=== PATIENT | female | born 1940 | race Caucasian/White ===

== ENCOUNTER 2023-06-10 10:30 | Inpatient (IN) ==
[2023-06-10] MEDS ORDERED: SODIUM CHLORIDE 0.9% 1,000 ML IV ONE ×2 (10:46→14:18)
--- NOTE | 2023-06-10 10:48 | Emergency Department Note ---
Impression & Plan Urinary tract infection, Acute hypotension, Kidney stone on left side, Compression fx, lumbar spine ED Provider Note NAME: MAX BEASLEY AGE: 82 SEX: F : 1940 ARRIVES VIA: Ambulance INFORMANT: Patient, EMS ED PROVIDER(S): Gui Medrano DO CHIEF COMPLAINT: Fever HPI: The patient is an 82-year-old female who presented to the emergency department by ambulance. She does not offer much history. Much of the history was obtained from the prehospital personnel. Patient reportedly is being treated for a urinary tract infection. The patient has been on multiple antibiotics and recently was started on Bactrim. The patient was previously on Macrobid. There was a reported fever as well as lower abdominal pain bilaterally. There is been no reported vomiting. There is been no reported syncope. The patient was sent by the custodial staff. She was treated with Tylenol prior to arrival. ROS: See above HPI for pertinent positives & negatives. A total of 10 systems reviewed and were otherwise negative. PAST MEDICAL HISTORY: See Below PAST SURGICAL HISTORY: See Below FAMILY HISTORY: See Below SOCIAL HISTORY: See Below HOME MEDICATIONS: See Below ALLERGIES: See Below VITALS: See Below PHYSICAL EXAMINATION: GENERAL: Patient is awake alert in no acute distress patient is resting comfortably and showing no signs of anxiety EYES: The conjunctivae are clear. The pupils are round and reactive. EARS, NOSE, MOUTH AND THROAT: The nose is without any evidence of any deformity. NECK: The neck is nontender and supple. RESPIRATORY: Normal respiratory effort is noted there is no evidence of wheezing rhonchi or rales CARDIOVASCULAR: Regular rate and rhythm noted there no murmurs rubs or gallops normal S1 normal S2. GASTROINTESTINAL: The abdomen is soft. Abdomen is nontender. MUSCULOSKELETAL/EXTREMITIES: There is no evidence of gross deformity full range of motion is noted in the hips and shoulders. SKIN: There is no obvious evidence of any rash. There are no petechiae, pallor or cyanosis noted. NEUROLOGIC: Patient is awake alert and oriented to person and place but not time. Strength was symmetric but diminished MEDICAL DECISION MAKING: The patient is an 82-year-old female who presented to the emergency department with multiple complaints. The patient's had recurrent urinary tract infection but also has a history of kidney stone. She had no discomfort but a reported fever was noted prior to sending the patient to the emergency department. She was treated with IV fluids and IV antibiotics. She was reevaluated multiple times. I discussed the patient's laboratory and radiographic studies with her and her family. Given her ongoing hypotension and her findings on workup I did discuss her condition with the on-call [facility] [address] hospitalist. I will also consult the on-call urologist about the patient. He is unclear if she definitely needs a stent at this time although she may have an infected kidney stone. Triage Nursing notes reviewed. Prior medical records reviewed Vital Signs: reviewed and remarkable for hypotension. Differential diagnosis: Viral syndrome, otitis, pharyngitis, pneumonia, influenza, meningitis, urinary tract infection, sepsis, bacteremia, as well as other pathologies. ER treatment provided: See below Diagnostics interpreted by me: ECG: EKG was obtained in the emergency department. My interpretation is normal sinus rhythm at 63 bpm. There is no ectopy. There is no acute ST segment abnormalities. Anterior T wave versions were noted. No previous EKG was available for comparison. Cardiac Monitoring: An order was placed for continuous cardiac monitoring. The monitor shows a rate of 59 bpm with sinus bradycardia Laboratory studies: As stated above and show below. Imaging studies: See below. Radiographic imaging was reviewed by myself Consultation(s): Dr. Philippe was notified about the patient. He will evaluate the patient in the emergency department. I discussed this case with Dr. Herrmann who is on-call for urology. Past Med/Surg History Medical History Dementia Social History Smoking Status: Never smoker Preferred Language: Omani Feels Safe at Home: Yes Allergies Allergies Allergy/AdvReac Type Severity Reaction Status Date / Time No Known Allergies Allergy Unverified 06/10/23 13:37 Home Meds Home Medications Medication Instructions Recorded Confirmed apixaban 5 mg tablet (Eliquis) 5 mg PO BID 04/05/23 06/10/23 cholecalciferol (vitamin D3) 125 125 mcg PO DAILY 04/05/23 06/10/23 mcg (5,000 unit) tablet (Vitamin D3) donepezil 10 mg tablet 10 mg PO HS 04/05/23 06/10/23 escitalopram oxalate 10 mg tablet 10 mg PO DAILY 04/05/23 06/10/23 lisinopril 5 mg tablet 5 mg PO DAILY 04/05/23 06/10/23 melatonin 5 mg tablet 5 mg PO HS 04/05/23 06/10/23 pantoprazole 40 mg tablet,delayed 40 mg PO DAILY 04/05/23 06/10/23 release calcium carbonate 600 mg calcium 600 mg PO DAILY 06/10/23 06/10/23 (1,500 mg) tablet (Calcium) lorazepam 0.5 mg tablet See Rx Instructions .Route .COMPLEX 06/10/23 06/10/23 potassium chloride 20 mEq oral 20 meq PO BID 06/10/23 06/10/23 packet Results & Data (ED) Vital Signs Vital Signs - 24 hr 06/10/23 10:36 06/10/23 10:38 06/10/23 10:40 Temperature Temperature Source Pulse Rate 63 66 65 Pulse Rate from SpO2 Sensor 62 65 Respiratory Rate 24 21 Blood Pressure Blood Pressure Mean Pulse Oximetry 93 93 Oxygen Delivery Method Sepsis Recent Fever Within 48 Hours Sepsis New/Unexplained Change in Mental Status Sepsis Action Taken by Nursing 06/10/23 10:41 06/10/23 10:47 06/10/23 10:50 Temperature 37.2 C Temperature Source Oral Pulse Rate 65 58 L Pulse Rate from SpO2 Sensor 58 L Respiratory Rate 18 21 Blood Pressure 102/51 L Blood Pressure Mean 68 Pulse Oximetry 93 90 93 Oxygen Delivery Method Room Air Room Air Sepsis Recent Fever Within 48 Hours No Sepsis New/Unexplained Change in Mental Status No Sepsis Action Taken by Nursing No Action Required 06/10/23 11:00 06/10/23 11:00 06/10/23 11:10 Temperature Temperature Source Pulse Rate 63 59 L Pulse Rate from SpO2 Sensor 63 60 Respiratory Rate 20 24 Blood Pressure 95/52 L Blood Pressure Mean 62 Pulse Oximetry 92 91 Oxygen Delivery Method Sepsis Recent Fever Within 48 Hours Sepsis New/Unexplained Change in Mental Status Sepsis Action Taken by Nursing 06/10/23 11:30 06/10/23 11:40 06/10/23 11:50 Temperature Temperature Source Pulse Rate 60 57 L 56 L Pulse Rate from SpO2 Sensor Respiratory Rate 13 22 21 Blood Pressure Blood Pressure Mean Pulse Oximetry Oxygen Delivery Method Sepsis Recent Fever Within 48 Hours Sepsis New/Unexplained Change in Mental Status Sepsis Action Taken by Nursing 06/10/23 12:00 06/10/23 12:01 06/10/23 12:02 Temperature Temperature Source Pulse Rate 55 L 60 Pulse Rate from SpO2 Sensor Respiratory Rate 16 17 Blood Pressure 100/48 L Blood Pressure Mean 78 Pulse Oximetry Oxygen Delivery Method Sepsis Recent Fever Within 48 Hours Sepsis New/Unexplained Change in Mental Status Sepsis Action Taken by Nursing 06/10/23 12:02 06/10/23 12:10 06/10/23 12:20 Temperature Temperature Source Pulse Rate 61 62 58 L Pulse Rate from SpO2 Sensor Respiratory Rate 22 23 23 Blood Pressure Blood Pressure Mean Pulse Oximetry Oxygen Delivery Method Sepsis Recent Fever Within 48 Hours Sepsis New/Unexplained Change in Mental Status Sepsis Action Taken by Nursing 06/10/23 12:30 06/10/23 12:30 06/10/23 12:40 Temperature Temperature Source Pulse Rate 61 54 L Pulse Rate from SpO2 Sensor Respiratory Rate 25 H 21 Blood Pressure 98/53 L Blood Pressure Mean 60 Pulse Oximetry Oxygen Delivery Method Sepsis Recent Fever Within 48 Hours Sepsis New/Unexplained Change in Mental Status Sepsis Action Taken by Nursing 06/10/23 12:50 06/10/23 13:00 06/10/23 13:00 Temperature Temperature Source Pulse Rate 55 L 57 L Pulse Rate from SpO2 Sensor Respiratory Rate 20 23 Blood Pressure 96/53 L Blood Pressure Mean 63 Pulse Oximetry Oxygen Delivery Method Sepsis Recent Fever Within 48 Hours Sepsis New/Unexplained Change in Mental Status Sepsis Action Taken by Nursing 06/10/23 13:10 06/10/23 13:20 06/10/23 13:30 Temperature Temperature Source Pulse Rate 52 L 61 Pulse Rate from SpO2 Sensor Respiratory Rate 17 23 Blood Pressure 100/48 L Blood Pressure Mean 63 Pulse Oximetry Oxygen Delivery Method Sepsis Recent Fever Within 48 Hours Sepsis New/Unexplained Change in Mental Status Sepsis Action Taken by Nursing 06/10/23 13:30 06/10/23 13:40 06/10/23 13:50 Temperature Temperature Source Pulse Rate 60 57 L 54 L Pulse Rate from SpO2 Sensor Respiratory Rate 24 22 24 Blood Pressure Blood Pressure Mean Pulse Oximetry Oxygen Delivery Method Sepsis Recent Fever Within 48 Hours Sepsis New/Unexplained Change in Mental Status Sepsis Action Taken by Nursing 06/10/23 13:56 06/10/23 13:56 06/10/23 14:00 Temperature Temperature Source Pulse Rate 52 L Pulse Rate from SpO2 Sensor Respiratory Rate 20 Blood Pressure 105/49 L 96/50 L Blood Pressure Mean 71 60 Pulse Oximetry Oxygen Delivery Method Sepsis Recent Fever Within 48 Hours Sepsis New/Unexplained Change in Mental Status Sepsis Action Taken by Nursing 06/10/23 14:00 06/10/23 14:10 06/10/23 14:20 Temperature Temperature Source Pulse Rate 50 L 55 L 55 L Pulse Rate from SpO2 Sensor Respiratory Rate 18 19 18 Blood Pressure Blood Pressure Mean Pulse Oximetry Oxygen Delivery Method Sepsis Recent Fever Within 48 Hours Sepsis New/Unexplained Change in Mental Status Sepsis Action Taken by Nursing 06/10/23 14:30 06/10/23 14:30 06/10/23 14:39 Temperature Temperature Source Pulse Rate 59 L 55 L Pulse Rate from SpO2 Sensor Respiratory Rate 22 Blood Pressure 87/59 L Blood Pressure Mean 62 Pulse Oximetry Oxygen Delivery Method Sepsis Recent Fever Within 48 Hours Sepsis New/Unexplained Change in Mental Status Sepsis Action Taken by Nursing 06/10/23 14:40 06/10/23 14:50 06/10/23 15:00 Temperature Temperature Source Pulse Rate 55 L 60 65 Pulse Rate from SpO2 Sensor Respiratory Rate 19 21 21 Blood Pressure Blood Pressure Mean Pulse Oximetry Oxygen Delivery Method Sepsis Recent Fever Within 48 Hours Sepsis New/Unexplained Change in Mental Status Sepsis Action Taken by Nursing 06/10/23 15:00 06/10/23 15:10 06/10/23 15:20 Temperature Temperature Source Pulse Rate 58 L 59 L Pulse Rate from SpO2 Sensor Respiratory Rate 15 15 Blood Pressure 102/62 Blood Pressure Mean 73 Pulse Oximetry Oxygen Delivery Method Sepsis Recent Fever Within 48 Hours Sepsis New/Unexplained Change in Mental Status Sepsis Action Taken by Nursing 06/10/23 15:30 06/10/23 15:30 06/10/23 15:40 Temperature Temperature Source Pulse Rate 58 L 59 L Pulse Rate from SpO2 Sensor Respiratory Rate 23 15 Blood Pressure 97/49 L Blood Pressure Mean 54 Pulse Oximetry Oxygen Delivery Method Sepsis Recent Fever Within 48 Hours Sepsis New/Unexplained Change in Mental Status Sepsis Action Taken by Half-Way Medications Current Medication List: was personally reviewed by me Laboratory Data Attestation: I reviewed the patient's lab results. 06/10/23 10:40 06/10/23 10:40 Lab Results 06/10/23 06/10/23 06/10/23 Range/Units 10:40 12:10 15:07 WBC 6.93 (4.8-10.8) K/ul RBC 4.83 (4.20-5.40) M/uL Hgb 14.1 (12.0-16.0) g/dl Hct 43.3 (37.0-47.0) % MCV 89.6 (80.0-100.0) fL MCH 29.2 (25.0-34.0) pg MCHC 32.6 (32.0-36.0) g/dL RDW Std Deviation 44.5 (36.4-46.3) fL RDW Coeff of Estefani 13.5 (11.5-14.5) % Plt Count 133 (130-400) K/uL MPV 10.4 (9.4-12.4) fL Immature Gran % (Auto) 1.2 % Neut % (Auto) 85.4 % Lymph % (Auto) 5.3 % [place] % (Auto) 7.4 % Eos % (Auto) 0.1 % Baso % (Auto) 0.6 % Neut # (Auto) 5.92 (1.40-6.50) K/uL Lymph # (Auto) 0.37 L (1.20-3.40) K/uL [place] # (Auto) 0.51 (0.11-0.59) K/uL Eos # (Auto) 0.01 (0.00-0.50) K/uL Baso # (Auto) 0.04 (0.00-0.20) K/uL Immature Gran # (Auto) 0.08 (0.01-0.20) K/uL PT 12.5 H (9.0-12.0) Seconds INR 1.2 H (0.9-1.1) APTT 35.9 H (21.0-31.0) Seconds PTT Ratio 1.3 Sodium 137 (136-145) mmol/L Potassium 5.0 (3.5-5.1) mmol/L Chloride 105 (98-107) mmol/L Carbon Dioxide 23 (21-32) mmol/L Anion Gap 9 (3-11) BUN 19 (6-23) mg/dl Creatinine 1.67 H (0.6-1.2) mg/dl Est Cr Clr Drug Dosing 23.5 ml/min Est GFR ( Amer) 32.2 ml/min Est GFR (Non-Af Amer) 27.8 ml/min BUN/Creatinine Ratio 11.4 (10-20) Glucose 107 H (70-99(Fasting)) mg/dl Lactate 1.1 (0.4-2.0) mmol/L Calcium 9.0 (8.6-10.3) mg/dl Magnesium 2.0 (1.7-2.4) mg/dl Total Bilirubin 0.7 (0.2-1.0) mg/dl Direct Bilirubin 0.1 (0-0.2) mg/dl AST 18 (13-39) U/L ALT 7 (7-52) U/L Alkaline Phosphatase 46 (34-104) U/L Troponin I High Sens 10.3 (0-14) pg/ml Total Protein 6.7 (6.0-8.3) gm/dl Albumin 3.8 (3.4-5.0) gm/dl Procalcitonin 0.22 (0-0.5) ng/ml Urine Color Dark Yellow Urine Appearance Cloudy A (Clear) Urine pH 5.0 (4.5-7.5) Ur Specific [place] 1.017 (1.000-1.030) Urine Protein 1+ H (Negative) Urine Glucose (UA) Negative (Negative) Urine Ketones 2+ H (Negative) Urine Blood 3+ H (Negative) Urine Nitrite Negative (Negative) Urine Bilirubin Negative (Negative) Urine Urobilinogen Negative (Negative) Ur Leukocyte Esterase 2+ H (Negative) Urine WBC (Auto) 10-30 H (0-5) /hpf Urine RBC (Auto) >30 H (0-4) /hpf U Hyaline Cast (Auto) 1-5 (0-5) /lpf U Epithel Cells (Auto) 0-5 (0-5) /lpf Urine Bacteria (Auto) Negative (Negative) Urine Yeast Not Reportable SARS-CoV-2 (PCR) NEGATIVE (Negative) Influenza Type A (PCR) Negative (Neg) Influenza Type B (PCR) Negative (Neg) RSV (RT-PCR) Negative (Neg) Administered Medications Discontinued Medications Sodium Chloride (Nss) 1,000 mls @ 999 mls/hr IV .Q1H1M ONE Stop: 06/10/23 11:46 Last Infusion: 06/10/23 12:22 Dose: Infused Documented By: Admin: 06/10/23 11:13 Dose: 999 mls/hr Documented By: GIACOMO Sodium Chloride (Nss) 1,000 mls @ 999 mls/hr IV .Q1H1M ONE Stop: 06/10/23 15:18 Last Infusion: 06/10/23 15:35 Dose: Infused Documented By: Admin: 06/10/23 14:28 Dose: 999 mls/hr Documented By: GIACOMO Cefepime HCl (Maxipime) 2,000 mg in 20 mls @ 5 mls/min IV NOW STA; Protocol Stop: 06/10/23 15:40 Last Admin: 06/10/23 16:37 Dose: 5 mls/min Documented By: GIACOMO Imaging Data Attestation: I personally reviewed and interpreted this imaging study as follows: My Impression: 1 view chest x-ray was obtained in the emergency department. My interpretation is no free air or definite infiltrate, final report below. CT of the abdomen and pelvis was obtained in the emergency department. My interpretation is left-sided kidney stone, no free air, final report below. Radiologist's Impression: Abdomen/Pelvis CT 06/10/23 10:[address] WITHOUT CONTRAST CT DOSE: 1003.5 mGy.cm HISTORY: Acute febrile urinary tract infection and left flank pain kidney stone with fever TECHNIQUE: Multiaxial CT images of the abdomen and pelvis were performed without contrast. A dose lowering technique was utilized adhering to the principles of ALARA. COMPARISON STUDY: None. FINDINGS: Calcified hilar lymph nodes, pulmonary, splenic and hepatic granulomata. Coronary artery calcifications. Mild bibasilar bronchial wall thickening. There are a few low suspicion solid pulmonary nodules noted within the lung bases measuring up to 3 mm. No free air. Unremarkable pancreas, adrenal glands and gallbladder. The liver is otherwise unremarkable. Mild nonspecific bilateral perinephric stranding. 3.1 cm cyst of the posterior interpolar left kidney. There is a 1.8 cm calculus within the left renal pelvis. Mild hydronephrosis. No ureteral calculi identified. Fibroid uterus. Unremarkable urinary bladder. Indeterminate likely benign 2.4 cm left adnexal cystic focus. Atherosclerosis of the aorta. No lymphadenopathy. Tiny hiatal hernia. No bowel obstruction. Mild/moderate rectal fecal retention. Colonic diverticulosis. No CT evidence of acute appendicitis. Unremarkable soft tissues. No acute fracture. Degenerative changes of the spine, pelvis and hips. Moderate L1 superior endplate compression deformity without retropulsion. Subacute to chronic nondisplaced fracture at S3-S4 anteriorly. IMPRESSION: 1. 1.8 cm calculus within the left renal pelvis results in mild hydronephrosis. 2. No bowel obstruction or bowel wall thickening. 3. Prior granulomatous disease. 4. Age-indeterminate L1 compression deformity without retropulsion, likely subacute. 5. Additional findings as above. ACT 112: Negative or not required by law. The above report was generated using voice recognition software. It may contain grammatical, syntax or spelling errors. Electronically signed by: Joseph Hernandez M.D. 06/10/2023 12:02 PM Chest X-Ray 06/10/23 10:46 SINGLE VIEW CHEST CLINICAL HISTORY: Sepsis FINDINGS: An AP, portable, upright chest radiograph is compared to study dated 04/05/2023. The examination is mildly degraded by portable technique and patient rotation. The cardiomediastinal silhouette is top normal for projection noting atherosclerotic calcification of the thoracic aorta. Chronic interstitial thickening is similar to previous. There is bibasilar scarring/atelectasis. No airspace consolidation or large pleural effusion is identified. No pneumothorax is seen. The skeletal structures are osteopenic. The bony thorax is grossly intact. Fusion hardware is noted in the lower cervical spine. IMPRESSION: No active disease in the chest. ACT 112: Negative or not required by law. Electronically signed by: Shashi Fernandez M.D. 06/10/2023 11:04 AM Discharge Plan Visit Data Chief Complaint: Abdominal Pain Stated Complaint: AB PAIN ED Provider: Gui Medrano Discharge Problem: Urinary tract infection, Acute hypotension, Kidney stone on left side, Compression fx, lumbar spine Patient Disposition: Being Evaluated by Hospitalist Forms Stand Alone Forms: My [facility] Prescriptions Prescriptions: No Action donepezil 10 mg Tablet 10 mg PO HS pantoprazole 40 mg Tablet,Delayed Release (Dr/Ec) 40 mg PO DAILY lisinopril 5 mg Tablet 5 mg PO DAILY escitalopram oxalate 10 mg Tablet 10 mg PO DAILY melatonin 5 mg Tablet 5 mg PO HS Eliquis 5 mg Tablet 5 mg PO BID cholecalciferol (vitamin D3) [Vitamin D3] 125 mcg (5,000 unit) Tablet 125 mcg PO DAILY calcium carbonate [Calcium 600] 600 mg calcium (1,500 mg) Tablet 600 mg PO DAILY potassium chloride 20 mEq packet 20 meq PO BID lorazepam 0.5 mg tablet See Rx Instructions .ROUTE .COMPLEX Rx Instructions: Take 0.5mg by mouth in the morning and 1mg by mouth at bedtime if needed Referrals Referrals: Chuy Mcdonald [Primary Care Provider] - Discharge Problem: Urinary tract infection Qualifiers: Urinary tract infection type: site unspecified Hematuria presence: with hematuria Qualified Code(s): N39.0 - Urinary tract infection, site not specified Compression fx, lumbar spine Qualifiers: Encounter type: initial encounter Lumbar vertebra fracture level: L1 Qualified Code(s): S32.010A - Wedge compression fracture of first lumbar vertebra, initial encounter for closed fracture
--- NOTE | 2023-06-10 11:06 | XRay Report ---
SINGLE VIEW CHEST CLINICAL HISTORY: Sepsis FINDINGS: An AP, portable, upright chest radiograph is compared to study dated 04/05/2023. The examina tion is mildly degraded by portable technique and patient rotation. The cardiomediastinal silhouette is top normal for projection noting atherosclerotic calcification of the thoracic aorta. Chronic int erstitial thickening is similar to previous. There is bibasilar scarring/atelectasis. No airspace con solidation or large pleural effusion is identified. No pneumothorax is seen. The skeletal structures are osteopenic. The bony thorax is grossly intact. Fusion hardware is noted in the lower cervical spi ne. IMPRESSION: No active disease in the chest. ACT 112: Negative or not required by law. Electronically signed by: Shashi Fernandez M.D. 06/10/2023 11:04 AM
[2023-06-10 11:19] LABS: Basophils # (auto) 0.04 K/uL (0.00-0.20); Basophils % (auto) 0.6 %; Eosinophils # (auto) 0.01 K/uL (0.00-0.50); Eosinophils % (auto) 0.1 %; Hematocrit (blood only) 43.3 % (37.0-47.0); Hemoglobin 14.1 g/dl (12.0-16.0); Immature Granulocytes # (auto) 0.08 K/uL (0.01-0.20); Immature Granulocytes % (auto) 1.2 %; Lymphocytes # (auto) 0.37 K/uL (1.20-3.40); Lymphocytes % (auto) 5.3 %; Mean Corpuscular Hemoglobin 29.2 pg (25.0-34.0); Mean Corpuscular Hgb Conc 32.6 g/dL (32.0-36.0); Mean Corpuscular Volume 89.6 fL (80.0-100.0); Mean Platelet Volume 10.4 fL (9.4-12.4); Monocytes # (auto) 0.51 K/uL (0.11-0.59); Monocytes % (auto) 7.4 %; Neutrophils # (auto) 5.92 K/uL (1.40-6.50); Neutrophils % (auto) 85.4 %; Platelet Count 133 K/uL (130-400); RDW Coefficient of Variation 13.5 % (11.5-14.5); RDW Standard Deviation 44.5 fL (36.4-46.3); Red Blood Count 4.83 M/uL (4.20-5.40); White Blood Count 6.93 K/ul (4.8-10.8)
[2023-06-10 11:36] LABS: INR 1.2 (0.9-1.1); Partial Thromboplastin Ratio 1.3; Partial Thromboplastin Time 35.9 Seconds (21.0-31.0); Prothrombin Time 12.5 Seconds (9.0-12.0)
[2023-06-10 11:40] LABS: Albumin Level 3.8 gm/dl (3.4-5.0); BUN Creatinine Ratio 11.4 (10-20); Bilirubin Direct 0.1 mg/dl (0-0.2); Bilirubin,Total 0.7 mg/dl (0.2-1.0); Creatinine Clr Calc Pharmacy 23.5 ml/min; Est GFR (African American) 32.2 ml/min; Est GFR (Non-African American) 27.8 ml/min; Total Protein 6.7 gm/dl (6.0-8.3); Troponin I High Sensitivity 10.3 pg/ml (0-14)
--- NOTE | 2023-06-10 12:03 | CT Scan Report ---
ABDOMEN AND PELVIS CT WITHOUT CONTRAST CT DOSE: 1003.5 mGy.cm HISTORY: Acute febrile urinary tract infection and left flank pain kidney stone with fever TECHNIQUE: Multiaxial CT images of the abdomen and pelvis were performed without contrast. A dose lo wering technique was utilized adhering to the principles of ALARA. COMPARISON STUDY: None. FINDINGS: Calcified hilar lymph nodes, pulmonary, splenic and hepatic granulomata. Coronary artery ca lcifications. Mild bibasilar bronchial wall thickening. There are a few low suspicion solid pulmonary nodules noted within the lung bases measuring up to 3 mm. No free air. Unremarkable pancreas, adrena l glands and gallbladder. The liver is otherwise unremarkable. Mild nonspecific bilateral perinephric stranding. 3.1 cm cyst of the posterior interpolar left kidney . There is a 1.8 cm calculus within the left renal pelvis. Mild hydronephrosis. No ureteral calculi i dentified. Fibroid uterus. Unremarkable urinary bladder. Indeterminate likely benign 2.4 cm left adne xal cystic focus. Atherosclerosis of the aorta. No lymphadenopathy. Tiny hiatal hernia. No bowel obstruction. Mild/moderate rectal fecal retention. Colonic diverticulosi s. No CT evidence of acute appendicitis. Unremarkable soft tissues. No acute fracture. Degenerative c hanges of the spine, pelvis and hips. Moderate L1 superior endplate compression deformity without ret ropulsion. Subacute to chronic nondisplaced fracture at S3-S4 anteriorly. IMPRESSION: 1. 1.8 cm calculus within the left renal pelvis results in mild hydronephrosis. 2. No bowel obstruction or bowel wall thickening. 3. Prior granulomatous disease. 4. Age-indeterminate L1 compression deformity without retropulsion, likely subacute. 5. Additional findings as above. ACT 112: Negative or not required by law. The above report was generated using voice recognition software. It may contain grammatical, syntax o r spelling errors. Electronically signed by: Joseph Hernandez M.D. 06/10/2023 12:02 PM
[2023-06-10 12:56] LABS: Influenza A virus by PCR Negative (Neg); Influenza B virus by PCR Negative (Neg); RSV by PCR Negative (Neg); SARS CoV2 RNA(COVID-19) Ceph NEGATIVE (Negative)
[2023-06-10] MEDS ORDERED: CEFEPIME 2,000 MG/20 ML VIAL IV STA (15:37)
[2023-06-10 15:51] LABS: Appearance Urine Cloudy (Clear); Bacteria Urine Automated Negative (Negative); Bilirubin Urine Negative (Negative); Blood Urine 3+ (Negative); Color Urine Dark Yellow; Epithelial Cell Urine Auto 0-5 /lpf (0-5); Glucose Urine UA Negative (Negative); Ketones Urine 2+ (Negative); Leukocyte Esterase Urine 2+ (Negative); Nitrite Urine Negative (Negative); Protein Urine 1+ (Negative); Specific Gravity Urine 1.017 (1.000-1.030); Urobilinogen Urine Negative (Negative)
[2023-06-10 16:01] LABS: RBC Urine Automated >30 /hpf (0-4)
--- NOTE | 2023-06-10 17:22 | History & Physical Report ---
Date of Service June 10, 2023 Assessment & Plan (1) Urinary tract infection: Plan: -Admit to med/tele -Currently hemodynamically stable and asymptomatic -Patient has a history of recurrent UTI and kidney stones -Was noted to be lethargic, febrile at 101F, and complaining of abd pain at her assisted living home -Presented with soft BP with UA concerning for UTI -Lactate is WNL, patient appears clinical stable on exam -S/P 2L NSS and a dose of cefepime -Patient has grown e.coli resistant to ampicillin, Augmentin, Levaquin, and Nitrofurantoin previously -Will continue with Ceftriaxone for now -Will give 1L LR overnight as she appears dehydrated on exam -ED spoke with Urology who examined her CT scan and does not believe the patient to have an infected stone at this time and does not need emergent surgical intervention >They will continue to follow while admitted -Will hold her Eliquis for now if case of OR tomorrow, BL JG's for DVT PPX at this time -HH diet until midnight then NPO -AM CBC, CMP, Mag, PT/INR (2) Acute hypotension: Plan: -Likely a combination of dehydration, acute infection, and being given her am dose of lisinopril per the MAR sent with her -Currently stable and clinically well-appearing since receiving 2L NSS and dose of cefepime in the ED -No leukocytosis, lactate WNL, not on chronic steroids -Continue ceftriaxone, hold lisinopril, will give gentle IV fluids overnight (3) Kidney stone on left side: Plan: -1.8 cm calculus within the left renal pelvis results in mild hydronephrosis on CT of the abd/pelvis today -Cr is at 1.67, unsure of baseline -Patient is making urine with stable electrolytes -Continue IV fluids, will also start daily flomax -Urology consulted and will follow -NPO at midnight in case of stent placement tomorrow (4) Dementia: Plan: -Continue Namenda and prn HS ativan -Fall/aspiration precautions Plan The patient was discussed with Dr. 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 In the ED she was noted to have BP's with systolics in the 80-100's but otherwise stable. Labs were significant for a lymphocyte count of 0.37, cr of 1.67 (unsure of previous baseline), Covid 19/influenza/rsv negative, and UA with cloudy urine, 2+ leukocyte esterase, 10- 30 WBC, > 30 RBC's, 0-5 epithelial cells, and negative bacteria. Chest xray was negative for acute findings. CT of the abd/pelvis wo con was read as "1. 1.8 cm calculus within the left renal pelvis results in mild hydronephrosis. 2. No bowel obstruction or bowel wall thickening. 3. Prior granulomatous disease. 4. Age-indeterminate L1 compression deformity without retropulsion, likely subacute. 5. Additional findings as above.". Prior to admission the patient was given 2L NSS and a dose of cefepime. At the time of the exam the patient was sitting in bed in no acute distress with her Step son and his sitting bedside. History was obtained from family due to the patient's baseline mental status. Her step son explains that the patient has a long history of kidney stones and UTI's. She recently completed a course of antibiotics for UTI. Today she was reportedly more lethargic, had a fever, of 101F, and was complaining of abdominal pain. The patient currently denies any pain and appears clinically stable. We discussed code status, family brought the patient's living will. She is a DNR/DNI and her step son makes medical decisions for her. Please refer to Dr. Philippe's attestation for any changes to the treatment plan Allergies Allergy/AdvReac Type Severity Reaction Status Date / Time No Known Allergies Allergy Unverified 06/10/23 13:37 Home Medications Medication Instructions Recorded Confirmed Type apixaban 5 mg tablet (Eliquis) 5 mg PO BID 04/05/23 06/10/23 History cholecalciferol (vitamin D3) 125 125 mcg PO DAILY 04/05/23 06/10/23 History mcg (5,000 unit) tablet (Vitamin D3) donepezil 10 mg tablet 10 mg PO HS 04/05/23 06/10/23 History escitalopram oxalate 10 mg tablet 10 mg PO DAILY 04/05/23 06/10/23 History lisinopril 5 mg tablet 5 mg PO DAILY 04/05/23 06/10/23 History melatonin 5 mg tablet 5 mg PO HS 04/05/23 06/10/23 History pantoprazole 40 mg tablet,delayed 40 mg PO DAILY 04/05/23 06/10/23 History release calcium carbonate 600 mg calcium 600 mg PO DAILY 06/10/23 06/10/23 History (1,500 mg) tablet (Calcium) lorazepam 0.5 mg tablet See Rx Instructions .Route .COMPLEX 06/10/23 06/10/23 History potassium chloride 20 mEq oral 20 meq PO BID 06/10/23 06/10/23 History packet Past Med/Surg History Medical History (Updated 06/10/23 @ 17:59 by Tai Birch PA-C) Dementia Social History Smoking Status: Never smoker Second Hand Exposure: No; Do You Dip or Chew Tobacco: No; Tobacco Cessation Education Requested by Patient: No Hx Alcohol Use: No Hx Substance Use: No Preferred Language: Bulgarian Communication Ability: Effective 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: No Current Living Situation: Care Home Current Living Situation Comment: [facility] Other Information That Helps Us Care for You: No Feels Safe at Home: Yes Safety Concerns: Feels Safe At This Time Physical Exam Physical Exam: Physical Exam: General: In no acute distress, stated age, well-nourished, non-toxic appearing HEENT: Normocephalic, atraumatic, no scleral icterus, pupils around round, symmetrical, and reactive to light, dry mucus membranes, trachea midline, no thyromegaly Chest/Pulm: No respiratory distress, symmetrical chest expansion, clear breath sounds throughout Cardiac: RRR, no murmurs noted Abdomen: Negative for ascites and bruising, normoactive bowel sounds, soft, non-tender to palpation throughout : Negative CVA tenderness BL Musculoskeletal: Symmetrical and without signs of acute trauma, upper and lower extremities with full ROM, no atrophy, spasticity, or flaccidity Extremities: Radial, dorsalis pedis, and posterior tibial pulses are intact and symmetrical, no edema noted in the BL LE's Skin: Patient with thickened and dark patch of skin on the frontal scalp from chronic scratching, no signs of skin breakdown or infection Neuro: Alert and oriented to person, place, month, year, and president, no focal defects, CN II-XII tested and intact, finger to nose test negative, no tremors noted Psych: No acute distress, pleasantly confused, calm and cooperative during the exam Results & Data Results & Data Vital Signs (Past 12 Hours) Vital Signs Temp Pulse Resp BP Pulse Ox O2 Del Method 06/10/23 15:40 59 L 15 06/10/23 15:30 97/49 L 06/10/23 15:30 58 L 23 06/10/23 15:20 59 L 15 06/10/23 15:10 58 L 15 06/10/23 15:00 102/62 06/10/23 15:00 65 21 06/10/23 14:50 60 21 06/10/23 14:40 55 L 19 06/10/23 14:39 55 L 06/10/23 14:30 59 L 22 06/10/23 14:30 87/59 L 06/10/23 14:20 55 L 18 06/10/23 14:10 55 L 19 06/10/23 14:00 50 L 18 06/10/23 14:00 96/50 L 06/10/23 13:56 52 L 20 06/10/23 13:56 105/49 L 06/10/23 13:50 54 L 24 06/10/23 13:40 57 L 22 06/10/23 13:30 60 24 06/10/23 13:30 100/48 L 06/10/23 13:20 61 23 06/10/23 13:10 52 L 17 06/10/23 13:00 57 L 23 06/10/23 13:00 96/53 L 06/10/23 12:50 55 L 20 06/10/23 12:40 54 L 21 06/10/23 12:30 98/53 L 06/10/23 12:30 61 25 H 06/10/23 12:20 58 L 23 06/10/23 12:10 62 23 06/10/23 12:02 61 22 06/10/23 12:02 100/48 L 06/10/23 12:01 60 17 06/10/23 12:00 55 L 16 06/10/23 11:50 56 L 21 06/10/23 11:40 57 L 22 06/10/23 11:30 60 13 06/10/23 11:10 59 L 24 91 06/10/23 11:00 63 20 92 06/10/23 11:00 95/52 L 06/10/23 10:50 58 L 21 93 06/10/23 10:47 90 Room Air 06/10/23 10:41 37.2 C 65 18 102/51 L 93 Room Air 06/10/23 10:40 65 21 93 06/10/23 10:38 66 06/10/23 10:36 63 24 93 Laboratory Results Abnormal lab results 06/10/23 06/10/23 Range/Units 10:40 15:07 Lymph # (Auto) 0.37 L (1.20-3.40) K/uL PT 12.5 H (9.0-12.0) Seconds INR 1.2 H (0.9-1.1) APTT 35.9 H (21.0-31.0) Seconds Creatinine 1.67 H (0.6-1.2) mg/dl Glucose 107 H (70-99(Fasting)) mg/dl Urine Appearance Cloudy A (Clear) Urine Protein 1+ H (Negative) Urine Ketones 2+ H (Negative) Urine Blood 3+ H (Negative) Ur Leukocyte Esterase 2+ H (Negative) Urine WBC (Auto) 10-30 H (0-5) /hpf Urine RBC (Auto) >30 H (0-4) /hpf Diagnostic Findings Abdomen/Pelvis CT 06/10/23 10:[address] WITHOUT CONTRAST CT DOSE: 1003.5 mGy.cm HISTORY: Acute febrile urinary tract infection and left flank pain kidney stone with fever TECHNIQUE: Multiaxial CT images of the abdomen and pelvis were performed without contrast. A dose lowering technique was utilized adhering to the principles of ALARA. COMPARISON STUDY: None. FINDINGS: Calcified hilar lymph nodes, pulmonary, splenic and hepatic granulomata. Coronary artery calcifications. Mild bibasilar bronchial wall thickening. There are a few low suspicion solid pulmonary nodules noted within the lung bases measuring up to 3 mm. No free air. Unremarkable pancreas, adrenal glands and gallbladder. The liver is otherwise unremarkable. Mild nonspecific bilateral perinephric stranding. 3.1 cm cyst of the posterior interpolar left kidney. There is a 1.8 cm calculus within the left renal pelvis. Mild hydronephrosis. No ureteral calculi identified. Fibroid uterus. Unremarkabl e urinary bladder. Indeterminate likely benign 2.4 cm left adnexal cystic focus. Atherosclerosis of the aorta. No lymphadenopathy. Tiny hiatal hernia. No bowel obstruction. Mild/moderate rectal fecal retention. Colonic diverticulosis. No CT evidence of acute appendicitis. Unremarkable soft tissues. No acute fracture. Degenerative changes of the spine, pelvis and hips. Moderate L1 superior endplate compression deformity without retropulsion. Subacute to chronic nondisplaced fracture at S3-S4 anteriorly. IMPRESSION: 1. 1.8 cm calculus within the left renal pelvis results in mild hydronephrosis. 2. No bowel obstruction or bowel wall thickening. 3. Prior granulomatous disease. 4. Age-indeterminate L1 compression deformity without retropulsion, likely subacute. 5. Additional findings as above. ACT 112: Negative or not required by law. The above report was generated using voice recognition software. It may contain grammatical, syntax or spelling errors. Electronically signed by: Joseph Hernandez M.D. 06/10/2023 12:02 PM Chest X-Ray 06/10/23 10:46 SINGLE VIEW CHEST CLINICAL HISTORY: Sepsis FINDINGS: An AP, portable, upright chest radiograph is compared to study dated 04/05/2023. The examination is mildly degraded by portable technique and patient rotation. The cardiomediastinal silhouette is top normal for projection noting atherosclerotic calcification of the thoracic aorta. Chronic interstitial thickening is similar to previous. There is bibasilar scarring/atelectasis. No airspace consolidation or large pleural effusion is identified. No pneumothorax is seen. The skeletal structures are osteopenic. The bony thorax is grossly intact. Fusion hardware is noted in the lower cervical spine. IMPRESSION: No active disease in the chest. ACT 112: Negative or not required by law. Electronically signed by: Shashi Fernandez M.D. 06/10/2023 11:04 AM ECG Additional Comments: Normal sinus rhythm Nonspecific T wave abnormality Abnormal ECG No previous ECGs available Code Status & VTE Plan Code Status DNR/DNI VTE Prophylaxis Plan VTE Prophylaxis will be ordered: Yes Supervising Physician Co-Signing Physician Notes I personally saw and examined the patient. I verified all fox points and agree with Tai Birch PA-C with the following exceptions and/or additions: 82 year old female presents to the ER with worsening fatigue, abdominal pain and fever at home. Unable to get any significant history from the patient when seen and family had left. She reports feeling fine to me and just reports she has been diagnosed with a urine infection but cannot tell me any specific symptoms she has been having to end up in hospital. Please see collateral history from PA above. O/E Alert and orientated to place, person and year, HS RRR, no murmurs, Chest CTAB, Abdo SNT, no pedal edema, no CVA tenderness A/P UTI in setting of kidney stone - Consult urology. IV ceftriaxone (prior E. coli sensitive to this and no history of pseudomonas known) Acute hypotension - normal lactate without dizziness and normal cap refill suggests good perfusion. No need for aggressive fluid resuscitation. Agree with stopping lisinopril however. PG Care Time/CCT Total # of Minutes Spent Total Time Spent with Patient: Total time spent is greater than 50% in coordination of care (as documented) at patient's floor/unit and/or counseling patient: [place] [address] INT INP/OBS CARE 2/55MIN Patient Type New Medical Decision Making Low Complexity Diagnoses Urinary tract infection N39.0; R31.9 Hematuria presence: with hematuria Urinary tract infection type: site unspecified Acute hypotension I95.9 Kidney stone on left side N20.0 Dementia F03.90 (1) Urinary tract infection Hematuria presence: with hematuria Urinary tract infection type: site unspecified Qualified Code(s): N39.0 - Urinary tract infection, site not specified; R31.9 - Hematuria, unspecified
[2023-06-10] MEDS ORDERED: ACETAMINOPHEN 325 MG TAB PO PRN (17:42)
[2023-06-10] MEDS ORDERED: TAMSULOSIN HCL 0.4 MG CAP PO ONE (17:44)
[2023-06-10] MEDS ORDERED: PLASMA-LYTE A 1,000 ML IV SCH (17:45)
[2023-06-10] MEDS: EUCERIN CR 120 GM JAR EXT SCH (20:03)
[2023-06-10] MEDS: LORazepam 0.5 MG TAB PO PRN (22:24)
[2023-06-10] MEDS: DONEPEZIL HCL 10 MG TAB PO SCH (23:54)
[2023-06-11 04:20] LABS: Basophils # (auto) 0.03 K/uL (0.00-0.20); Basophils % (auto) 0.6 %; Eosinophils # (auto) 0.13 K/uL (0.00-0.50); Eosinophils % (auto) 2.5 %; Hematocrit (blood only) 39.5 % (37.0-47.0); Hemoglobin 12.5 g/dl (12.0-16.0); Immature Granulocytes # (auto) 0.06 K/uL (0.01-0.20); Immature Granulocytes % (auto) 1.2 %; Lymphocytes # (auto) 0.38 K/uL (1.20-3.40); Lymphocytes % (auto) 7.4 %; Mean Corpuscular Hemoglobin 28.9 pg (25.0-34.0); Mean Corpuscular Hgb Conc 31.6 g/dL (32.0-36.0); Mean Corpuscular Volume 91.4 fL (80.0-100.0); Mean Platelet Volume 10.6 fL (9.4-12.4); Monocytes # (auto) 0.46 K/uL (0.11-0.59); Monocytes % (auto) 8.9 %; Neutrophils % (auto) 79.4 %; Platelet Count 107 K/uL (130-400); RDW Coefficient of Variation 13.4 % (11.5-14.5); RDW Standard Deviation 45.9 fL (36.4-46.3); Red Blood Count 4.32 M/uL (4.20-5.40); White Blood Count 5.16 K/ul (4.8-10.8)
[2023-06-11 04:36] LABS: Albumin Globulin Ratio 1.4 (0.9-2); Albumin Level 3.2 gm/dl (3.4-5.0); BUN Creatinine Ratio 14.3 (10-20); Bilirubin,Total 0.6 mg/dl (0.2-1.0); Calcium 7.7 mg/dl (8.6-10.3); Creatinine Clr Calc Pharmacy 32.9 ml/min; Est GFR (African American) 48.5 ml/min; Est GFR (Non-African American) 41.9 ml/min; Globulin 2.3 gm/dl (2.5-4.0); Magnesium 1.8 mg/dl (1.7-2.4); Potassium 4.6 mmol/L (3.5-5.1); Total Protein 5.5 gm/dl (6.0-8.3)
[2023-06-11 04:45] LABS: INR 1.1 (0.9-1.1); Prothrombin Time 12.1 Seconds (9.0-12.0)
[2023-06-11] MEDS: cefTRIAXone SODIUM 2,000 MG in DEXTROSE 5 % MINI-B 50 ML IV SCH (06:07)
[2023-06-11] MEDS: PANTOprazole 40 MG TAB PO SCH (10:13)
[2023-06-11] MEDS: ESCITALOPRAM OXALATE 10 MG TAB PO SCH (10:14)
--- NOTE | 2023-06-11 10:23 | Urology Consultation ---
Date of Consultation June 11, 2023 Assessment & Plan (1) Kidney stone on left side: (2) Urinary tract infection: Plan 82yo/F admitted with concern for infection and a 1.8cm stone within the left renal pelvis with mild hydronephrosis. Patient is afebrile and hemodynamically stable. Her labs today show no leukocytosis and a normal renal function. Urine and blood cultures are pending. She is on ceftriaxone. I discussed with her son Jc who is the primary contact/POA the CT findings of a questionable obstructing 1.8 cm stone in the left renal pelvis. We also discussed the concern of a possible urinary tract infection as well. We discussed that given this, our recommendation is for cystoscopy and left ureteral stent placement. Ureteral stents were discussed as well as postoperative issues and pain management. Discussed that a second procedure would be needed for stone treatment in the future. Risks and benefits were discussed. All questions were answered. He is agreeable to proceeding. Will plan to proceed to OR today for cystoscopy, left retrograde pyelogram, left ureteral stent placement. Risks and benefits to be reviewed with patient and son by Dr. Heredia. Covered with scheduled IV ceftriaxone. Keep NPO. Urology will follow. Supervising Physician Co-Signing Physician Notes Discussed patient with BLAISE. Agree with plan. Discussed options with patient and her POA, son-in-law. They are agreeable to a stent. Discussed that if I can place a stent she may have to have a nephrostomy tube placed. Consent obtained. Patient marked. 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 In the ED she was afebrile and had soft BPs with systolics in the [id number] but otherwise stable. Labs showing no leukocytosis and a creatinine of 1.67. Urinalysis with 3+ blood, 2+ LE, negative nitrite, negative bacteria. CT abdomen pelvis obtained and demonstrated a 1.8 cm calculus within the left renal pelvis resulting in mild hydronephrosis. Patient admitted to medicine service for continued care and management. Patient was examined at bedside this AM. Awake, resting in bed on arrival. No acute distress. HPI limited due to mental status. I did speak with her son Jc via telephone call who is the primary contact/POA. He reports a long history of kidney stones and UTIs. Reports has had several infections over the last 6 months. Allergies Allergy/AdvReac Type Severity Reaction Status Date / Time No Known Allergies Allergy Unverified 06/10/23 13:37 Home Medications Medication Instructions Recorded Confirmed Type apixaban 5 mg tablet (Eliquis) 5 mg PO BID 04/05/23 06/10/23 History cholecalciferol (vitamin D3) 125 125 mcg PO DAILY 04/05/23 06/10/23 History mcg (5,000 unit) tablet (Vitamin D3) donepezil 10 mg tablet 10 mg PO HS 04/05/23 06/10/23 History escitalopram oxalate 10 mg tablet 10 mg PO DAILY 04/05/23 06/10/23 History lisinopril 5 mg tablet 5 mg PO DAILY 04/05/23 06/10/23 History melatonin 5 mg tablet 5 mg PO HS 04/05/23 06/10/23 History pantoprazole 40 mg tablet,delayed 40 mg PO DAILY 04/05/23 06/10/23 History release calcium carbonate 600 mg calcium 600 mg PO DAILY 06/10/23 06/10/23 History (1,500 mg) tablet (Calcium) lorazepam 0.5 mg tablet See Rx Instructions .Route .COMPLEX 06/10/23 06/10/23 History potassium chloride 20 mEq oral 20 meq PO BID 06/10/23 06/10/23 History packet Patient History Medical History Dementia Social History Smoking Status: Never smoker Second Hand Exposure: No; Do You Dip or Chew Tobacco: No; Tobacco Cessation Education Requested by Patient: No Hx Alcohol Use: No Hx Substance Use: No Preferred Language: Eritrean Communication Ability: Effective Manager Leadership Development Required: No Current Living Situation: [facility] Current Living Situation Comment: [facility] Other Information That Helps Us Care for You: No Feels Safe at Home: Yes Safety Concerns: Feels Safe At This Time Assistive Devices: Walker and Other Review of Systems Review of Systems: All systems reviewed & are unremarkable except as noted in HPI & below Physical Exam Constitutional: no acute distress Baseline Alzheimer's dementia Neck: normal visual inspection Respiratory: no respiratory distress and no labored breathing Gastrointestinal (Abdomen): Percussion/Palpation: abdomen soft; abdomen nontender Musculoskeletal: Head/Neck/Chest: normocephalic Skin: No visible rashes or lesions to exposed skin areas Neurologic: moves all extremities and awake Psychiatric: Orientation: alert and oriented to person Results & Data Vital Signs (Past 12 Hours) Vital Signs Pulse Pulse Resp BP Pulse Ox Pulse Ox O2 Del Method 06/11/23 07:09 63 06/11/23 06:47 82 16 104/74 93 Room Air 06/11/23 04:45 76 16 109/57 L 98 Room Air 06/10/23 22:30 97 O2 Del Method 06/11/23 07:09 06/11/23 06:47 06/11/23 04:45 06/10/23 22:30 Room Air PG Care Time/CCT Total # of Minutes Spent Total Time Spent with Patient: Total time spent is greater than 50% in coordination of care (as documented) at patient's floor/unit and/or counseling patient: Coding Level of Care Code 32658 INT INP/OBS CARE 2/55MIN Diagnoses Kidney stone on left side N20.0 Urinary tract infection N39.0; R31.9 Hematuria presence: with hematuria Urinary tract infection type: site unspecified (2) Urinary tract infection Hematuria presence: with hematuria Urinary tract infection type: site unspecified Qualified Code(s): N39.0 - Urinary tract infection, site not specified; R31.9 - Hematuria, unspecified
[2023-06-11] MEDS: EUCERIN CR 120 GM JAR EXT SCH ×3 (11:00→21:46)
--- NOTE | 2023-06-11 11:10 | Anesthesiology Consultation ---
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 History Surgery Operation Date: 06/11/23 17:10 Proposed Procedures p Cystoscopy, Left Retrograde Pyelogram, Left Ureteral Stent Placement - Ortiz Heredia MD Height/Weight Height: 5 ft 6 in Weight: 64.6 kg Allergies Allergy/AdvReac Type Severity Reaction Status Date / Time No Known Allergies Allergy Unverified 06/10/23 13:37 Medications Home Medications Medication Instructions Recorded Confirmed Last Taken apixaban 5 mg tablet (Eliquis) 5 mg PO BID 04/05/23 06/10/23 04/05/23 cholecalciferol (vitamin D3) 125 125 mcg PO DAILY 04/05/23 06/10/23 04/05/23 mcg (5,000 unit) tablet (Vitamin D3) donepezil 10 mg tablet 10 mg PO HS 04/05/23 06/10/23 04/04/23 escitalopram oxalate 10 mg tablet 10 mg PO DAILY 04/05/23 06/10/23 04/05/23 lisinopril 5 mg tablet 5 mg PO DAILY 04/05/23 06/10/23 04/05/23 melatonin 5 mg tablet 5 mg PO HS 04/05/23 06/10/23 04/04/23 pantoprazole 40 mg tablet,delayed 40 mg PO DAILY 04/05/23 06/10/23 04/05/23 release calcium carbonate 600 mg calcium 600 mg PO DAILY 06/10/23 06/10/23 Unknown (1,500 mg) tablet (Calcium) lorazepam 0.5 mg tablet See Rx Instructions .Route .COMPLEX 06/10/23 06/10/23 Unknown potassium chloride 20 mEq oral 20 meq PO BID 06/10/23 06/10/23 Unknown packet Active Medications Generic Name Dose Route Start Last Admin Trade Name Freq PRN Reason Stop Dose Admin Donepezil HCl 10 mg 06/10/23 22:03 06/10/23 23:54 Donepezil Hcl 10 Mg Tab PO 07/10/23 22:02 10 mg HS TIERA Administration Escitalopram Oxalate 10 mg 06/11/23 09:00 06/11/23 10:14 Escitalopram Oxalate 10 Mg Tab PO 07/11/23 08:59 10 mg DAILY TIERA Administration Ceftriaxone Sodium 2,000 mg/ 50 mls @ 100 mls/hr 06/11/23 05:00 06/11/23 06:44 Dextrose IV 06/16/23 04:59 Infused Q24H TIERA Infusion Protocol Lorazepam 0.5 mg 06/10/23 22:03 06/10/23 22:24 Lorazepam 0.5 Mg Tab PO 07/10/23 22:02 0.5 mg BID PRN Administration Anxiety, agitation Multi-Ingredient Cream 1 appln 06/10/23 21:00 06/10/23 20:03 Eucerin Cr 120 Gm Jar EXT 07/10/23 20:59 1 appln TID TIERA Administration Pantoprazole Sodium 40 mg 06/11/23 09:00 06/11/23 10:13 Pantoprazole 40 Mg Tab PO 07/11/23 08:59 40 mg DAILY TIERA Administration Past Medical History Medical History Dementia Social History Smoking Status: Never smoker Do You Dip or Chew Tobacco: No Hx Alcohol Use: No Hx Substance Use: No substance use type: does not use Physical Exam Vital Signs Last Vital Signs Temp 99.0 F 06/10/23 10:41 Pulse 63 06/11/23 07:09 Resp 16 06/11/23 06:47 BP 104/74 06/11/23 06:47 Pulse Ox 93 06/11/23 06:47 O2 Del Method Room Air 06/11/23 06:47 Testing Laboratory Results 06/11/23 03:52 06/11/23 03:52 PT 12.1 Seconds (9.0-12.0) H 06/11/23 03:52 INR 1.1 (0.9-1.1) 06/11/23 03:52 APTT 35.9 Seconds (21.0-31.0) H 06/10/23 10:40 Urine Color Dark Yellow 06/10/23 15:07 Urine Appearance Cloudy (Clear) A 06/10/23 15:07 Urine pH 5.0 (4.5-7.5) 06/10/23 15:07 Ur Specific [place] 1.017 (1.000-1.030) 06/10/23 15:07 Urine Protein 1+ (Negative) H 06/10/23 15:07 Urine Glucose (UA) Negative (Negative) 06/10/23 15:07 Urine Ketones 2+ (Negative) H 06/10/23 15:07 Urine Nitrite Negative (Negative) 06/10/23 15:07 Ur Leukocyte Esterase 2+ (Negative) H 06/10/23 15:07 Urine WBC (Auto) 10-30 /hpf (0-5) H 06/10/23 15:07 Urine RBC (Auto) >30 /hpf (0-4) H 06/10/23 15:07 U Hyaline Cast (Auto) 1-5 /lpf (0-5) 06/10/23 15:07 U Epithel Cells (Auto) 0-5 /lpf (0-5) 06/10/23 15:07 Urine Bacteria (Auto) Negative (Negative) 06/10/23 15:07 Electrocardiogram Date: 06/10/23 Normal sinus rhythm, rate 63 bpm Nonspecific T wave abnormality Abnormal ECG No previous ECGs available Chest X-Ray Date: 06/10/23 Findings: + NAD
[2023-06-11] MEDS ORDERED: LIDOCAINE 2% 2 ML VIAL/AMP(20MG/ML) INFIL ONE (11:51)
[2023-06-11] MEDS ORDERED: fentaNYL citrate PF 100 MCG/2 ML VIAL ONE (11:51)
[2023-06-11] MEDS ORDERED: PROPOFOL IV EMULSION 10 MG/ML 20 ML VIAL IV ONE (11:51)
[2023-06-11] MEDS ORDERED: ONDANSETRON INJ 2 MG/ML 2 ML VIAL ONE (11:53)
[2023-06-11] MEDS ORDERED: ONDANSETRON INJ 2 MG/ML 2 ML VIAL IV PRN (13:04)
[2023-06-11] MEDS ORDERED: ATROPINE SULFATE 0.1 MG/ML 10ML SYR IV PRN (13:04)
[2023-06-11] MEDS ORDERED: ePHEDrine sulfate 50 MG/ML AMP IV PRN (13:04)
[2023-06-11] MEDS ORDERED: fentaNYL citrate PF 100 MCG/2 ML VIAL IV PRN (13:04)
[2023-06-11] MEDS ORDERED: DIATRIZOATE MEGLUMINE 30% 100ML VIAL INSTIL ONE (13:58)
--- NOTE | 2023-06-11 14:06 | Operative Report ---
PG Post Operative Report Pre & Post Diagnosis Operation Date: 06/11/23 17:10 Pre-Op Diagnosis: Kidney stone on left side, urinary tract infection Post-Op Diagnosis: Kidney stone on left side, urinary tract infection I identified the patient and participated in the time-out.: Yes Procedure Operation Date: 06/11/23 17:10 Actual Procedures p Cystoscopy, Left Retrograde Pyelogram with radiographic interpretation, Left Ureteral Stent Placement(Left) - Ortiz Heredia MD Surgeon Ortiz Heredia MD [place] None Estimated Blood Loss 0 Findings See Below Large stone in renal pelvis that I had to push into the kidney to get the wire into the kidney. Required several attempts but able to get a proximal curl Specimens None Drains 6 [facility] by 26 cm left ureteral stent Anesthesia Type MAC Indications 82-year-old female with dementia with a UTI and a large renal pelvis stone. Reported hydro on scan but not overly impressive 1 personally reviewed. Opted to stent her as stone will likely cause her issues in the future. Description of Procedure After informed consent was obtained, the patient was transported operative suite. MAC anesthesia was induced. The patient was placed in dorsal lithotomy position prepped and draped in a sterile fashion. They received preoperative ceftriaxone for antibiotic prophylaxis. An appropriate surgical timeout was performed. A 19.5 [facility] rigid scope was inserted per urethra into the bladder. Kwok cystoscopy revealed no stones or lesions. I turned my attention the left ureteral orifice and intubated this with a 5 [facility] open-ended catheter. A left retrograde pyelogram was shot which showed mild hydro and a large renal pelvis stone. A sensor wire was advanced into the kidney and confirmed fluoroscopically. I had to do this several times under live fluoroscopy to move the stone out of the way. A 6 [facility] [place] by 26 cm left ureteral stent was deployed with a good proximal coil in the renal pelvis and a good distal coil noted in t he bladder. This took considerable effort to get an appropriate coil due to the size of the stone. These were confirmed fluoroscopically and under direct visualization, respectively. The bladder was emptied and the scope was removed. This concluded the end of the case. All counts were correct at the end of the case. I was present, scrubbed, and actively participated for the entirety of the p rocedure. I attest to the content of the Intraoperative Record and any orders documented therein. Any exceptions are noted below.
--- NOTE | 2023-06-11 14:24 | Anesthesiology Progress Note ---
Date of Service June 11, 2023 Anesthesia Post Procedure Vital Signs Vital Signs: Temp Pulse Pulse Pulse Resp BP BP 06/11/23 14:20 60 19 109/58 L 06/11/23 14:12 97.7 F 61 17 93/48 L 06/11/23 12:49 98.6 F 67 20 110/55 L 06/11/23 12:15 63 20 94/41 L 06/11/23 07:09 63 06/11/23 06:47 82 16 104/74 06/11/23 04:45 76 16 109/57 L 06/10/23 22:30 06/10/23 20:00 73 15 06/10/23 20:00 118/64 06/10/23 19:50 73 20 06/10/23 19:40 73 15 06/10/23 19:30 73 15 06/10/23 19:30 123/57 L 06/10/23 19:20 78 21 06/10/23 19:10 69 20 06/10/23 19:00 66 15 06/10/23 19:00 119/50 L 06/10/23 18:50 67 15 06/10/23 18:40 65 23 06/10/23 18:39 71 06/10/23 18:30 68 15 06/10/23 18:20 64 24 06/10/23 18:10 67 23 06/10/23 18:00 68 23 06/10/23 18:00 121/60 06/10/23 17:50 64 15 06/10/23 17:40 62 20 06/10/23 17:30 70 18 06/10/23 17:20 66 19 06/10/23 17:10 62 24 06/10/23 17:00 67 22 06/10/23 17:00 123/48 L 06/10/23 16:50 66 21 06/10/23 16:40 65 22 06/10/23 16:30 59 L 20 06/10/23 16:30 110/66 06/10/23 16:20 60 21 06/10/23 16:10 60 17 06/10/23 16:00 109/50 L 06/10/23 16:00 58 L 14 06/10/23 15:50 58 L 19 06/10/23 15:40 59 L 15 06/10/23 15:30 97/49 L 06/10/23 15:30 58 L 23 06/10/23 15:20 59 L 15 06/10/23 15:10 58 L 15 06/10/23 15:00 102/62 06/10/23 15:00 65 21 06/10/23 14:50 60 21 06/10/23 14:40 55 L 19 06/10/23 14:39 55 L 06/10/23 14:30 59 L 22 06/10/23 14:30 87/59 L Pulse Ox Pulse Ox O2 Del Method O2 Del Method O2 Flow Rate 06/11/23 14:20 100 Oxymask 8 06/11/23 14:12 95 Oxymask 8 06/11/23 12:49 93 Room Air 06/11/23 12:15 92 Room Air 06/11/23 07:09 06/11/23 06:47 93 Room Air 06/11/23 04:45 98 Room Air 06/10/23 22:30 97 Room Air 06/10/23 20:00 06/10/23 20:00 06/10/23 19:50 06/10/23 19:40 06/10/23 19:30 06/10/23 19:30 06/10/23 19:20 06/10/23 19:10 06/10/23 19:00 06/10/23 19:00 06/10/23 18:50 06/10/23 18:40 06/10/23 18:39 06/10/23 18:30 06/10/23 18:20 06/10/23 18:10 06/10/23 18:00 06/10/23 18:00 06/10/23 17:50 06/10/23 17:40 06/10/23 17:30 06/10/23 17:20 06/10/23 17:10 06/10/23 17:00 06/10/23 17:00 06/10/23 16:50 06/10/23 16:40 06/10/23 16:30 06/10/23 16:30 06/10/23 16:20 06/10/23 16:10 06/10/23 16:00 06/10/23 16:00 06/10/23 15:50 06/10/23 15:40 06/10/23 15:30 06/10/23 15:30 06/10/23 15:20 06/10/23 15:10 06/10/23 15:00 06/10/23 15:00 06/10/23 14:50 06/10/23 14:40 06/10/23 14:39 06/10/23 14:30 06/10/23 14:30 Transfer of Care Handoff Completed per policy Notes Mental Status: alert / awake / arousable and participated in evaluation Patient Amnestic to Procedure: Yes Nausea / Vomiting: adequately controlled Pain: adequately controlled Airway Patency, RR, SpO2: stable & adequate BP & HR: stable & adequate Hydration State: stable & adequate Anesthetic Complications: no major complications apparent and Pt Satisfied with anesthetic care
--- NOTE | 2023-06-11 14:25 | Electrocardiogram Report ---
Test Reason : Blood Pressure : / mmHG Vent. Rate : 063 BPM Atrial Rate : 063 BPM P-R Int : 172 ms QRS Dur : 078 ms QT Int : 416 ms P-R-T Axes : 025 -26 034 degrees QTc Int : 425 ms Normal sinus rhythm Nonspecific T wave abnormality Abnormal ECG No previous ECGs available Confirmed by Tanmay Norman ([id number]) on 06/11/2023 2:25:24 PM Referred By: REFERRED SELF Confirmed By:King Norman
--- NOTE | 2023-06-11 14:34 | Fluoroscopy Report ---
INTRAOPERATIVE RADIOGRAPHS CLINICAL HISTORY: Left ureteral stent placement. Fluoro time: 35 seconds Ka,r: 4.91 mGy FINDINGS: 2 spot fluoroscopic views of the left upper quadrant are correlated with abdominal CT dated 06/10/2023. The initial image shows contrast in the left renal pelvis. There is no significant hydro nephrosis. The second image shows the proximal end of a left ureteral stent in appropriate position. IMPRESSION: Intraoperative images from a left ureteral stent placement procedure as above. Electronically signed by: Shashi Fernandez M.D. 06/11/2023 2:33 PM
[2023-06-11] MEDS: DONEPEZIL HCL 10 MG TAB PO SCH (21:45)
[2023-06-11] MEDS: MELATONIN 3 MG TAB PO SCH (21:46)
--- NOTE | 2023-06-11 22:54 | Hospitalist Progress Note ---
Date of Service June 11, 2023 Assessment & Plan (1) Urinary tract infection: Plan: -Admit to med/tele -Awaiting cultures -S/P cystoscopy, left retrograde pyelogram, left ureteral stent placement on 06/11 -Currently hemodynamically stable and asymptomatic -Patient has a history of recurrent UTI and kidney stones No longer febrile (2) Acute hypotension: Plan: -Likely a combination of dehydration, acute infection, and being given her am dose of lisinopril per the MAR sent with her -Currently stable and clinically well-appearing since receiving 2L NSS and dose of cefepime in the ED -No leukocytosis, lactate WNL, not on chronic steroids -Continue ceftriaxone, hold lisinopril, will give gentle IV fluids overnight (3) Kidney stone on left side: Plan: -1.8 cm calculus within the left renal pelvis results in mild hydronephrosis on CT of the abd/pelvis today -Cr is at 1.67, unsure of baseline -Patient is making urine with stable electrolytes -Continue IV fluids, will also start daily flomax -Urology consulted and will follow (4) Dementia: Plan: -Continue Namenda and prn HS ativan -Fall/aspiration precautions Admission and Anticipated Discharge Date Admission Date: June 10, 2023 Subjective Patient reports no new symptoms. Review of Systems Review of Systems: All systems reviewed & are unremarkable except as noted in HPI & below Physical Exam Physical Exam: General: In no acute distress, stated age, well-nourished, non-toxic appearing HEENT: Normocephalic, atraumatic Chest/Pulm: No respiratory distress, symmetrical chest expansion, clear breath sounds throughout Cardiac: RR Abdomen: Negative for ascites and bruising, normoactive bowel sounds, soft, non- tender to palpation throughout : Negative CVA tenderness BL Extremities: Radial, dorsalis pedis, and posterior tibial pulses are intact and symmetrical, no edema noted in the BL LE's Skin: Patient with thickened and dark patch of skin on the frontal scalp from chronic scratching, no signs of skin breakdown or infection Neuro: Alert and oriented to person, place, month, year, and president, no focal defects, CN II-XII tested and intact, finger to nose test negative, no tremors noted Psych: No acute distress, pleasantly confused, calm and cooperative during the exam Results & Data Results & Data Vital Signs (Past 12 Hours) Vital Signs Temp Pulse Pulse Pulse Resp BP Pulse Ox 06/11/23 21:57 06/11/23 19:42 37.2 C 71 18 103/62 93 06/11/23 17:09 59 L 06/11/23 14:30 37.2 C 59 L 18 113/52 L 94 06/11/23 14:20 60 19 109/58 L 100 06/11/23 14:12 36.5 C 61 17 93/48 L 95 06/11/23 12:49 37 C 67 20 110/55 L 93 06/11/23 12:15 63 20 94/41 L 92 O2 Del Method O2 Del Method O2 Flow Rate 06/11/23 21:57 Room Air 06/11/23 19:42 Room Air 06/11/23 17:09 06/11/23 14:30 Room Air 06/11/23 14:20 Oxymask 8 06/11/23 14:12 Oxymask 8 06/11/23 12:49 Room Air 06/11/23 12:15 Room Air PG Care Time/CCT Total # of Minutes Spent Total Time Spent with Patient: Total time spent is greater than 50% in coordination of care (as documented) at patient's floor/unit and/or counseling patient: Coding Level of Care Code 24085 SUB INP/OBS CARE 2/35MIN Diagnoses Urinary tract infection N39.0; R31.9 Hematuria presence: with hematuria Urinary tract infection type: site unspecified Acute hypotension I95.9 Kidney stone on left side N20.0 Dementia F03.90 (1) Urinary tract infection Hematuria presence: with hematuria Urinary tract infection type: site unspecified Qualified Code(s): N39.0 - Urinary tract infection, site not specified; R31.9 - Hematuria, unspecified
[2023-06-12] MEDS: cefTRIAXone SODIUM 2,000 MG in DEXTROSE 5 % MINI-B 50 ML IV SCH (05:30)
[2023-06-12 05:44] LABS: Basophils # (auto) 0.03 K/uL (0.00-0.20); Basophils % (auto) 0.5 %; Eosinophils # (auto) 0.42 K/uL (0.00-0.50); Eosinophils % (auto) 7.2 %; Hematocrit (blood only) 38.4 % (37.0-47.0); Hemoglobin 12.6 g/dl (12.0-16.0); Immature Granulocytes # (auto) 0.05 K/uL (0.01-0.20); Immature Granulocytes % (auto) 0.9 %; Lymphocytes # (auto) 0.67 K/uL (1.20-3.40); Lymphocytes % (auto) 11.4 %; Mean Corpuscular Hemoglobin 29.3 pg (25.0-34.0); Mean Corpuscular Hgb Conc 32.8 g/dL (32.0-36.0); Mean Corpuscular Volume 89.3 fL (80.0-100.0); Mean Platelet Volume 10.7 fL (9.4-12.4); Monocytes # (auto) 0.58 K/uL (0.11-0.59); Monocytes % (auto) 9.9 %; Neutrophils # (auto) 4.11 K/uL (1.40-6.50); Neutrophils % (auto) 70.1 %; Platelet Count 119 K/uL (130-400); RDW Coefficient of Variation 13.3 % (11.5-14.5); RDW Standard Deviation 43.8 fL (36.4-46.3); White Blood Count 5.86 K/ul (4.8-10.8)
[2023-06-12 06:26] LABS: Albumin Globulin Ratio 1.3 (0.9-2); Bilirubin,Total 0.5 mg/dl (0.2-1.0); Calcium 7.9 mg/dl (8.6-10.3); Creatinine Clr Calc Pharmacy 44.5 ml/min; Est GFR (African American) 69.9 ml/min; Est GFR (Non-African American) 60.3 ml/min; Globulin 2.3 gm/dl (2.5-4.0); Total Protein 5.3 gm/dl (6.0-8.3)
[2023-06-12 06:42] LABS: Prothrombin Time 11.4 Seconds (9.0-12.0)
[2023-06-12] MEDS: PANTOprazole 40 MG TAB PO SCH (08:58)
[2023-06-12] MEDS: ESCITALOPRAM OXALATE 10 MG TAB PO SCH (08:58)
--- NOTE | 2023-06-12 09:21 | Urology Progress Note ---
Date of Service June 12, 2023 Assessment & Plan (1) Kidney stone on left side: Plan 82yo/F admitted with concern for infection and a 1.8cm stone within the left renal pelvis with mild hydronephrosis. She is status post cystoscopy with left ureteral stent placement on 06/11/2023. Patient doing well today and tolerating stent without issues Stable for discharge home from a urologic perspective Message has already been sent to schedule outpatient follow-up to discuss s tone treatment Urology to sign off Admission and Anticipated Discharge Date Admission Date: June 10, 2023 Subjective Afebrile with stable vitals. White blood cell count 5.8, creatinine 0.88 which is down from 1.19. Urine culture prelim no growth. Blood cultures negative. Patient denies any discomfort or issues urinating today. Review of Systems Review of Systems: 14 point review of systems negative outs rashi of what is listed above in HPI Physical Exam Physical Exam: General: Alert and oriented, no acute distress HEENT: Normocephalic, mucous membranes moist Pulmonary: Nonlabored respirations Abdomen: Nondistended Extremities: Moves all 4 spontaneously Neuro: No gross deficits Skin: Warm, dry, no rashes noted Results & Data Vital Signs (Past 12 Hours) Vital Signs Temp Pulse Pulse Resp BP Pulse Ox O2 Del Method 06/12/23 07:49 36.5 C 63 18 115/61 95 Room Air 06/12/23 07:48 48 L 06/12/23 03:15 36.7 C 60 18 107/55 L 93 Room Air 06/11/23 23:47 Room Air 06/11/23 23:26 36.9 C 61 18 104/58 L 92 Room Air 06/11/23 22:00 60 06/11/23 21:57 O2 Del Method 06/12/23 07:49 06/12/23 07:48 06/12/23 03:15 06/11/23 23:47 06/11/23 23:26 06/11/23 22:00 06/11/23 21:57 Room Air PG Care Time/CCT Total # of Minutes Spent Total Time Spent with Patient: Total time spent is greater than 50% in coordination of care (as documented) at patient's floor/unit and/or counseling patient: Coding Level of Care Code 95644 SUB INP/OBS CARE 2/35MIN Diagnoses Kidney stone on left side N20.0
--- NOTE | 2023-06-12 14:03 | Hospitalist Progress Note ---
Date of Service June 12, 2023 Assessment & Plan (1) Urinary tract infection: Plan: -Admit to med/tele -Awaiting cultures -S/P cystoscopy, left retrograde pyelogram, left ureteral stent placement on 06/11 -Currently hemodynamically stable and asymptomatic -Patient has a history of recurrent UTI and kidney stones No longer febrile Awaiting PT/OT evals. possible discharge on 06/13 (2) Acute hypotension: Plan: -Likely a combination of dehydration, acute infection, and being given her am dose of lisinopril per the MAR sent with her -Currently stable and clinically well-appearing since receiving 2L NSS and dose of cefepime in the ED -No leukocytosis, lactate WNL, not on chronic steroids -Continue ceftriaxone, hold lisinopril, will give gentle IV fluids overnight (3) Kidney stone on left side: Plan: -1.8 cm calculus within the left renal pelvis results in mild hydronephrosis on CT of the abd/pelvis today -Cr is at 1.67, unsure of baseline -Patient is making urine with stable electrolytes -Continue IV fluids, will also start daily flomax -Urology consulted and will follow (4) Dementia: Plan: -Continue Namenda and prn HS ativan -Fall/aspiration precautions Admission and Anticipated Discharge Date Admission Date: June 10, 2023 Subjective Patient reports no new symptoms. Review of Systems Review of Systems: All systems reviewed & are unremarkable except as noted in HPI & below Physical Exam Physical Exam: General: In no acute distress, stated age, well-nourished, non-toxic appearing HEENT: Normocephalic, atraumatic Chest/Pulm: No respiratory distress, symmetrical chest expansion, clear breath sounds throughout Cardiac: RR Abdomen: Negative for ascites and bruising, normoactive bowel sounds, soft, non- tender to palpation throughout : Negative CVA tenderness BL Extremities: Radial, dorsalis pedis, and posterior tibial pulses are intact and symmetrical, no edema noted in the BL LE's Skin: Patient with thickened and dark patch of skin on the frontal scalp from chronic scratching, no signs of skin breakdown or infection Neuro: Alert and oriented to person, place, month, year, and president, no focal defects, CN II-XII tested and intact, finger to nose test negative, no tremors noted Psych: No acute distress, pleasantly confused, calm and cooperative during the exam Results & Data Results & Data Vital Signs (Past 12 Hours) Vital Signs Temp Pulse Pulse Resp BP Pulse Ox O2 Del Method 06/12/23 12:10 36.9 C 58 L 18 101/58 L 94 Room Air 06/12/23 07:49 36.5 C 63 18 115/61 95 Room Air 06/12/23 07:48 48 L 06/12/23 03:15 36.7 C 60 18 107/55 L 93 Room Air PG Care Time/CCT Total # of Minutes Spent Total Time Spent with Patient: Total time spent is greater than 50% in coordination of care (as documented) at patient's floor/unit and/or counseling patient: Coding Level of Care Code 72779 SUB INP/OBS CARE 2/35MIN Diagnoses Urinary tract infection N39.0; R31.9 Hematuria presence: with hematuria Urinary tract infection type: site unspecified Acute hypotension I95.9 Kidney stone on left side N20.0 Dementia F03.90 (1) Urinary tract infection Hematuria presence: with hematuria Urinary tract infection type: site unspecified Qualified Code(s): N39.0 - Urinary tract infection, site not specified; R31.9 - Hematuria, unspecified
[2023-06-12] MEDS: EUCERIN CR 120 GM JAR EXT SCH ×3 (19:36→22:34)
[2023-06-12] MEDS: DONEPEZIL HCL 10 MG TAB PO SCH (20:44)
[2023-06-12] MEDS: MELATONIN 3 MG TAB PO SCH (20:44)
[2023-06-13] MEDS: cefTRIAXone SODIUM 2,000 MG in DEXTROSE 5 % MINI-B 50 ML IV SCH (06:04)
[2023-06-13 06:07] LABS: Basophils # (auto) 0.02 K/uL (0.00-0.20); Basophils % (auto) 0.4 %; Eosinophils # (auto) 0.18 K/uL (0.00-0.50); Eosinophils % (auto) 3.6 %; Hematocrit (blood only) 37.8 % (37.0-47.0); Hemoglobin 12.4 g/dl (12.0-16.0); Immature Granulocytes # (auto) 0.02 K/uL (0.01-0.20); Immature Granulocytes % (auto) 0.4 %; Lymphocytes # (auto) 0.82 K/uL (1.20-3.40); Lymphocytes % (auto) 16.5 %; Mean Corpuscular Hgb Conc 32.8 g/dL (32.0-36.0); Mean Corpuscular Volume 88.3 fL (80.0-100.0); Monocytes # (auto) 0.48 K/uL (0.11-0.59); Monocytes % (auto) 9.7 %; Neutrophils # (auto) 3.45 K/uL (1.40-6.50); Neutrophils % (auto) 69.4 %; Platelet Count 146 K/uL (130-400); RDW Coefficient of Variation 13.2 % (11.5-14.5); RDW Standard Deviation 42.8 fL (36.4-46.3); Red Blood Count 4.28 M/uL (4.20-5.40); White Blood Count 4.97 K/ul (4.8-10.8)
[2023-06-13 06:28] LABS: Albumin Globulin Ratio 1.3 (0.9-2); BUN Creatinine Ratio 17.9 (10-20); Bilirubin,Total 0.4 mg/dl (0.2-1.0); Calcium 7.8 mg/dl (8.6-10.3); Creatinine Clr Calc Pharmacy 46.7 ml/min; Est GFR (Non-African American) 63.8 ml/min; Globulin 2.3 gm/dl (2.5-4.0); Potassium 3.9 mmol/L (3.5-5.1); Total Protein 5.3 gm/dl (6.0-8.3)
[2023-06-13 06:33] LABS: Prothrombin Time 11.4 Seconds (9.0-12.0)
[2023-06-13] MEDS: EUCERIN CR 120 GM JAR EXT SCH ×3 (09:42→20:06)
[2023-06-13] MEDS: ESCITALOPRAM OXALATE 10 MG TAB PO SCH (09:43)
[2023-06-13] MEDS: PANTOprazole 40 MG TAB PO SCH (09:43)
--- NOTE | 2023-06-13 17:13 | Hospitalist Progress Note ---
Date of Service June 13, 2023 Assessment & Plan (1) Urinary tract infection: Plan: -Admit to med/tele -Awaiting cultures -S/P cystoscopy, left retrograde pyelogram, left ureteral stent placement on 06/11 -Currently hemodynamically stable and asymptomatic -Patient has a history of recurrent UTI and kidney stones No longer febrile PT/OT evals completed case management will arrange discharge hopefiully tomorrow depending on if facility can take her. possible discharge on 06/14 (2) Acute hypotension: Plan: -Likely a combination of dehydration, acute infection, and being given her am dose of lisinopril per the MAR sent with her -Currently stable and clinically well-appearing since receiving 2L NSS and dose of cefepime in the ED -No leukocytosis, lactate WNL, not on chronic steroids -Continue ceftriaxone, hold lisinopril, will give gentle IV fluids overnight (3) Kidney stone on left side: Plan: -1.8 cm calculus within the left renal pelvis results in mild hydronephrosis on CT of the abd/pelvis today -Cr is at 1.67, unsure of baseline -Patient is making urine with stable electrolytes -Continue IV fluids, will also start daily flomax -Urology consulted and will follow (4) Dementia: Plan: -Continue Namenda and prn HS ativan -Fall/aspiration precautions Admission and Anticipated Discharge Date Admission Date: June 10, 2023 Subjective Patient reports no new symptoms. Review of Systems Review of Systems: All systems reviewed & are unremarkable except as noted in HPI & below Physical Exam Physical Exam: General: In no acute distress, stated age, well-nourished, non-toxic appearing HEENT: Normocephalic, atraumatic Chest/Pulm: No respiratory distress, symmetrical chest expansion, clear breath sounds throughout Cardiac: RR Abdomen: Negative for ascites and bruising, normoactive bowel sounds, soft, non- tender to palpation throughout : Negative CVA tenderness BL Extremities: Radial, dorsalis pedis, and posterior tibial pulses are intact and symmetrical, no edema noted in the BL LE's Skin: Patient with thickened and dark patch of skin on the frontal scalp from chronic scratching, no signs of skin breakdown or infection Neuro: Alert and oriented to person, place, month, year, and president, no focal defects, CN II-XII tested and intact, finger to nose test negative, no tremors noted Psych: No acute distress, pleasantly confused, calm and cooperative during the exam Results & Data Results & Data Vital Signs (Past 12 Hours) Vital Signs Temp Pulse Pulse Resp BP Pulse Ox O2 Del Method 06/13/23 15:30 79 06/13/23 11:39 36.9 C 71 16 114/68 93 Room Air 06/13/23 08:06 36.8 C 57 L 18 119/68 94 Room Air 06/13/23 07:26 55 L PG Care Time/CCT Total # of Minutes Spent Total Time Spent with Patient: Total time spent is greater than 50% in coordination of care (as documented) at patient's floor/unit and/or counseling patient: Coding Level of Care Code 28398 SUB INP/OBS CARE 2/35MIN Diagnoses Urinary tract infection N39.0; R31.9 Hematuria presence: with hematuria Urinary tract infection type: site unspecified Acute hypotension I95.9 Kidney stone on left side N20.0 Dementia F03.90 (1) Urinary tract infection Hematuria presence: with hematuria Urinary tract infection type: site unspecified Qualified Code(s): N39.0 - Urinary tract infection, site not specified; R31.9 - Hematuria, unspecified
[2023-06-13] MEDS: DONEPEZIL HCL 10 MG TAB PO SCH (20:06)
[2023-06-13] MEDS: MELATONIN 3 MG TAB PO SCH (20:06)
[2023-06-13] MEDS: LORazepam 0.5 MG TAB PO PRN (20:06)
[2023-06-14] MEDS: cefTRIAXone SODIUM 2,000 MG in DEXTROSE 5 % MINI-B 50 ML IV SCH (04:50)
[2023-06-14 06:09] LABS: Hematocrit (blood only) 37.9 % (37.0-47.0); Mean Corpuscular Hgb Conc 34.3 g/dL (32.0-36.0); Mean Corpuscular Volume 87.5 fL (80.0-100.0); Mean Platelet Volume 10.1 fL (9.4-12.4); Platelet Count 157 K/uL (130-400); RDW Coefficient of Variation 13.2 % (11.5-14.5); RDW Standard Deviation 43.1 fL (36.4-46.3); Red Blood Count 4.33 M/uL (4.20-5.40); White Blood Count 5.87 K/ul (4.8-10.8)
[2023-06-14 06:27] LABS: BUN Creatinine Ratio 16.3 (10-20); C Reactive Protein 2.08 mg/dl (0-0.5); Calcium 8.4 mg/dl (8.6-10.3); Creatinine Clr Calc Pharmacy 42.6 ml/min; Est GFR (African American) 66.3 ml/min; Est GFR (Non-African American) 57.2 ml/min; Potassium 3.6 mmol/L (3.5-5.1)
[2023-06-14] MEDS: ESCITALOPRAM OXALATE 10 MG TAB PO SCH (08:03)
[2023-06-14] MEDS: PANTOprazole 40 MG TAB PO SCH (08:03)
[2023-06-14] MEDS: EUCERIN CR 120 GM JAR EXT SCH (08:04)
--- NOTE | 2023-06-14 12:54 | Discharge Summary ---
Date of Service June 14, 2023 Admission HPI Per Admitting Provider Alexandra is an 82 year old female resident of [facility] with a PMH significant for alzhemier's dementia, aifb on eliquis, anxiety, HTN who was sent to the [facility] ED on 06/10 due to complaints of abdominal pain and concerns for UTI with kidney stones. In the ED she was noted to have BP's with systolics in the 80-100's but otherwise stable. Labs were significant for a lymphocyte count of 0.37, cr of 1.67 (unsure of previous baseline), Covid 19/influenza/rsv negative, and UA with cloudy urine, 2+ leukocyte esterase, 10- 30 WBC, > 30 RBC's, 0-5 epithelial cells, and negative bacteria. Chest xray was negative for acute findings. CT of the abd/pelvis wo con was read as "1. 1.8 cm calculus within the left renal pelvis results in mild hydronephrosis. 2. No bowel obstruction or bowel wall thickening. 3. Prior granulomatous disease. 4. Age-indeterminate L1 compression deformity without retropulsion, likely subacute. 5. Additional findings as above.". Prior to admission the patient was given 2L NSS and a dose of cefepime. At the time of the exam the patient was sitting in bed in no acute distress with her Step son and his sitting bedside. History was obtained from family due to the patient's baseline mental status. Her step son explains that the patient has a long history of kidney stones and UTI's. She recently completed a course of antibiotics for UTI. Today she was reportedly more lethargic, had a fever, of 101F, and was complaining of abdominal pain. The patient currently denies any pain and appears clinically stable. We discussed code status, family brought the patient's living will. She is a DNR/DNI and her step son makes medical decisions for her. Please refer to Dr. Philippe's attestation for any changes to the treatment plan Principal Diagnosis UTI Discharge Exam General: In no acute distress, stated age, well-nourished, non-toxic appearing HEENT: Normocephalic, atraumatic Chest/Pulm: No respiratory distress, symmetrical chest expansion, clear breath sounds throughout Cardiac: RR Abdomen: Negative for ascites and bruising, normoactive bowel sounds, soft, non- tender to palpation throughout : Negative CVA tenderness BL Extremities: Radial, dorsalis pedis, and posterior tibial pulses are intact and symmetrical, no edema noted in the BL LE's Skin: Patient with thickened and dark patch of skin on the frontal scalp from chronic scratching, no signs of skin breakdown or infection Neuro: Alert and oriented to person, place, month, year, and president, no focal defects, CN II-XII tested and intact, finger to nose test negative, no tremors noted Psych: No acute distress, pleasantly confused, calm and cooperative during the exam Discharge Data Allergies Allergy/AdvReac Type Severity Reaction Status Date / Time No Known Allergies Allergy Unverified 06/10/23 13:37 Consultations 06/10/23 16:44 ED Decision to Admit Stat 06/10/23 17:45 Consult Urology Routine 06/14/23 08:11 Consult Cardiology Routine Procedures Performed Operation Date: 06/11/23 17:10 Actual Procedures p Cystoscopy, Left Retrograde Pyelogram, Left Ureteral Stent Placement(Left) - Ortiz Heredia MD Ordered Studies 06/10/23 10:46 CT abd pelvis wo con Stat 06/11/23 13:00 FL retrograde includes kub Routine Hospital Course (1) Urinary tract infection: -Admit to med/tele - -S/P cystoscopy, left retrograde pyelogram, left ureteral stent placement on 06/11 -Currently hemodynamically stable and asymptomatic -Patient has a history of recurrent UTI and kidney stones No longer febrile PT/OT evals completed DIscharge to SNF cultures negative: will continue short course of antibiotics. (2) Acute hypotension: -Likely a combination of dehydration, acute infection, and being given her am dose of lisinopril per the MAR sent with her -Currently stable and clinically well-appearing since receiving 2L NSS and dose of cefepime in the ED -No leukocytosis, lactate WNL, not on chronic steroids -improved BP: resume lisinopril (3) Kidney stone on left side: -1.8 cm calculus within the left renal pelvis results in mild hydronephrosis on CT of the abd/pelvis today -Cr is at 1.67, unsure of baseline -Patient is making urine with stable electrolytes -treated with IV fluids, will also start daily flomax -Urology consulted (4) Dementia: -Continue Namenda and prn HS ativan -Fall/aspiration precautions Total Time Total Time Spent Total Time Spent (In Minutes): 32 Discharge Plan Discharge Items Patient Disposition: Personal Retirement Reason For Visit: UTI, LEFT KIDNEY STONE Discharge Diagnosis: UTI, left kidney stone Activity: Resume your previous activity Non-emergency contact: Primary Care Provider Call non-emergency contact if: you have any medication questions Follow-up/Referrals: Chuy Mcdonald [Primary Care Provider] - Diet: Heart Healthy Diet Comment: minced and moist Addtl Attending Provider Instructions: Will recommend we continue antibiotics for 3 more days. schedule outpatient follow-up to discuss stone treatment Pending Studies at Discharge: No Stand-Alone Forms: Thumb Reading, Smoking Cessation Skilled Items Patient informed of condition?: Yes DNR: No Discharge Level of Care: Other Communicable Disease: Yes Discharge Prognosis: Stable Lines: None Urinary Catheter: No Medications and DC Order Prescriptions: New cefadroxil 1 gram tablet 1,000 mg PO BID Qty: 6 0RF Rx Instructions: Start first dose tomorrow on 06/15/23 Continued donepezil 10 mg Tablet 10 mg PO HS pantoprazole 40 mg Tablet,Delayed Release (Dr/Ec) 40 mg PO DAILY lisinopril 5 mg Tablet 5 mg PO DAILY escitalopram oxalate 10 mg Tablet 10 mg PO DAILY melatonin 5 mg Tablet 5 mg PO HS Eliquis 5 mg Tablet 5 mg PO BID cholecalciferol (vitamin D3) [Vitamin D3] 125 mcg (5,000 unit) Tablet 125 mcg PO DAILY calcium carbonate [Calcium 600] 600 mg calcium (1,500 mg) Tablet 600 mg PO DAILY potassium chloride 20 mEq packet 20 meq PO BID lorazepam 0.5 mg tablet See Rx Instructions .ROUTE .COMPLEX Rx Instructions: Take 0.5mg by mouth in the morning and 1mg by mouth at bedtime if needed Discharge Orders: Discharge Order (Routine); Ordered 06/14/23 Ordered By: Jc Medina Admission Data Admit Date/Time: 06/10/23 17:41 Attending Provider: Jc Medina Admit Provider: Adi Philippe Primary Care Provider: Chuy Mcdonald Other Providers: Adi Philippe Other Interventions: Discharge Summary Assessment (RN) Last Done: 06/14/23 12:59 Coding Level of Care Code 03397 INP/OBS DISCH >30 MIN Diagnoses Urinary tract infection N39.0; R31.9 Hematuria presence: with hematuria Urinary tract infection type: site unspecified Acute hypotension I95.9 Kidney stone on left side N20.0 Dementia F03.90
== END 2023-06-14 14:03 | disposition home or self-care (01) | DRG 661 ==
LOC: ED 10:30 → EDINP 17:41 → SUATTDRO 17:41 → EDINP 06-11 12:53 → 2W 06-11 15:06
DX: F02.80 Dementia in other diseases classified elsewhere, unspecified severity, without behavioral disturbance, psychotic disturbance, mood disturbance, and anxiety; G30.9 Alzheimer's disease, unspecified; Z79.01 Long term (current) use of anticoagulants; E86.0 Dehydration; N13.2 Hydronephrosis with renal and ureteral calculous obstruction; I95.89 Other hypotension

== ENCOUNTER 2023-08-10 09:04 | Inpatient (IN) ==
--- NOTE | 2023-08-10 09:55 | Emergency Department Note ---
Impression & Plan SIRS (systemic inflammatory response syndrome), Dementia, Fever, Leukocytosis ED Provider Note NAME: MAX BEASLEY AGE: 83 SEX: F : 1940 ARRIVES VIA: Ambulance INFORMANT: Patient ED PROVIDER(S): Daniel Godwin DO CHIEF COMPLAINT: hematuria HPI: Patient is a 83-year-old female who presents to the ER from [facility] as she has been unable to get up and get around for the past 2 days. She was placed on Bactrim prophylactically on the which she has been taking as she is going to have her stent removed. She was having fevers today of 101. She was given Tylenol and sent in. Patient denies all complaints as she is demented. Angelia gives the entire history who is a nurse at her facility/hemodialysis rn. She notes nothing else is new with exception of her weakness and fever. ADDITIONAL HISTORY OBTAINED: Per HPI Chronic Medical/Social Conditions Affecting Care: Per HPI PAST MEDICAL HISTORY:See Below PAST SURGICAL HISTORY:See Below FAMILY HISTORY:See Below SOCIAL HISTORY:See Below HOME MEDICATIONS:See Below ALLERGIES:See Below VITALS:See Below PHYSICAL EXAMINATION: GENERAL: Sitting up in bed, alert, well appearing, well nourished, no distress, non-toxic EYE EXAM: normal conjunctiva. OROPHARYNX: no exudate, no erythema, lips, buccal mucosa, and tongue normal and mucous membranes are moist NECK: supple, no nuchal rigidity, no adenopathy, non-tender LUNGS: Clear to auscultation. Normal chest wall mechanics HEART: no murmurs, S1 normal and S2 normal ABDOMEN: abdomen soft, non-tender, normo-active bowel sounds, no masses, no rebound or guarding. UPPER EXTREMITIES: upper extremities are grossly normal. LOWER EXTREMITIES: No pitting edema. NEURO EXAM: Awake alert oriented to person but not place or year moving all extremities nonfocal. MEDICAL DECISION MAKING: Patient is an 83-year-old female who presents ER for above-stated complaint. IV was established blood work was obtained. Labs show leukocytosis 11,000. No significant anemia. BMP with creatinine 1.5. Glucose was unremarkable. Lactate was normal. No transaminitis. Pro-Albino was normal. UA with leuks whites and hematuria. CT abdomen pelvis shows no new acute pathology. Patient was given IV antibiotics. She given IV fluids. She was updated bedside. Additional history was obtained from Angelia who is her hemodialysis rn at the facility as described above. Patient was admitted and discussed with the hospitalist for further evaluation management treatment. Consults/Care Managements Discussions: Per MDM Triage Nursing notes reviewed. Limited review of prior medical records performed Vital Signs: reviewed and remarkable for no significant abnormalities Differential diagnosis: Differential diagnosis includes etiologies such as sepsis, UTI, pneumonia, metabolic, electrolyte abnormalities, cardiac sources, intracerebral event, toxicologic, neurological, as well as others were entertained. ER treatment provided: See below Diagnostics interpreted by me include EKG and cardiac monitoring as listed below: -Cardiac Monitoring: An order was placed for continuous cardiac monitoring. The monitor shows a rate of 80 with sinus rhythm. -ECG: none -Laboratory studies:Interpreted by me as stated above in MDM and shown below. Imaging studies: Xrays: As interpreted by me:none CTs show: CT abdomen pelvis per my preliminary interpretation showed a ureteral stent CT abdomen pelvis per radiology as described above Procedures:none Critical Care: None Past Med/Surg History Medical History (Updated 08/10/23 @ 13:55 by Daniel Godwin DO) Sepsis due to UTI per 07/19/23 urology records (admitted to [facility])- discharged on abx HTN (hypertension) Atrial fibrillation On Eliquis per records On anticoagulant therapy a fib reason for Eliquis per records Poor historian pt's step son (POA) provided hx GERD (gastroesophageal reflux disease) Kidney stones Anxiety Dementia Surgical History S/P ureteral stent placement History of cystoscopy History of appendectomy History of open reduction and internal fixation (ORIF) procedure Social History Smoking Status: Unknown if ever smoked Second Hand Exposure: No; Do You Dip or Chew Tobacco: No; Hx Alcohol Use: No Hx Substance Use: No Preferred Language: Chadian Communication Ability: Effective Lens Coating Technician Required: No Beliefs That Will Affect Care: None Current Living Situation: Group Home Current Living Situation Comment: [facility] Feels Safe at Home: Yes Assistive Devices: Denture - Upper, Denture - Lower, Glasses and Walker Allergies Allergies Allergy/AdvReac Type Severity Reaction Status Date / Time No Known Allergies Allergy Unverified 08/10/23 12:54 Home Meds Home Medications Medication Instructions Recorded Confirmed apixaban 5 mg tablet (Eliquis) 5 mg PO BID 04/05/23 08/10/23 cholecalciferol (vitamin D3) 125 125 mcg PO QAM 04/05/23 08/10/23 mcg (5,000 unit) tablet (Vitamin D3) donepezil 10 mg tablet 10 mg PO HS 04/05/23 08/10/23 escitalopram oxalate 10 mg tablet 10 mg PO QAM 04/05/23 08/10/23 melatonin 5 mg tablet 5 mg PO HS 04/05/23 08/10/23 pantoprazole 40 mg tablet,delayed 40 mg PO QAM 04/05/23 08/10/23 release lorazepam 0.5 mg tablet See Rx Instructions .Route .COMPLEX 06/10/23 08/10/23 potassium chloride 20 mEq oral 20 meq PO BID 06/10/23 08/10/23 packet acetaminophen 325 mg tablet 650 mg PO Q6H PRN Pain 08/10/23 08/10/23 calcium carbonate 600 mg-vitamin 1 tab PO DAILY 08/10/23 08/10/23 D3 10 mcg (400 unit) tablet (Calcium 600 + D(3)) sulfamethoxazole 800 1 tab PO BID 08/10/23 08/10/23 mg-trimethoprim 160 mg tablet Results & Data (ED) Vital Signs Vital Signs - 24 hr 08/10/23 09:13 08/10/23 09:13 08/10/23 09:27 Temperature 36.8 C Temperature Source Oral Pulse Rate 75 76 Pulse Rate [Apical] Pulse Rate from SpO2 Sensor Pulse Rhythm [Apical] Pulse Strength [Apical] Respiratory Rate 18 Respiratory Effort / Characteristics Respiratory Depth Respiratory Pattern Blood Pressure 108/61 Blood Pressure [Left Arm] Blood Pressure Mean 76 Blood Pressure Mean [Left Arm] Pulse Oximetry 94 95 Oxygen Delivery Method Room Air Room Air Sepsis Recent Fever Within 48 Hours Yes Sepsis New/Unexplained Change in Mental Status No Sepsis Action Taken by Nursing No Action Required 08/10/23 10:57 08/10/23 11:00 08/10/23 11:00 Temperature 36.8 C Temperature Source Oral Pulse Rate 64 Pulse Rate [Apical] 75 Pulse Rate from SpO2 Sensor 64 Pulse Rhythm [Apical] Regular Pulse Strength [Apical] Normal Respiratory Rate 18 20 Respiratory Effort / Characteristics Respiratory Depth Respiratory Pattern Blood Pressure 89/51 L Blood Pressure [Left Arm] 89/51 L Blood Pressure Mean 71 Blood Pressure Mean [Left Arm] 63 Pulse Oximetry 95 94 Oxygen Delivery Method Room Air Sepsis Recent Fever Within 48 Hours Sepsis New/Unexplained Change in Mental Status Sepsis Action Taken by Nursing 08/10/23 12:26 08/10/23 12:26 08/10/23 12:30 Temperature Temperature Source Pulse Rate 71 Pulse Rate [Apical] 70 Pulse Rate from SpO2 Sensor 70 Pulse Rhythm [Apical] Regular Pulse Strength [Apical] Normal Respiratory Rate 27 H 16 Respiratory Effort / Characteristics Non-Labored Spontaneous Respiratory Depth Normal Respiratory Pattern Regular Blood Pressure 104/51 L Blood Pressure [Left Arm] 104/51 L Blood Pressure Mean 69 Blood Pressure Mean [Left Arm] 68 Pulse Oximetry 94 94 Oxygen Delivery Method Room Air Sepsis Recent Fever Within 48 Hours Sepsis New/Unexplained Change in Mental Status Sepsis Action Taken by Nursing Laboratory Data 08/10/23 09:50 08/10/23 09:50 Lab Results 08/10/23 08/10/23 08/10/23 Range/Units 09:50 10:14 10:30 WBC 11.28 H (4.8-10.8) K/ul RBC 4.62 (4.20-5.40) M/uL Hgb 13.4 (12.0-16.0) g/dl Hct 41.5 (37.0-47.0) % MCV 89.8 (80.0-100.0) fL MCH 29.0 (25.0-34.0) pg MCHC 32.3 (32.0-36.0) g/dL RDW Std Deviation 44.4 (36.4-46.3) fL RDW Coeff of Estefani 13.7 (11.5-14.5) % Plt Count 262 (130-400) K/uL MPV 10.1 (9.4-12.4) fL Immature Gran % (Auto) 2.6 % Neut % (Auto) 82.3 % Lymph % (Auto) 7.9 % [place] % (Auto) 5.5 % Eos % (Auto) 1.2 % Baso % (Auto) 0.5 % Neut # (Auto) 9.29 H (1.40-6.50) K/uL Lymph # (Auto) 0.89 L (1.20-3.40) K/uL [place] # (Auto) 0.62 H (0.11-0.59) K/uL Eos # (Auto) 0.13 (0.00-0.50) K/uL Baso # (Auto) 0.06 (0.00-0.20) K/uL Immature Gran # (Auto) 0.29 H (0.01-0.20) K/uL Sodium 138 (136-145) mmol/L Potassium 4.5 (3.5-5.1) mmol/L Chloride 105 (98-107) mmol/L Carbon Dioxide 26 (21-32) mmol/L Anion Gap 7 (3-11) BUN 19 (6-23) mg/dl Creatinine 1.54 H (0.6-1.2) mg/dl Est Cr Clr Drug Dosing 23.1 ml/min Est GFR ( Amer) 35.3 ml/min Est GFR (Non-Af Amer) 30.5 ml/min BUN/Creatinine Ratio 12.3 (10-20) Glucose 100 H (70-99(Fasting)) mg/dl Lactate 1.4 (0.4-2.0) mmol/L Calcium 8.9 (8.6-10.3) mg/dl Total Bilirubin 0.5 (0.2-1.0) mg/dl AST 12 L (13-39) U/L ALT 6 L (7-52) U/L Alkaline Phosphatase 52 (34-104) U/L Total Protein 6.3 (6.0-8.3) gm/dl Albumin 3.2 L (3.4-5.0) gm/dl Globulin 3.1 (2.5-4.0) gm/dl Albumin/Globulin Ratio 1.0 (0.9-2) Lipase 82 (11-82) U/L Procalcitonin 0.24 (0-0.5) ng/ml Urine Color Dark Yellow Urine Appearance Cloudy A (Clear) Urine pH 5.5 (4.5-7.5) Ur Specific Cornish 1.018 (1.000-1.030) Urine Protein 1+ H (Negative) Urine Glucose (UA) Negative (Negative) Urine Ketones Trace H (Negative) Urine Blood 3+ H (Negative) Urine Nitrite Negative (Negative) Urine Bilirubin Negative (Negative) Urine Urobilinogen Negative (Negative) Ur Leukocyte Esterase 3+ H (Negative) Urine WBC (Auto) >30 H (0-5) /hpf Urine RBC (Auto) >30 H (0-4) /hpf U Hyaline Cast (Auto) 1-5 (0-5) /lpf U Epithel Cells (Auto) 0-5 (0-5) /lpf Urine Bacteria (Auto) Negative (Negative) Urine Yeast Not Reportable Administered Medications Discontinued Medications Sodium Chloride (Nss) 1,000 mls @ 999 mls/hr IV .Q1H1M ONE Stop: 08/10/23 10:52 Last Infusion: 08/10/23 11:45 Dose: Infused Documented By: Admin: 08/10/23 10:36 Dose: 999 mls/hr Documented By: HIRAM Ceftriaxone Sodium (Rocephin) 2,000 mg in 50 mls @ 100 mls/hr IV NOW STA Stop: 08/10/23 10:25 Last Infusion: 08/10/23 11:08 Dose: Infused Documented By: Admin: 08/10/23 10:36 Dose: 100 mls/hr Documented By: HIRAM Sodium Chloride (Nss) 1,000 mls @ 999 mls/hr IV .Q1H1M ONE Stop: 08/10/23 13:17 Last Infusion: 08/10/23 13:39 Dose: Infused Documented By: Admin: 08/10/23 12:30 Dose: 999 mls/hr Documented By: RD Ioversol (Optiray 320 500ml) 78 ml IV ONCE ONE Stop: 08/10/23 11:29 Last Admin: 08/10/23 11:29 Dose: 78 ml Documented By: LOTTIE Imaging Data Radiologist's Impression: Abdomen/Pelvis CT 08/10/23 09:[address] WITH IV CONTRAST CT DOSE: 964.29 mGy.cm HISTORY: Acute hematuria with left ureteral stent Ureteral stent with hematuria TECHNIQUE: Multiaxial CT images of the abdomen and pelvis were performed following the IV administration of 78 cc of Optiray, A dose lowering technique was utilized adhering to the principles of ALARA. COMPARISON STUDY: 06/10/2023 FINDINGS: Calcified hilar lymph nodes, pulmonary, splenic and hepatic granulomata. Coronary artery calcifications. Mild bibasilar bronchial wall thickening. There are a few low suspicion solid pulmonary nodules again noted within the lung bases measuring up to 3 mm. No free air. Unremarkable pancreas, adrenal glands and gallbladder. The liver is otherwise unremarkable. Mild nonspecific bilateral perinephric stranding. 3.1 cm cyst of the posterior interpolar left kidney. 1.7 m calculus again noted within the left renal pelvis. There is mildly heterogeneous attenuation of the left kidney. There are a few additional punctate stone fragments noted within the mid inferior pole left kidney without obstruction. A left ureteral stent is in place. Mild dilation of the left ureter without significant hydronephrosis. Fibroid uterus. Bladder wall thickening with partial distention and mild periventricular stranding. Indeterminate likely benign 2.4 cm left adnexal cystic focus. Atherosclerosis of the aorta. No lymphadenopathy. Small hiatal hernia. No bowel obstruction. Mild/moderate rectal fecal retention. Colonic diverticulosis. No CT evidence of acute appendicitis. Unremarkable soft tissues. No acute fracture. Degenerative changes of the spine, pelvis and hips. Moderate L1 superior endplate compression deformity without retropulsion. Subacute to chronic nondisplaced fracture at S3-S4 anteriorly. IMPRESSION: 1. Left nephrolithiasis with persistent 1.8 cm calculus within the left renal pelvis. There is mild pelviectasis and mild hydroureter with satisfactory positioning of a left ureteral stent. 2. Slightly delayed left-sided nephrogram is noted in conjunction with moderate urinary bladder wall thickening. Correlate with urinalysis to exclude infection. 3. Incidental findings as above. ACT 112: Negative or not required by law. The above report was generated using voice recognition software. It may contain grammatical, syntax or spelling errors. Electronically signed by: Joseph Hernandez M.D. 08/10/2023 12:14 PM Discharge Plan Visit Data Chief Complaint: Kidney Stone Stated Complaint: kidney stone ED Provider: Daniel Godwin Discharge Problem: SIRS (systemic inflammatory response syndrome), Dementia, Fever, Leukocytosis Forms Stand Alone Forms: My [employer]ast Prescriptions Prescriptions: No Action donepezil 10 mg Tablet 10 mg PO HS pantoprazole 40 mg Tablet,Delayed Release (Dr/Ec) 40 mg PO QAM escitalopram oxalate 10 mg Tablet 10 mg PO QAM melatonin 5 mg Tablet 5 mg PO HS Eliquis 5 mg Tablet 5 mg PO BID cholecalciferol (vitamin D3) [Vitamin D3] 125 mcg (5,000 unit) Tablet 125 mcg PO QAM potassium chloride 20 mEq packet 20 meq PO BID lorazepam 0.5 mg tablet See Rx Instructions .ROUTE .COMPLEX Rx Instructions: Take 0.5mg by mouth in the morning and 0.5mg - 1mg by mouth at bedtime as needed for increased anxiety acetaminophen 325 mg Tablet 650 mg PO Q6H MDD 3g/24hr PRN (Reason: Pain) calcium carbonate-vitamin D3 [Calcium 600 + D(3)] 600 mg-10 mcg (400 unit) Tablet 1 tab PO DAILY sulfamethoxazole-trimethoprim 800-160 mg tablet 1 tab PO BID Rx Instructions: Start Date 08/08/23 - End Date 08/14/23 Referrals Referrals: Chuy Mcdonald [Primary Care Provider] - Discharge Problem: Dementia Qualifiers: Dementia type: unspecified type Dementia severity: unspecified severity D ementia behavioral or psychological symptom: unspecified whether behavioral, psychotic, or mood disturbance or anxiety Qualified Code(s): F03.90 - Unspecified dementia, unspecified severity, without behavioral disturbance, psychotic disturbance, mood disturbance, and anxiety Fever Qualifiers: Fever type: unspecified Qualified Code(s): R50.9 - Fever, unspecified Leukocytosis Qualifiers: Leukocytosis type: unspecified Qualified Code(s): D72.829 - Elevated white blood cell count, unspecified
[2023-08-10 10:07] LABS: Basophils # (auto) 0.06 K/uL (0.00-0.20); Basophils % (auto) 0.5 %; Eosinophils # (auto) 0.13 K/uL (0.00-0.50); Eosinophils % (auto) 1.2 %; Hematocrit (blood only) 41.5 % (37.0-47.0); Hemoglobin 13.4 g/dl (12.0-16.0); Immature Granulocytes # (auto) 0.29 K/uL (0.01-0.20); Immature Granulocytes % (auto) 2.6 %; Lymphocytes # (auto) 0.89 K/uL (1.20-3.40); Lymphocytes % (auto) 7.9 %; Mean Corpuscular Hgb Conc 32.3 g/dL (32.0-36.0); Mean Corpuscular Volume 89.8 fL (80.0-100.0); Mean Platelet Volume 10.1 fL (9.4-12.4); Monocytes # (auto) 0.62 K/uL (0.11-0.59); Monocytes % (auto) 5.5 %; Neutrophils # (auto) 9.29 K/uL (1.40-6.50); Neutrophils % (auto) 82.3 %; Platelet Count 262 K/uL (130-400); RDW Coefficient of Variation 13.7 % (11.5-14.5); RDW Standard Deviation 44.4 fL (36.4-46.3); Red Blood Count 4.62 M/uL (4.20-5.40); White Blood Count 11.28 K/ul (4.8-10.8)
[2023-08-10 10:24] LABS: Albumin Level 3.2 gm/dl (3.4-5.0); BUN Creatinine Ratio 12.3 (10-20); Bilirubin,Total 0.5 mg/dl (0.2-1.0); Calcium 8.9 mg/dl (8.6-10.3); Creatinine Clr Calc Pharmacy 23.1 ml/min; Est GFR (African American) 35.3 ml/min; Est GFR (Non-African American) 30.5 ml/min; Globulin 3.1 gm/dl (2.5-4.0); Potassium 4.5 mmol/L (3.5-5.1); Total Protein 6.3 gm/dl (6.0-8.3)
[2023-08-10] MEDS: SODIUM CHLORIDE 0.9% 1,000 ML IV ONE ×2 (10:36→12:30)
[2023-08-10] MEDS: cefTRIAXone SODIUM 2,000 MG/50 ML BAG IV STA (10:36)
[2023-08-10 10:48] LABS: Appearance Urine Cloudy (Clear); Bacteria Urine Automated Negative (Negative); Bilirubin Urine Negative (Negative); Blood Urine 3+ (Negative); Color Urine Dark Yellow; Epithelial Cell Urine Auto 0-5 /lpf (0-5); Glucose Urine UA Negative (Negative); Ketones Urine Trace (Negative); Leukocyte Esterase Urine 3+ (Negative); Nitrite Urine Negative (Negative); Protein Urine 1+ (Negative); Specific Gravity Urine 1.018 (1.000-1.030); Urobilinogen Urine Negative (Negative); WBC Urine Automated >30 /hpf (0-5); pH Urine 5.5 (4.5-7.5)
[2023-08-10 11:01] LABS: RBC Urine Automated >30 /hpf (0-4)
[2023-08-10] MEDS: OPTIRAY 320 500ml IV ONE (11:29)
--- NOTE | 2023-08-10 12:16 | CT Scan Report ---
ABDOMEN AND PELVIS CT WITH IV CONTRAST CT DOSE: 964.29 mGy.cm HISTORY: Acute hematuria with left ureteral stent Ureteral stent with hematuria TECHNIQUE: Multiaxial CT images of the abdomen and pelvis were performed following the IV administrat ion of 78 cc of Optiray, A dose lowering technique was utilized adhering to the principles of ALARA. COMPARISON STUDY: 06/10/2023 FINDINGS: Calcified hilar lymph nodes, pulmonary, splenic and hepatic granulomata. Coronary artery calcificatio ns. Mild bibasilar bronchial wall thickening. There are a few low suspicion solid pulmonary nodules a gain noted within the lung bases measuring up to 3 mm. No free air. Unremarkable pancreas, adrenal gl ands and gallbladder. The liver is otherwise unremarkable. Mild nonspecific bilateral perinephric stranding. 3.1 cm cyst of the posterior interpolar left kidney . 1.7 m calculus again noted within the left renal pelvis. There is mildly heterogeneous attenuation of the left kidney. There are a few additional punctate stone fragments noted within the mid inferior pole left kidney without obstruction. A left ureteral stent is in place. Mild dilation of the left u reter without significant hydronephrosis. Fibroid uterus. Bladder wall thickening with partial disten tion and mild periventricular stranding. Indeterminate likely benign 2.4 cm left adnexal cystic focus . Atherosclerosis of the aorta. No lymphadenopathy. Small hiatal hernia. No bowel obstruction. Mild/moderate rectal fecal retention. Colonic diverticulos is. No CT evidence of acute appendicitis. Unremarkable soft tissues. No acute fracture. Degenerative changes of the spine, pelvis and hips. Moderate L1 superior endplate compression deformity without re tropulsion. Subacute to chronic nondisplaced fracture at S3-S4 anteriorly. IMPRESSION: 1. Left nephrolithiasis with persistent 1.8 cm calculus within the left renal pelvis. There is mild p elviectasis and mild hydroureter with satisfactory positioning of a left ureteral stent. 2. Slightly delayed left-sided nephrogram is noted in conjunction with moderate urinary bladder wall thickening. Correlate with urinalysis to exclude infection. 3. Incidental findings as above. ACT 112: Negative or not required by law. The above report was generated using voice recognition software. It may contain grammatical, syntax o r spelling errors. Electronically signed by: Joseph Hernandez M.D. 08/10/2023 12:14 PM
--- NOTE | 2023-08-10 12:21 | History & Physical Report ---
Date of Service August 10, 2023 Assessment & Plan (1) Urinary tract infection: Plan: Weakness and fever of 101 F developed the evening of 08/09 at (patient is personal-intermediate) Leukocytosis at 11.28 on arrival UA positive on arrival CXR ordered, pending Abdomen/pelvic CT revealed a left nephrolithiasis with persistent 1.8 cm calculus within the L renal pelvis Hx of left ureteral stent placement with Dr. Heredia on 06/11/2023; patient was scheduled to have lithotripsy and stent removal on 08/11 Hx of UTI/Sepsis at [facility] from 07/07/2023- 07/13/2023; discharged on course of ciprofloxacin Hold Bactrim (prescribed by Teto on 07/30) Last urine culture on 07/28/2023 showed no identification/sensitivities Rocephin 2000 mg IV started in the ED Continue Rocephin 2000 mg IV q24h Urine culture ordered, pending Blood culture ordered, pending Urology consulted; okay to continue patient's Eliquis prior to stent removal; she can have a regular diet, as her stent removal will need to be rescheduled due to UTI Acetaminophen as needed for fever/pain A.m. CBC, BMP (2) Dementia: Plan: Patient is a poor historian at baseline Continue donepezil (3) MALINA (acute kidney injury): Plan: Avoid nephrotoxic agents Redose Eliquis 5.0 to 2.5 mg BID Follow a.m. BMP (4) Kidney stone on left side: Plan: 1.8cm stone Urology consulted (as above) (5) Anxiety: Plan: Continue escitalopram Continue lorazepam as needed; MAR from listed lorazepam use as 0.5 mg QAM and 0.5-1.0 mg QPM as needed, however unclear how much she has been taking daily; will schedule lorazepam 0.5 mg at bedtime as needed, which was done during last admission Monitor for benzodiazepine withdrawal; was not suggested based on prior admission (where she was on 0.5 mg PRN) (6) Atrial fibrillation: Plan: Continue Eliquis (7) GERD (gastroesophageal reflux disease): Plan: Continue pantoprazole (8) HTN (hypertension): Plan Disposition: Obs- Admit to [facility] telemetry Regular diet DNR/DNI VTE PPx: On Eliquis History of Present Illness Chief Complaint: Kidney stone Primary Care Provider: Chuy Morris 73-year-old female with PMH of Alzheimer's dementia, A-fib (on Eliquis), anxiety, HTN, OA, UTI, and left nephrolithiasis s/p left ureteral stent placement on 06/11/[address] Heredia. Patient arrived via EMS for 101 F fever and weakness that developed the evening of 08/09 at her personal intermediate, [facility]. Patient is a poor historian due to her underlying Alzheimer's dementia, and most of the history is provided by her son (Jc) at the bedside. Patient reportedly had a high fever last night, and could not use her walker for ambulation. She had similar symptoms prior to hospitalization at [facility] for UTI/sepsis in late June 2023. Recent [facility] hospitalization from 06/10/23 - 06/14/23 for obstructing 1.8 cm stone within the left renal pelvis; of note, the patient was scheduled for stent removal with Dr. Heredia tomorrow on 08/11. Patient's son also reports that she has been passing blood in her urine recently due to her stent. She took all of her morning medications, which is managed by [facility]'s; this includes Eliquis for A-fib. Patient is hypotensive at 89/51 at time of admission. Per review of [facility] urology H&P from 07/10/2023 (during patient's hospital stay for UTI/sepsis) she was admitted for fever up to 103 F and confusion from her senior living. Patient had a "urine culture done on 07/07 that grew E. coli sensitive to all"; "pansensitive". First set of blood cultures were believed to be contaminated; repeat blood cultures were negative. Patient remained on Rocephin throughout her hospitalization. Discharged on 07/13/2023 with a course of ciprofloxacin 500 mg p.o. twice daily x 7 days. ED course: Rocephin 2000 mg IV NSS 1000 mL IV x 2 Unable to obtain accurate ROS due to patient's underlying cognitive state. However, she denies any symptoms at this time. Allergies Allergy/AdvReac Type Severity Reaction Status Date / Time No Known Allergies Allergy Unverified 08/10/23 12:54 Home Medications Medication Instructions Recorded Confirmed Type cholecalciferol (vitamin D3) 125 125 mcg PO QAM 04/05/23 08/10/23 History mcg (5,000 unit) tablet (Vitamin D3) donepezil 10 mg tablet 10 mg PO HS 04/05/23 08/10/23 History escitalopram oxalate 10 mg tablet 10 mg PO QAM 04/05/23 08/10/23 History melatonin 5 mg tablet 5 mg PO HS 04/05/23 08/10/23 History pantoprazole 40 mg tablet,delayed 40 mg PO QAM 04/05/23 08/10/23 History release lorazepam 0.5 mg tablet 1 mg PO HS 06/10/23 08/11/23 History potassium chloride 20 mEq oral 20 meq PO BID 06/10/23 08/10/23 History packet acetaminophen 325 mg tablet 650 mg PO Q6H PRN Pain 08/10/23 08/10/23 History calcium carbonate 600 mg-vitamin 1 tab PO DAILY 08/10/23 08/10/23 History D3 10 mcg (400 unit) tablet (Calcium 600 + D(3)) sulfamethoxazole 800 1 tab PO BID 08/10/23 08/10/23 History mg-trimethoprim 160 mg tablet amoxicillin 500 mg-potassium 1 tab PO BID 7 days #14 tabs 08/15/23 Rx clavulanate 125 mg tablet apixaban 2.5 mg tablet (Eliquis) 2.5 mg PO BID 1 month #60 tabs 08/15/23 Rx Past Med/Surg History Medical History Sepsis due to UTI per 07/19/23 urology records (admitted to [facility])- discharged on abx HTN (hypertension) Atrial fibrillation On Eliquis per records On anticoagulant therapy a fib reason for Eliquis per records Poor historian pt's step son (POA) provided hx GERD (gastroesophageal reflux disease) Kidney stones Anxiety Dementia Surgical History S/P ureteral stent placement History of cystoscopy History of appendectomy History of open reduction and internal fixation (ORIF) procedure Social History Smoking Status: Never smoker Second Hand Exposure: No; Do You Dip or Chew Tobacco: No; Hx Alcohol Use: No Hx Substance Use: No Preferred Language: [place] Citizen Communication Ability: Effective Apartment Community Assistant Manager Required: No Beliefs That Will Affect Care: None Current Living Situation: Group Home Current Living Situation Comment: [facility] Feels Safe at Home: Yes Assistive Devices: Walker Review of Systems Review of Systems: See HPI above Physical Exam Physical Exam: General: no acute distress; pleasant affect; non-toxic appearing; well- nourished; cooperative HEENT: normocephalic, atraumatic; no scleral icterus; PERRLA w/ EOMs intact; moist mucus membrane; vision and hearing grossly intact Neck: supple; no lymphadenopathy; trachea midline Skin: warm, dry without signs of tenting; no cyanosis; no rashes, bruising, lesions, or erythema noted CV: chest wall NTP; RRR; S1/S2 normal; no murmurs/rubs/gallops; pulses intact and symmetric at radial, DP, and PT Lungs: no acute respiratory distress; symmetrical chest wall expansion; clear breath sounds across all lung luke w/o adventitious sounds; no wheezing ABD: Soft, NTP; no suprapubic tenderness on palpation; BS present; no rebound/guarding; no ascites; no distention; negative CVA tenderness MSK: no tics or fasciculations; no edema noted in the LEs b/l, nonerythematous Neuro: Oriented to name//month, but not location; fluent speech; no focal deficits; sensation intact in the LEs b/l Results & Data Results & Data Vital Signs (Past 12 Hours) Vital Signs Temp Pulse Pulse Resp BP BP Pulse Ox 08/10/23 10:57 36.8 C 75 18 89/51 L 95 08/10/23 09:27 76 08/10/23 09:13 95 08/10/23 09:13 36.8 C 75 18 108/61 94 O2 Del Method 08/10/23 10:57 Room Air 08/10/23 09:27 08/10/23 09:13 Room Air 08/10/23 09:13 Room Air Laboratory Results Abnormal lab results 08/10/23 08/10/23 Range/Units 09:50 10:30 WBC 11.28 H (4.8-10.8) K/ul Neut # (Auto) 9.29 H (1.40-6.50) K/uL Lymph # (Auto) 0.89 L (1.20-3.40) K/uL George # (Auto) 0.62 H (0.11-0.59) K/uL Immature Gran # (Auto) 0.29 H (0.01-0.20) K/uL Creatinine 1.54 H (0.6-1.2) mg/dl Glucose 100 H (70-99(Fasting)) mg/dl AST 12 L (13-39) U/L ALT 6 L (7-52) U/L Albumin 3.2 L (3.4-5.0) gm/dl Urine Appearance Cloudy A (Clear) Urine Protein 1+ H (Negative) Urine Ketones Trace H (Negative) Urine Blood 3+ H (Negative) Ur Leukocyte Esterase 3+ H (Negative) Urine WBC (Auto) >30 H (0-5) /hpf Urine RBC (Auto) >30 H (0-4) /hpf Diagnostic Findings Abdomen/Pelvis CT 08/10/23 09:[address] WITH IV CONTRAST CT DOSE: 964.29 mGy.cm HISTORY: Acute hematuria with left ureteral stent Ureteral stent with hematuria TECHNIQUE: Multiaxial CT images of the abdomen and pelvis were performed following the IV administration of 78 cc of Optiray, A dose lowering technique was utilized adhering to the principles of ALARA. COMPARISON STUDY: 06/10/2023 FINDINGS: Calcified hilar lymph nodes, pulmonary, splenic and hepatic granulomata. Coronary artery calcifications. Mild bibasilar bronchial wall thickening. There are a few low suspicion solid pulmonary nodules again noted within the lung bases measuring up to 3 mm. No free air. Unremarkable pancreas, adrenal glands and gallbladder. The liver is otherwise unremarkable. Mild nonspecific bilateral perinephric stranding. 3.1 cm cyst of the posterior interpolar left kidney. 1.7 m calculus again noted within the left renal pelvis. There is mildly heterogeneous attenuation of the left kidney. There are a few additional punctate stone fragments noted within the mid inferior pole left kidney without obstruction. A left ureteral stent is in place. Mild dilation of the left ureter without significant hydronephrosis. Fibroid uterus. Bladder wall thickening with partial distention and mild periventricular stranding. Indeterminate likely benign 2.4 cm left adnexal cystic focus. Atherosclerosis of the aorta. No lymphadenopathy. Small hiatal hernia. No bowel obstruction. Mild/moderate rectal fecal retention. Colonic diverticulosis. No CT evidence of acute appendicitis. Unremarkable soft tissues. No acute fracture. Degenerative changes of the spine, pelvis and hips. Moderate L1 superior endplate compression deformity without retropulsion. Subacute to chronic nondisplaced fracture at S3-S4 anteriorly. IMPRESSION: 1. Left nephrolithiasis with persistent 1.8 cm calculus within the left renal pelvis. There is mild pelviectasis and mild hydroureter with satisfactory positioning of a left ureteral stent. 2. Slightly delayed left-sided nephrogram is noted in conjunction with moderate urinary bladder wall thickening. Correlate with urinalysis to exclude infection. 3. Incidental findings as above. ACT 112: Negative or not required by law. The above report was generated using voice recognition software. It may contain grammatical, syntax or spelling errors. Electronically signed by: Joseph Hernandez M.D. 08/10/2023 12:14 PM Code Status & VTE Plan Code Status DNR/DNI VTE Prophylaxis Plan VTE Prophylaxis will be ordered: Yes Supervising Physician Co-Signing Physician Notes I personally saw and examined the patient. I independently reviewed the labs, EKG, imaging, problem list, medication list, past medical history and family history. I verified all fox points and agree with Derek Montes PA-C with the following exceptions and/or additions: 83 year old female presents to the ER with fever and generalized weakness. Unable to get any history from the patient due to dementia. O/E HS RRR, no murmurs, Chest CTAB. Abdo SNT, no CVA tenderness A/P Infected stone with UTI - IV ceftriaxone, urology consulted for stent placement. Follow up blood and urine cultures. MALINA - suspect from stone, IV fluids PG Care Time/CCT Total # of Minutes Spent Total Time Spent with Patient: Total time spent is greater than 50% in coordination of care (as documented) at patient's floor/unit and/or counseling patient: Coding [place] [address] INT INP/OBS CARE 2/55MIN Patient Type Established Medical Decision Making Moderate Complexity Diagnoses Urinary tract infection N39.0; R31.9 Hematuria presence: with hematuria Urinary tract infection type: site unspecified Dementia F03.90 MALINA (acute kidney injury) N17.9 Kidney stone on left side N20.0 Anxiety F41.9 Atrial fibrillation I48.91 GERD (gastroesophageal reflux disease) K21.9 HTN (hypertension) I10 (1) Urinary tract infection Hematuria presence: with hematuria Urinary tract infection type: site unspecified Qualified Code(s): N39.0 - Urinary tract infection, site not specified; R31.9 - Hematuria, unspecified
--- NOTE | 2023-08-10 14:34 | XRay Report ---
XR chest 1V portable HISTORY: Acute onset leukocytosis / fever; pulm source r/o COMPARISON: Chest 06/10/2023. FINDINGS: No pneumothorax. No pleural effusions. The cardiac silhouette remains mildly enlarged. Ther e are calcified mediastinal lymph nodes again noted. Cervical spinal fusion hardware. No focal lung c onsolidations to suggest a pneumonia. No evidence for pulmonary edema. Mild interstitial thickening p ersists. This is likely chronic. Slightly rotated study. No acute fractures identified. IMPRESSION: No significant change compared to the prior study. No acute process. ACT 112: Negative or not required by law. Electronically signed by: Derek Braden M.D. 08/10/2023 2:32 PM
[2023-08-10] MEDS ORDERED: LORazepam 0.5 MG TAB PO PRN ×2 (16:53→20:04)
[2023-08-10] MEDS ORDERED: ACETAMINOPHEN 325 MG TAB PO PRN (16:53)
[2023-08-10] MEDS: MELATONIN 3 MG TAB PO SCH (21:07)
[2023-08-10] MEDS: POTASSIUM CHLORIDE PWD 20 MEQ PACK PO SCH (21:08)
[2023-08-10] MEDS: DONEPEZIL HCL 10 MG TAB PO SCH (21:08)
[2023-08-10] MEDS: APIXABAN 2.5 MG TAB PO SCH (21:08)
--- NOTE | 2023-08-11 08:36 | Urology Consultation ---
Date of Consultation August 11, 2023 Assessment & Plan (1) Kidney stone on left side: (2) Urinary tract infection: 83 yo/F with an obstructing 1.8 cm left renal pelvis stone s/p left ureteral stent admitted for weakness, fever and suspected UTI. She is afebrile and hemodynamically stable Today's labs showcreatinine 0.95, WBC 12.[address], [address] shows left stent in good position, left renal pelvis stone Urine culture prelim showing gram-negative bacilli Blood cultures pending Continue broad-spectrum antibiotics and narrow per sensitivity data when available No acute intervention at this time Scheduled outpatient surgery for stone treatment today has been canceled and will be rescheduled after acute infection has been treated Continue antibiotics and supportive care will sign off, contact our service with any additional questions or concerns History of Present Illness Reason for Consultation: UTI, stent removal, kidney stone Attending Physician: Claire Zepeda MD History of Present Illness This is an 83-year-old female previously hospitalized for an obstructing 1.8 cm left renal pelvis stone with concern for infection s/p left ureteral stent on 06/11/23 who presented to the emergency department on 08/10/2023 from her [facility] for evaluation of weakness and fever. She was on prophylactic Bactrim for pending stone treatment scheduled 08/11/23. On arrival, she was afebrile and hemodynamically stable. Labs showed mild leukocytosis of 11.28, creatinine 1.54, hemoglobin 13.4, lactate 1.4. Urinalysis showed 1+ protein, 3+ blood, 3+ leukocyte esterase, >30 WBC, >30 RBC, negative bacteria. CT abdomen pelvis showed left nephrolithiasis with 1.8 cm calculus within the left renal pelvis, mild pelviectasis and mild hydroureter, left ureteral stent in good position; slightly delayed left sided nephrogram and moderate urinary bladder wall thickening noted. She was admitted to the hospital medicine service for complicated UTI. ED course: IV fluids, ceftriaxone. Urology is consulted for ureteral stent, UTI, kidney stone. Patient is known to our service, follows with Dr. Heredia s/p left stent on 06/11. She was hospitalized at [facility] for UTI/sepsis at the end of June. She had planned procedure with left ureteroscopy, laser lithotripsy and stent exchange on 08/11/23. Patient seen and examined at bedside this morning. Family present. She is awake and resting in bed, no apparent distress. Denies flank pain or bother. She is voiding without difficulty. Intermittent hematuria. Denies nausea, vomiting, fever or chills at present. Allergies Allergy/AdvReac Type Severity Reaction Status Date / Time No Known Allergies Allergy Unverified 08/10/23 12:54 Home Medications Medication Instructions Recorded Confirmed Type apixaban 5 mg tablet (Eliquis) 5 mg PO BID 04/05/23 08/10/23 History cholecalciferol (vitamin D3) 125 125 mcg PO QAM 04/05/23 08/10/23 History mcg (5,000 unit) tablet (Vitamin D3) donepezil 10 mg tablet 10 mg PO HS 04/05/23 08/10/23 History escitalopram oxalate 10 mg tablet 10 mg PO QAM 04/05/23 08/10/23 History melatonin 5 mg tablet 5 mg PO HS 04/05/23 08/10/23 History pantoprazole 40 mg tablet,delayed 40 mg PO QAM 04/05/23 08/10/23 History release lorazepam 0.5 mg tablet See Rx Instructions .Route .COMPLEX 06/10/23 08/10/23 History potassium chloride 20 mEq oral 20 meq PO BID 06/10/23 08/10/23 History packet acetaminophen 325 mg tablet 650 mg PO Q6H PRN Pain 08/10/23 08/10/23 History calcium carbonate 600 mg-vitamin 1 tab PO DAILY 08/10/23 08/10/23 History D3 10 mcg (400 unit) tablet (Calcium 600 + D(3)) sulfamethoxazole 800 1 tab PO BID 08/10/23 08/10/23 History mg-trimethoprim 160 mg tablet Patient History Medical History Sepsis due to UTI per 07/19/23 urology records (admitted to [facility])- discharged on abx HTN (hypertension) Atrial fibrillation On Eliquis per records On anticoagulant therapy a fib reason for Eliquis per records Poor historian pt's step son (POA) provided hx GERD (gastroesophageal reflux disease) Kidney stones Anxiety Dementia Surgical History S/P ureteral stent placement History of cystoscopy History of appendectomy History of open reduction and internal fixation (ORIF) procedure Social History Smoking Status: Never smoker Second Hand Exposure: No; Do You Dip or Chew Tobacco: No; Hx Alcohol Use: No Hx Substance Use: No Preferred Language: Monegasque Communication Ability: Effective Book Publisher Required: No Beliefs That Will Affect Care: None Current Living Situation: Alf Current Living Situation Comment: [facility] Feels Safe at Home: Yes Assistive Devices: Denture - Upper, Denture - Lower, Glasses and Walker Review of Systems Review of Systems: All systems reviewed & are unremarkable except as noted in HPI & below Physical Exam Constitutional: well developed and well nourished; no acute distress Respiratory: normal respiratory effort; no respiratory distress and no labored breathing Cardiovascular: Extremities: no pedal edema Gastrointestinal (Abdomen): Inspection/Auscultation: abdomen normal to inspection Musculoskeletal: Head/Neck/Chest: normocephalic Neurologic: moves all extremities and awake Psychiatric: Orientation: alert and oriented to person Results & Data Vital Signs (Past 12 Hours) Vital Signs Temp Pulse Pulse Resp BP BP Pulse Ox 08/11/23 07:47 37.0 C 79 18 108/65 96 08/11/23 07:23 72 08/11/23 02:57 37.3 C 78 18 103/65 97 08/10/23 23:00 78 08/10/23 22:34 37.3 C 75 18 109/67 95 O2 Del Method 08/11/23 07:47 Room Air 08/11/23 07:23 08/11/23 02:57 Room Air 08/10/23 23:00 08/10/23 22:34 Room Air PG Care Time/CCT Total # of Minutes Spent Total Time Spent with Patient: Total time spent is greater than 50% in coordination of care (as documented) at patient's floor/unit and/or counseling patient: Coding Level of Care Code 62385 INT INP/OBS CARE 2/55MIN Diagnoses Kidney stone on left side N20.0 Urinary tract infection N39.0; R31.9 Hematuria presence: with hematuria Urinary tract infection type: site unspecified (2) Urinary tract infection Hematuria presence: with hematuria Urinary tract infection type: site unspecified Qualified Code(s): N39.0 - Urinary tract infection, site not specified; R31.9 - Hematuria, unspecified
[2023-08-11 08:37] LABS: Basophils # (auto) 0.06 K/uL (0.00-0.20); Basophils % (auto) 0.5 %; Eosinophils # (auto) 0.19 K/uL (0.00-0.50); Eosinophils % (auto) 1.5 %; Hematocrit (blood only) 40.7 % (37.0-47.0); Hemoglobin 13.1 g/dl (12.0-16.0); Immature Granulocytes # (auto) 0.46 K/uL (0.01-0.20); Immature Granulocytes % (auto) 3.6 %; Lymphocytes # (auto) 0.71 K/uL (1.20-3.40); Lymphocytes % (auto) 5.5 %; Mean Corpuscular Hemoglobin 28.6 pg (25.0-34.0); Mean Corpuscular Hgb Conc 32.2 g/dL (32.0-36.0); Mean Corpuscular Volume 88.9 fL (80.0-100.0); Mean Platelet Volume 10.1 fL (9.4-12.4); Monocytes # (auto) 0.79 K/uL (0.11-0.59); Monocytes % (auto) 6.1 %; Neutrophils # (auto) 10.65 K/uL (1.40-6.50); Neutrophils % (auto) 82.8 %; Platelet Count 265 K/uL (130-400); RDW Coefficient of Variation 13.4 % (11.5-14.5); RDW Standard Deviation 43.9 fL (36.4-46.3); Red Blood Count 4.58 M/uL (4.20-5.40); White Blood Count 12.86 K/ul (4.8-10.8)
[2023-08-11 08:43] LABS: BUN Creatinine Ratio 12.6 (10-20); Calcium 8.5 mg/dl (8.6-10.3); Creatinine Clr Calc Pharmacy 40.5 ml/min; Est GFR (African American) 63.3 ml/min; Est GFR (Non-African American) 54.6 ml/min; Potassium 4.6 mmol/L (3.5-5.1)
[2023-08-11] MEDS ORDERED: LORazepam 0.5 MG TAB PO SCH (09:00)
[2023-08-11] MEDS: ESCITALOPRAM OXALATE 10 MG TAB PO SCH (09:35)
[2023-08-11] MEDS: PANTOprazole 40 MG TAB PO SCH (09:36)
[2023-08-11] MEDS: cefTRIAXone SODIUM 2,000 MG in DEXTROSE 5 % MINI-B 50 ML IV SCH (09:36)
--- NOTE | 2023-08-11 16:11 | Hospitalist Progress Note ---
Date of Service August 11, 2023 Assessment & Plan (1) Urinary tract infection: Plan: Presented with weakness and fever of 101 F on the evening of 08/09 With fever prior to arrival but none here so far, leukocytosis at 11.28 and now up to 12, no tachycardia and normal BPs UA + for infection, Ur cx growing GNR BCxs NGTD CXR negative Abdomen/pelvic CT revealed a left nephrolithiasis with persistent 1.8 cm calculus within the L renal pelvis and bilateral perinephric stranding, with left ureteral stent in place Hx of left ureteral stent placement with Dr. Heredia on 06/11/2023; patient was scheduled to have lithotripsy and stent removal on 08/11 Hx of UTI/Sepsis at [facility] from 07/07/2023- 07/13/2023; discharged on course of ciprofloxacin Was placed on Bactrim prescribed by Teto on 07/30 Last urine culture on 07/28/2023 showed no identification/sensitivities Seems to be improving Continue Rocephin 2000 mg IV q24h Follow Urcx, BCxs Follow CBC< BMP in AM Urology deferring on stone treatment and stent removal until after infection cleared (2) Dementia: Plan: Patient is a poor historian at baseline Continue donepezil, lorazepam-I confirmed with the [facility] that she takes 1.0 mg po hs scheduled and takes none during the day prn -changed this onhome med rec and for here Supportive care (3) MALINA (acute kidney injury): 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 and now down to 0.98 Likely from prerenal cause from fever, hypovolemia Now improved after IVFs CT abd/pel with ureteral stent in palce, no hydronephrosis or blockage Avoid nephrotoxic agents Eliquis dose lowered to 2.5 mg BID but she should be on this dose anyway given her age and weight < 60 kg Follow BMP (4) Kidney stone on left side: Plan: as above (5) Anxiety: Plan: Continue escitalopram and lorazepam as above (6) Atrial fibrillation: Plan: PAF-currently in NSR Continue Eliquis but lowered dose to 2.5mg po bid due to age and weight Can transfer off tele (7) GERD (gastroesophageal reflux disease): Plan: Continue pantoprazole Plan Disposition: continued stay but downgrade to med/surg. Ordered PT/OT to see if needs rehab. DNR/DNI VTE PPx: On Rosalia Discussed care with son on phone on 08/11 Admission and Anticipated Discharge Date Admission Date: August 11, 2023 Subjective Pt jaziel and has no complaints. She did pull out her IV. Asks me if I am writing her a new prescription. Denies abd pain or nausea, no headache, denies CP, SOB. Tele with NSR rates 60-70s Physical Exam Constitutional: WD/WN, vitals as above Respiratory: normal respiratory effort, lungs clear to auscultation Cardiovascular: RRR, no murmur, no edema Chest (Breasts): Chest: normal inspection of chest Gastrointestinal (Abdomen): normal bowel sounds, soft, nontender, no hepatosplenomegaly Musculoskeletal: Extremities: extremities normal to inspection; no cyanosis and no clubbing Skin: no rashes, warm and dry Neurologic: moves all extremities and awake; no focal motor deficits Psychiatric: Orientation: alert, oriented to person and cooperative; + not oriented to time Lymphatic: no lymphedema Results & Data Results & Data Vital Signs (Past 12 Hours) Vital Signs Temp Pulse Pulse Resp BP Pulse Ox O2 Del Method 08/11/23 15:56 81 08/11/23 11:35 37.6 C H 90 18 106/67 93 Room Air 08/11/23 09:40 Room Air 08/11/23 07:47 37.0 C 79 18 108/65 96 Room Air 08/11/23 07:23 72 Laboratory Results CBC, CMP, lactate reviewed PG Care Time/CCT Total # of Minutes Spent Total Time Spent with Patient: Total time spent is greater than 50% in coordination of care (as documented) at patient's floor/unit and/or counseling patient: Coding Level of Care Code 66710 SUB INP/OBS CARE 2/35MIN Diagnoses Urinary tract infection N39.0; R31.9 Hematuria presence: with hematuria Urinary tract infection type: site unspecified Dementia F03.90 Dementia behavioral or psychological symptom: unspecified whether behavioral, psychotic, or mood disturbance or anxiety Dementia severity: unspecified severity Dementia type: unspecified type MALINA (acute kidney injury) N17.9 Kidney stone on left side N20.0 Anxiety F41.9 Atrial fibrillation I48.91 GERD (gastroesophageal reflux disease) K21.9 (1) Urinary tract infection Hematuria presence: with hematuria Urinary tract infection type: site unspecified Qualified Code(s): N39.0 - Urinary tract infection, site not specified; R31.9 - Hematuria, unspecified (2) Dementia Dementia behavioral or psychological symptom: unspecified whether behavioral, psychotic, or mood disturbance or anxiety Dementia severity: unspecified severity Dementia type: unspecified type Qualified Code(s): F03.90 - Unspecified dementia, unspecified severity, without behavioral disturbance, psychotic disturbance, mood disturbance, and anxiety
[2023-08-11] MEDS: LORazepam 1 MG TAB PO SCH (21:38)
[2023-08-12 07:32] LABS: Basophils # (auto) 0.05 K/uL (0.00-0.20); Basophils % (auto) 0.5 %; Eosinophils # (auto) 0.28 K/uL (0.00-0.50); Eosinophils % (auto) 2.8 %; Hematocrit (blood only) 40.2 % (37.0-47.0); Hemoglobin 12.8 g/dl (12.0-16.0); Immature Granulocytes # (auto) 0.44 K/uL (0.01-0.20); Immature Granulocytes % (auto) 4.5 %; Lymphocytes # (auto) 0.99 K/uL (1.20-3.40); Mean Corpuscular Hemoglobin 28.6 pg (25.0-34.0); Mean Corpuscular Hgb Conc 31.8 g/dL (32.0-36.0); Mean Corpuscular Volume 89.7 fL (80.0-100.0); Monocytes # (auto) 0.68 K/uL (0.11-0.59); Monocytes % (auto) 6.9 %; Neutrophils # (auto) 7.43 K/uL (1.40-6.50); Neutrophils % (auto) 75.3 %; Platelet Count 302 K/uL (130-400); RDW Coefficient of Variation 13.5 % (11.5-14.5); RDW Standard Deviation 44.2 fL (36.4-46.3); Red Blood Count 4.48 M/uL (4.20-5.40); White Blood Count 9.87 K/ul (4.8-10.8)
[2023-08-12 08:11] LABS: BUN Creatinine Ratio 12.6 (10-20); Calcium 8.6 mg/dl (8.6-10.3); Creatinine Clr Calc Pharmacy 44.2 ml/min; Est GFR (African American) 70.4 ml/min; Est GFR (Non-African American) 60.7 ml/min; Potassium 4.6 mmol/L (3.5-5.1)
[2023-08-12] MEDS: CHOLECALCIFEROL 125 MCG (5,000 UNITS) TAB PO SCH (08:45)
--- NOTE | 2023-08-12 16:12 | Hospitalist Progress Note ---
Date of Service August 12, 2023 Assessment & Plan (1) Urinary tract infection: Plan: Presented with weakness and fever of 101 F on the evening of 08/09 With fever prior to arrival and Tmax here 37.7, leukocytosis at 12 and now normal, normal BPs Hx of left ureteral stent placement with Dr. Heredia on 06/11/2023; patient was scheduled to have lithotripsy and stent removal on 08/11 Hx of UTI/Sepsis at [facility] from 07/07/2023- 07/13/2023; discharged on course of ciprofloxacin Was placed on Bactrim prescribed by Teto on 07/30 Last urine culture on 07/28/2023 showed no identification/sensitivities UA + for infection, Ur cx growing E. coli resistant to Ampicillin, Unasyn, FQs, and nitrofurantoin BCxs remain NGTD CXR negative Abdomen/pelvic CT revealed a left nephrolithiasis with persistent 1.8 cm calculus within the L renal pelvis and bilateral perinephric stranding, with left ureteral stent in place Much improved Continue Rocephin 2000 mg IV q24h and convert to po Augmentin to finish out 7 day course after discharge Follow BCxs Follow CBC,BMP in AM Urology deferring on stone treatment and stent removal until after infection cleared (2) Dementia: Plan: Patient is a poor historian at baseline Continue donepezil, lorazepam-I confirmed with the [facility] that she takes 1.0 mg po hs scheduled and takes none during the day prn -changed this onhome med [facility] and for here Supportive care (3) 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 and now down to normal after receiving IVFs Likely from prerenal cause from fever, hypovolemia CT abd/pel with ureteral stent in palce, no hydronephrosis or blockage Avoid nephrotoxic agents Eliquis dose lowered to 2.5 mg BID but she should be on this dose anyway given her age and weight < 60 kg Follow BMP (4) Kidney stone on left side: Plan: as above (5) Anxiety: Plan: Continue escitalopram and lorazepam as above (6) Atrial fibrillation: Plan: PAF-in sinus rhythm here and transferred off tele With some tachycardia on exam today but sounds regular--> check ECG to see if having rapid afib Continue Eliquis but lowered dose to 2.5mg po bid due to age and weight Keep lytes replete Add beta laurita if rapid afib (7) GERD (gastroesophageal reflux disease): Plan: Continue pantoprazole Plan Disposition: continued stay on med/surg. PT/OT recommending rehab-referrals made by [employer]. Medically stable for discharge DNR/DNI VTE PPx: On Eliquis Discussed care with son on phone on 08/11 Admission and Anticipated Discharge Date Admission Date: August 11, 2023 Anticipated date of discharge: 08/13/23 Subjective Pt reports she feels well. SHe is OOB to chair, reading. Denies pain, denies CP, SOB. She thinks she is eating today and can't recall if she had any visitors. Physical Exam Constitutional: WD/WN, vitals as above Respiratory: normal respiratory effort, lungs clear to auscultation Cardiovascular: Rate/Rhythm: regular rhythm and + tachycardic Heart Sounds: no murmur Extremities: no edema Chest (Breasts): Chest: normal inspection of chest Gastrointestinal (Abdomen): normal bowel sounds, soft, nontender, no hepatosplenomegaly Musculoskeletal: Extremities: extremities normal to inspection; no cyanosis and no clubbing Skin: no rashes, warm and dry Neurologic: moves all extremities and awake; no focal motor deficits Psychiatric: Orientation: alert, oriented to person and cooperative; + not oriented to time Lymphatic: no lymphedema Results & Data Results & Data Vital Signs (Past 12 Hours) Vital Signs Temp Pulse Resp BP BP Pulse Ox O2 Del Method 08/12/23 15:53 116 H 120/88 94 Room Air 08/12/23 15:48 36.7 C 115 H 14 92/67 L 94 Room Air 08/12/23 07:18 36.7 C 80 16 110/67 95 Room Air Laboratory Results CBC, BMP, Blood and Ur cxs reviewed PG Care Time/CCT Total # of Minutes Spent Total Time Spent with Patient: Total time spent is greater than 50% in coordination of care (as documented) at patient's floor/unit and/or counseling patient: Coding Level of Care Code 41615 SUB INP/OBS CARE 2/35MIN Diagnoses Urinary tract infection N39.0; R31.9 Hematuria presence: with hematuria Urinary tract infection type: site unspecified Dementia F03.90 Dementia behavioral or psychological symptom: unspecified whether behavioral, psychotic, or mood disturbance or anxiety Dementia severity: unspecified severity Dementia type: unspecified type MALINA (acute kidney injury) N17.9 Kidney stone on left side N20.0 Anxiety F41.9 Atrial fibrillation I48.91 GERD (gastroesophageal reflux disease) K21.9 (1) Urinary tract infection Hematuria presence: with hematuria Urinary tract infection type: site unspecified Qualified Code(s): N39.0 - Urinary tract infection, site not specified; R31.9 - Hematuria, unspecified (2) Dementia Dementia behavioral or psychological symptom: unspecified whether behavioral, psychotic, or mood disturbance or anxiety Dementia severity: unspecified severity Dementia type: unspecified type Qualified Code(s): F03.90 - Unspecified dementia, unspecified severity, without behavioral disturbance, psychotic disturbance, mood disturbance, and anxiety
[2023-08-13 07:05] LABS: Hemoglobin 12.9 g/dl (12.0-16.0); Mean Corpuscular Hemoglobin 29.2 pg (25.0-34.0); Mean Corpuscular Hgb Conc 33.1 g/dL (32.0-36.0); Mean Corpuscular Volume 88.2 fL (80.0-100.0); Platelet Count 349 K/uL (130-400); RDW Coefficient of Variation 13.6 % (11.5-14.5); RDW Standard Deviation 44.2 fL (36.4-46.3); Red Blood Count 4.42 M/uL (4.20-5.40); White Blood Count 10.11 K/ul (4.8-10.8)
[2023-08-13 07:24] LABS: BUN Creatinine Ratio 14.1 (10-20); Calcium 8.9 mg/dl (8.6-10.3); Creatinine Clr Calc Pharmacy 38.8 ml/min; Est GFR (African American) 60.2 ml/min; Magnesium 1.8 mg/dl (1.7-2.4); Potassium 5.1 mmol/L (3.5-5.1)
[2023-08-13] MEDS: CHOLECALCIFEROL 125 MCG (5,000 UNITS) TAB PO SCH (07:37)
[2023-08-13 08:02] LABS: Basophils # (auto) 0.08 K/uL (0.00-0.20); Basophils % (auto) 0.8 %; Eosinophils # (auto) 0.28 K/uL (0.00-0.50); Eosinophils % (auto) 2.8 %; Immature Granulocytes # (auto) 0.53 K/uL (0.01-0.20); Immature Granulocytes % (auto) 5.2 %; Lymphocytes # (auto) 1.05 K/uL (1.20-3.40); Lymphocytes % (auto) 10.4 %; Monocytes # (auto) 0.76 K/uL (0.11-0.59); Monocytes % (auto) 7.5 %; Neutrophils # (auto) 7.41 K/uL (1.40-6.50); Neutrophils % (auto) 73.3 %; Toxic Vacuolation 1+
--- NOTE | 2023-08-13 12:00 | Hospitalist Progress Note ---
Date of Service August 13, 2023 Assessment & Plan (1) Urinary tract infection: Plan: Presented with weakness and fever of 101 F on the evening of 08/09 With fever prior to arrival and Tmax here 37.7, leukocytosis at 12 and now normal, normal BPs No fever since 08/11 Hx of left ureteral stent placement with Dr. Heredia on 06/11/2023; patient was scheduled to have lithotripsy and stent removal on 08/11 Hx of UTI/Sepsis at [facility] from 07/07/2023- 07/13/2023; discharged on course of ciprofloxacin Was placed on Bactrim prescribed by Teto on 07/30 Last urine culture on 07/28/2023 showed no identification/sensitivities UA + for infection, Ur cx growing E. coli resistant to Ampicillin, Unasyn, FQs, and nitrofurantoin BCxs remain NGTD CXR negative Abdomen/pelvic CT revealed a left nephrolithiasis with persistent 1.8 cm calculus within the L renal pelvis and bilateral perinephric stranding, with left ureteral stent in place Much improved Continue Rocephin 2000 mg IV q24h and convert to po Augmentin to finish out 7 day course after discharge Follow BCxs-remain NGTD Follow CBC,BMP in AM Urology deferring on stone treatment and stent removal until after infection cleared (2) Dementia: Plan: Patient is a poor historian at baseline Continue donepezil, lorazepam-I confirmed with the [facility] that she takes 1.0 mg po hs scheduled and takes none during the day prn -changed this on home med rec and for here Supportive care (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 Is on chronic po KCl supplementation at home-not needed for now-dc po KCl and follow BMP (4) Kidney stone on left side: Plan: as above (5) Anxiety: Plan: Continue escitalopram and lorazepam as above (6) Atrial fibrillation: Plan: PAF-in sinus rhythm here and transferred off tele With some sinus tachycardia on 08/12 cofirmed sinus on ECG-now resolved Continue Eliquis but lowered dose to 2.5mg po bid due to age and weight Keep lytes replete (7) GERD (gastroesophageal reflux disease): Plan: Continue pantoprazole Plan Disposition: continued stay on med/surg, medically stable for discharge but awaiting placement-confirmed with showcase maker that she will have a bed and already has insurance auth approved for [facility] on WednesdayAug 16. PT/OT recommending rehab-referrals made by [facility]. Medically stable for discharge DNR/DNI VTE PPx: On Eliquis Discussed care with son on phone on 08/11 Admission and Anticipated Discharge Date Admission Date: August 11, 2023 Subjective Has no complaints, smiling, pleasant, denies any pain. Physical Exam Constitutional: WD/WN, vitals as above Respiratory: normal respiratory effort, lungs clear to auscultation Cardiovascular: RRR, no murmur, no edema Gastrointestinal (Abdomen): normal bowel sounds, soft, nontender, no hepatosplenomegaly Musculoskeletal: Extremities: extremities normal to inspection; no cyanosis and no clubbing Skin: no rashes, warm and dry Neurologic: moves all extremities and awake; no focal motor deficits Psychiatric: Orientation: alert, oriented to person and cooperative; + not oriented to time Lymphatic: no lymphedema Results & Data Results & Data Vital Signs (Past 12 Hours) Vital Signs Temp Pulse Resp BP Pulse Ox O2 Del Method 08/13/23 07:56 36.6 C 72 16 112/69 95 Room Air PG Care Time/CCT Total # of Minutes Spent Total Time Spent with Patient: Total time spent is greater than 50% in coordination of care (as documented) at patient's floor/unit and/or counseling patient: Coding Level of Care Code 07571 SUB INP/OBS CARE 08/05MIN Diagnoses Urinary tract infection N39.0; R31.9 Hematuria presence: with hematuria Urinary tract infection type: site unspecified Dementia F03.90 Dementia behavioral or psychological symptom: unspecified whether behavioral, psychotic, or mood disturbance or anxiety Dementia severity: unspecified severity Dementia type: unspecified type MALINA (acute kidney injury) N17.9 Kidney stone on left side N20.0 Anxiety F41.9 Atrial fibrillation I48.91 GERD (gastroesophageal reflux disease) K21.9 (1) Urinary tract infection Hematuria presence: with hematuria Urinary tract infection type: site unspecified Qualified Code(s): N39.0 - Urinary tract infection, site not specified; R31.9 - Hematuria, unspecified (2) Dementia Dementia behavioral or psychological symptom: unspecified whether behavioral, psychotic, or mood disturbance or anxiety Dementia severity: unspecified severity Dementia type: unspecified type Qualified Code(s): F03.90 - Unspecified dementia, unspecified severity, without behavioral disturbance, psychotic disturbance, mood disturbance, and anxiety
[2023-08-13] MEDS: ONDANSETRON INJ 2 MG/ML 2 ML VIAL IV PRN (14:51)
[2023-08-13 15:16] LABS: Hematocrit (blood only) 43.8 % (37.0-47.0); Hemoglobin 13.9 g/dl (12.0-16.0); Mean Corpuscular Hemoglobin 28.7 pg (25.0-34.0); Mean Corpuscular Hgb Conc 31.7 g/dL (32.0-36.0); Mean Corpuscular Volume 90.3 fL (80.0-100.0); Mean Platelet Volume 9.8 fL (9.4-12.4); Platelet Count 374 K/uL (130-400); RDW Coefficient of Variation 13.7 % (11.5-14.5); RDW Standard Deviation 45.1 fL (36.4-46.3); Red Blood Count 4.85 M/uL (4.20-5.40); White Blood Count 12.55 K/ul (4.8-10.8)
[2023-08-13 15:33] LABS: Bilirubin,Total 0.3 mg/dl (0.2-1.0); Calcium 8.9 mg/dl (8.6-10.3); Magnesium 1.8 mg/dl (1.7-2.4); Potassium 4.6 mmol/L (3.5-5.1)
[2023-08-13 15:38] LABS: Basophils # (auto) 0.08 K/uL (0.00-0.20); Basophils % (auto) 0.6 %; Eosinophils # (auto) 0.23 K/uL (0.00-0.50); Eosinophils % (auto) 1.8 %; Immature Granulocytes # (auto) 0.65 K/uL (0.01-0.20); Immature Granulocytes % (auto) 5.2 %; Lymphocytes # (auto) 1.61 K/uL (1.20-3.40); Lymphocytes % (auto) 12.8 %; Monocytes # (auto) 0.94 K/uL (0.11-0.59); Monocytes % (auto) 7.5 %; Neutrophils # (auto) 9.04 K/uL (1.40-6.50); Neutrophils % (auto) 72.1 %
[2023-08-13 15:39] LABS: Albumin Globulin Ratio 0.9 (0.9-2); BUN Creatinine Ratio 13.9 (10-20); Creatinine Clr Calc Pharmacy 38.1 ml/min; Est GFR (African American) 58.8 ml/min; Est GFR (Non-African American) 50.7 ml/min; Globulin 3.3 gm/dl (2.5-4.0); Total Protein 6.3 gm/dl (6.0-8.3)
[2023-08-13 15:41] LABS: Troponin I High Sensitivity 2.4 pg/ml (0-14)
--- NOTE | 2023-08-14 06:30 | Electrocardiogram Report ---
Test Reason : Blood Pressure : / mmHG Vent. Rate : 103 BPM Atrial Rate : 103 BPM P-R Int : 174 ms QRS Dur : 076 ms QT Int : 336 ms P-R-T Axes : 039 -62 085 degrees QTc Int : 440 ms Sinus tachycardia Left anterior fascicular block Anterior infarct , age undetermined Nonspecific ST and T wave abnormality Abnormal ECG When compared with ECG of 10-JUN-2023 10:39, Vent. rate has increased BY 40 BPM Confirmed by Aldair Mackey ([id number]) on 08/14/2023 6:30:02 AM Referred By: Chuy Mcdonald Confirmed By:Aldair Mackey
[2023-08-14 06:57] LABS: Hematocrit (blood only) 39.9 % (37.0-47.0); Hemoglobin 13.1 g/dl (12.0-16.0); Mean Corpuscular Hemoglobin 29.3 pg (25.0-34.0); Mean Corpuscular Hgb Conc 32.8 g/dL (32.0-36.0); Mean Corpuscular Volume 89.3 fL (80.0-100.0); Mean Platelet Volume 9.7 fL (9.4-12.4); Platelet Count 370 K/uL (130-400); RDW Coefficient of Variation 13.6 % (11.5-14.5); RDW Standard Deviation 44.3 fL (36.4-46.3); Red Blood Count 4.47 M/uL (4.20-5.40); White Blood Count 9.69 K/ul (4.8-10.8)
[2023-08-14 07:15] LABS: BUN Creatinine Ratio 13.1 (10-20); Calcium 8.7 mg/dl (8.6-10.3); Creatinine Clr Calc Pharmacy 38.8 ml/min; Est GFR (African American) 60.2 ml/min; Potassium 4.4 mmol/L (3.5-5.1)
[2023-08-14 07:18] LABS: Basophils # (auto) 0.07 K/uL (0.00-0.20); Basophils % (auto) 0.7 %; Eosinophils # (auto) 0.18 K/uL (0.00-0.50); Eosinophils % (auto) 1.9 %; Immature Granulocytes # (auto) 0.54 K/uL (0.01-0.20); Immature Granulocytes % (auto) 5.6 %; Lymphocytes # (auto) 1.27 K/uL (1.20-3.40); Lymphocytes % (auto) 13.1 %; Monocytes # (auto) 0.68 K/uL (0.11-0.59); Neutrophils # (auto) 6.95 K/uL (1.40-6.50); Neutrophils % (auto) 71.7 %; RBC Morphology Unremarkable
--- NOTE | 2023-08-14 13:20 | Hospitalist Progress Note ---
Date of Service August 14, 2023 Assessment & Plan (1) Urinary tract infection: Plan: Presented with weakness and fever of 101 F on the evening of 08/09 With fever prior to arrival and Tmax here 37.7, leukocytosis at 12 and now normal, normal BPs No fever since 08/11 Hx of left ureteral stent placement with Dr. Heredia on 06/11/2023; patient was scheduled to have lithotripsy and stent removal on 08/11 Hx of UTI/Sepsis at [facility] from 07/07/2023- 07/13/2023; discharged on course of ciprofloxacin Was placed on Bactrim prescribed by Teto on 07/30 Last urine culture on 07/28/2023 showed no identification/sensitivities UA + for infection, Ur cx growing E. coli resistant to Ampicillin, Unasyn, FQs, and nitrofurantoin BCxs remain NGTD CXR negative Abdomen/pelvic CT revealed a left nephrolithiasis with persistent 1.8 cm calculus within the L renal pelvis and bilateral perinephric stranding, with left ureteral stent in place Much improved Continue Rocephin 2000 mg IV q24h and convert to po Augmentin to finish out course after discharge Follow BCxs-remain NGTD Follow CBC,BMP in AM Urology deferring on stone treatment and stent removal until after infection cleared (2) Dementia: Plan: Patient is a poor historian at baseline Continue donepezil, lorazepam-I confirmed with the [facility] that she takes 1.0 mg po hs scheduled and takes none during the day prn -changed this on home med rec and for here Supportive care (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 Is on chronic po KCl supplementation at home-not needed for now-dc po KCl and follow BMP (4) Kidney stone on left side: Plan: as above (5) Anxiety: Plan: Continue escitalopram and lorazepam as above (6) Atrial fibrillation: Plan: PAF-in sinus rhythm here and transferred off tele With some sinus tachycardia on 08/12 cofirmed sinus on ECG-now resolved Continue Eliquis but lowered dose to 2.5mg po bid due to age and weight Keep lytes replete (7) GERD (gastroesophageal reflux disease): Plan: Continue pantoprazole Plan Disposition: continued stay on med/surg, medically stable for discharge but awaiting placement-confirmed with telephonic case manager that she will have a bed and already has insurance auth approved for [facility] on WednesdayAug 16. PT/OT recommending rehab-referrals made by [employer]. Medically stable for discharge DNR/DNI VTE PPx: On Eliquis Discussed care with son on phone on 08/11 Admission and Anticipated Discharge Date Admission Date: August 11, 2023 Subjective Patient feels well. Denies chest pain or shortness of breath. She is waiting to go to [facility] on Wednesday. Review of Systems Review of Systems: All systems reviewed & are unremarkable except as noted in Subjective Physical Exam Physical Exam: General: Awake, conversant Heart: S1, S2/regular rate and rhythm, no murmur rubs or gallops Lungs: Clear to auscultation bilaterally. Normal effort Abdomen: Soft/nontender/nondistended. No hepatosplenomegaly Extremities: No clubbing/cyanosis. No edema Behavior: Appropriate, cooperative Results & Data Results & Data Vital Signs (Past 12 Hours) Vital Signs Temp Pulse Resp BP Pulse Ox O2 Del Method 08/14/23 07:24 36.4 C L 95 H 16 124/72 95 Room Air Laboratory Results Abnormal lab results 08/13/23 08/14/23 Range/Units 15:00 06:34 WBC 12.55 H (4.8-10.8) K/ul MCHC 31.7 L (32.0-36.0) g/dL Neut # (Auto) 9.04 H 6.95 H (1.40-6.50) K/uL [place] # (Auto) 0.94 H 0.68 H (0.11-0.59) K/uL Immature Gran # (Auto) 0.65 H 0.54 H (0.01-0.20) K/uL Sodium 135 L (136-145) mmol/L Glucose 127 H 101 H (70-99(Fasting)) mg/dl AST 12 L (13-39) U/L Albumin 3.0 L (3.4-5.0) gm/dl PG Care Time/CCT Total # of Minutes Spent Total Time Spent with Patient: Total time spent is greater than 50% in coordination of care (as documented) at patient's floor/unit and/or counseling patient: Coding Level of Care Code 76835 SUB INP/OBS CARE 2/35MIN Diagnoses Urinary tract infection N39.0; R31.9 Hematuria presence: with hematuria Urinary tract infection type: site unspecified Dementia F03.90 Dementia behavioral or psychological symptom: unspecified whether behavioral, psychotic, or mood disturbance or anxiety Dementia severity: unspecified severity Dementia type: unspecified type MALINA (acute kidney injury) N17.9 Kidney stone on left side N20.0 Anxiety F41.9 Atrial fibrillation I48.91 GERD (gastroesophageal reflux disease) K21.9 (1) Urinary tract infection Hematuria presence: with hematuria Urinary tract infection type: site unspecified Qualified Code(s): N39.0 - Urinary tract infection, site not specified; R31.9 - Hematuria, unspecified (2) Dementia Dementia behavioral or psychological symptom: unspecified whether behavioral, psychotic, or mood disturbance or anxiety Dementia severity: unspecified severity Dementia type: unspecified type Qualified Code(s): F03.90 - Unspecified dementia, unspecified severity, without behavioral disturbance, psychotic disturbance, mood disturbance, and anxiety
--- NOTE | 2023-08-15 06:00 | Electrocardiogram Report ---
Test Reason : Blood Pressure : / mmHG Vent. Rate : 086 BPM Atrial Rate : 086 BPM P-R Int : 178 ms QRS Dur : 084 ms QT Int : 392 ms P-R-T Axes : 033 -52 083 degrees QTc Int : 469 ms Normal sinus rhythm Left anterior fascicular block Nonspecific T wave abnormality Abnormal ECG When compared with ECG of 12-AUG-2023 16:18, No significant change was found Confirmed by Aldair Mackey ([id number] on 08/15/2023 6:00:08 AM Referred By: Chuy Mcdonald Confirmed By:Aldair Mackey
--- NOTE | 2023-08-15 12:42 | Hospitalist Progress Note ---
Date of Service August 15, 2023 Assessment & Plan (1) Urinary tract infection: Plan: Presented with weakness and fever of 101 F on the evening of 08/09 With fever prior to arrival and Tmax here 37.7, leukocytosis at 12 and now normal, normal BPs No fever since 08/11 Hx of left ureteral stent placement with Dr. Heredia on 06/11/2023; patient was scheduled to have lithotripsy and stent removal on 08/11 Hx of UTI/Sepsis at [facility] from 07/07/2023- 07/13/2023; discharged on course of ciprofloxacin Was placed on Bactrim prescribed by Teto on 07/30 Last urine culture on 07/28/2023 showed no identification/sensitivities UA + for infection, Ur cx growing E. coli resistant to Ampicillin, Unasyn, FQs, and nitrofurantoin BCxs remain NGTD CXR negative Abdomen/pelvic CT revealed a left nephrolithiasis with persistent 1.8 cm calculus within the L renal pelvis and bilateral perinephric stranding, with left ureteral stent in place Much improved Continue Rocephin 2000 mg IV q24h and convert to po Augmentin to finish out course after discharge Follow BCxs-remain NGTD Follow CBC,BMP in AM Urology deferring on stone treatment and stent removal until after infection cleared (2) Dementia: Plan: Patient is a poor historian at baseline Continue donepezil, lorazepam-I confirmed with the [facility] that she takes 1.0 mg po hs scheduled and takes none during the day prn -changed this on home med rec and for here Supportive care (3) MALINA (acute kidney 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 Is on chronic po KCl supplementation at home-not needed for now-dc po KCl and follow BMP (4) Kidney stone on left side: Plan: as above (5) Anxiety: Plan: Continue escitalopram and lorazepam as above (6) Atrial fibrillation: Plan: PAF-in sinus rhythm here and transferred off tele With some sinus tachycardia on 08/12 cofirmed sinus on ECG-now resolved Continue Eliquis but lowered dose to 2.5mg po bid due to age and weight Keep lytes replete (7) GERD (gastroesophageal reflux disease): Plan: Continue pantoprazole Plan Disposition: continued stay on med/surg, medically stable for discharge but awaiting placement-confirmed with case making machine operator that she will have a bed and already has insurance auth approved for [facility] on WednesdayAug 16. PT/OT recommending rehab-referrals made by [employer]. Medically stable for discharge DNR/DNI VTE PPx: On Eliquis Discussed care with son on phone on 08/11 Admission and Anticipated Discharge Date Admission Date: August 11, 2023 Subjective Patient feels well. Denies chest pain or shortness of breath. Smiling Review of Systems Review of Systems: All systems reviewed & are unremarkable except as noted in Subjective Physical Exam Physical Exam: General: Awake, conversant Heart: S1, S2/regular rate and rhythm, no murmur rubs or gallops Lungs: Clear to auscultation bilaterally. Normal effort Abdomen: Soft/nontender/nondistended. No hepatosplenomegaly Extremities: No clubbing/cyanosis. No edema Behavior: Appropriate, cooperative Results & Data Results & Data Vital Signs (Past 12 Hours) Vital Signs Temp Pulse Resp BP Pulse Ox O2 Del Method 08/15/23 07:27 36.3 C L 61 16 130/67 97 Room Air PG Care Time/CCT Total # of Minutes Spent Total Time Spent with Patient: Total time spent is greater than 50% in coordination of care (as documented) at patient's floor/unit and/or counseling patient: Coding Level of Care Code 68731 SUB INP/OBS CARE 235MIN Diagnoses Urinary tract infection N39.0; R31.9 Hematuria presence: with hematuria Urinary tract infection type: site unspecified Dementia F03.90 Dementia behavioral or psychological symptom: unspecified whether behavioral, psychotic, or mood disturbance or anxiety Dementia severity: unspecified severity Dementia type: unspecified type MALINA (acute kidney injury) N17.9 Kidney stone on left side N20.0 Anxiety F41.9 Atrial fibrillation I48.91 GERD (gastroesophageal reflux disease) K21.9 (1) Urinary tract infection Hematuria presence: with hematuria Urinary tract infection type: site unspecified Qualified Code(s): N39.0 - Urinary tract infection, site not specified; R31.9 - Hematuria, unspecified (2) Dementia Dementia behavioral or psychological symptom: unspecified whether behavioral, psychotic, or mood disturbance or anxiety Dementia severity: unspecified severity Dementia type: unspecified type Qualified Code(s): F03.90 - Unspecified dementia, unspecified severity, without behavioral disturbance, psychotic disturbance, mood disturbance, and anxiety
[2023-08-16 07:46] VITALS: RESP 16; O2SAT 95
[2023-08-16 11:16] VITALS: BP 113/71; PULSE 70; TEMP 98.2
--- NOTE | 2023-08-16 11:50 | Discharge Summary ---
Date of Service August 16, 2023 Admission HPI Per Admitting Provider Alexandra 73-year-old female with PMH of Alzheimer's dementia, A-fib (on Eliquis), anxiety, HTN, OA, UTI, and left nephrolithiasis s/p left ureteral stent placement on 06/11/[address] Heredia. Patient arrived via EMS for 101 F fever and weakness that developed the evening of 08/09 at her [facility] [place] [facility]. Patient is a poor historian due to her underlying Alzheimer's dementia, and most of the history is provided by her son (Jc) at the bedside. Patient reportedly had a high fever last night, and could not use her walker for ambulation. She had similar symptoms prior to hospitalization at [facility] for UTI/sepsis in late June 2023. Recent [facility] hospitalization from 06/10/23 - 06/14/23 for obstructing 1.8 cm stone within the left renal pelvis; of note, the patient was scheduled for stent removal with Dr. Heredia tomorrow on 08/11. Patient's son also reports that she has been passing blood in her urine recently due to her stent. She took all of her morning medications, which [facility]; this includes Eliquis for A-fib. Patient is hypotensive at 89/51 at time of admission. Per review of [facility] urology H&P from 07/10/2023 (during patient's hospital stay for UTI/sepsis) she was admitted for fever up to 103 F and confusion from her [facility]. Patient had a "urine culture done on 07/07 that grew E. coli sensitive to all"; "pansensitive". First set of blood cultures were believed to be contaminated; repeat blood cultures were negative. Patient remained on Rocephin throughout her hospitalization. Discharged on 07/13/2023 with a course of ciprofloxacin 500 mg p.o. twice daily x 7 days. ED course: Rocephin 2000 mg IV NSS 1000 mL IV x 2 Unable to obtain accurate ROS due to patient's underlying cognitive state. However, she denies any symptoms at this time. Admission Exam Per Admitting Provider General: no acute distress; pleasant affect; non-toxic appearing; well- nourished; cooperative HEENT: normocephalic, atraumatic; no scleral icterus; PERRLA w/ EOMs intact; moist mucus membrane; vision and hearing grossly intact Neck: supple; no lymphadenopathy; trachea midline Skin: warm, dry without signs of tenting; no cyanosis; no rashes, bruising, lesions, or erythema noted CV: chest wall NTP; RRR; S1/S2 normal; no murmurs/rubs/gallops; pulses intact and symmetric at radial, DP, and PT Lungs: no acute respiratory distress; symmetrical chest wall expansion; clear breath sounds across all lung luke w/o adventitious sounds; no wheezing ABD: Soft, NTP; no suprapubic tenderness on palpation; BS present; no rebound/guarding; no ascites; no distention; negative CVA tenderness MSK: no tics or fasciculations; no edema noted in the LEs b/l, nonerythematous Neuro: Oriented to name//month, but not location; fluent speech; no focal deficits; sensation intact in the LEs b/l Principal Diagnosis Acute complicated UTI secondary to infected left nephrolithiasis and left ureteric stent in place Sepsis Acute kidney injury secondary to sepsis Discharge Exam General: Awake, conversant Heart: S1, S2/regular rate and rhythm, no murmur rubs or gallops Lungs: Clear to auscultation bilaterally. Normal effort Abdomen: Soft/nontender/nondistended. No hepatosplenomegaly Extremities: No clubbing/cyanosis. No edema Behavior: Appropriate, cooperative Discharge Data Allergies Allergy/AdvReac Type Severity Reaction Status Date / Time No Known Allergies Allergy Unverified 08/10/23 12:54 Consultations 08/10/23 12:17 ED Decision to Admit Stat 08/10/23 16:53 Consult Urology Routine Ordered Studies 08/10/23 09:52 CT abd pelvis IV con only Stat Hospital Course (1) Urinary tract infection: Presented with weakness and fever of 101 F on the evening of 08/09 With fever prior to arrival and Tmax here 37.7, leukocytosis at 12 and now normal, normal BPs No fever since 08/11 Hx of left ureteral stent placement with Dr. Heredia on 06/11/2023; patient was scheduled to have lithotripsy and stent removal on 08/11 Hx of UTI/Sepsis at [facility] from 07/07/2023- 07/13/2023; discharged on course of ciprofloxacin Was placed on Bactrim prescribed by Teto on 07/30 Last urine culture on 07/28/2023 showed no identification/sensitivities UA + for infection, Ur cx growing E. coli resistant to Ampicillin, Unasyn, FQs, and nitrofurantoin BCxs remain NGTD CXR negative Abdomen/pelvic CT revealed a left nephrolithiasis with persistent 1.8 cm calculus within the L renal pelvis and bilateral perinephric stranding, with left ureteral stent in place Much improved Was treated with Rocephin during the hospital stay. Converted to p.o. Augmentin to finish out the course. 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 Is on chronic po KCl supplementation at home- discontinued during this hospital stay. Resumed at the time of discharge (4) Kidney stone on left side: as above (5) Anxiety: Continue escitalopram and lorazepam as above (6) Atrial fibrillation: PAF-in sinus rhythm here and transferred off tele With some sinus tachycardia on 08/12 cofirmed sinus on ECG-now resolved Continue Eliquis but lowered dose to 2.5mg po bid due to age and weight Keep lytes replete (7) GERD (gastroesophageal reflux disease): Continue pantoprazole Plan DNR/DNI VTE PPx: On Eliquis Discharge today Total Time Total Time Spent Total Time Spent (In Minutes): 35 Discharge Plan Discharge Items Patient Disposition: Transfer Long-Term Fac Reason For Visit: SEPSIS, UTI Discharge Diagnosis: Acute complicated UTI secondary to infected left nephrolithiasis and left ureteric stent in place Sepsis Acute kidney injury secondary to sepsis Activity: As commented below Activity Comment: Per PT/OT recommendation Non-emergency contact: Primary Care Provider Call non-emergency contact if: you have any medication questions and your symptoms worsen Follow-up/Referrals: Chuy Mcdonald [Primary Care Provider] - Diet: Heart Healthy Addtl Attending Provider Instructions: Advised to follow-up with PCP in 1 week Advised to follow-up with urology Pending Studies at Discharge: No Stand-Alone Forms: My [facility] Skilled Items Patient informed of condition?: Yes DNR: Yes Discharge Level of Care: Skilled Communicable Disease: No Discharge Prognosis: Stable Lines: None Urinary Catheter: No Medications and DC Order Prescriptions: New Eliquis 2.5 mg Tablet 2.5 mg PO BID 30 Days Qty: 60 0RF amoxicillin-pot clavulanate 500-125 mg tablet 1 tab PO BID 7 Days Qty: 14 0RF Continued donepezil 10 mg Tablet 10 mg PO HS pantoprazole 40 mg Tablet,Delayed Release (Dr/Ec) 40 mg PO QAM escitalopram oxalate 10 mg Tablet 10 mg PO QAM melatonin 5 mg Tablet 5 mg PO HS cholecalciferol (vitamin D3) [Vitamin D3] 125 mcg (5,000 unit) Tablet 125 mcg PO QAM potassium chloride 20 mEq packet 20 meq PO BID lorazepam 0.5 mg tablet 1 mg PO HS acetaminophen 325 mg Tablet 650 mg PO Q6H MDD 3g/24hr PRN (Reason: Pain) calcium carbonate-vitamin D3 [Calcium 600 + D(3)] 600 mg-10 mcg (400 unit) Tablet 1 tab PO DAILY sulfamethoxazole-trimethoprim 800-160 mg tablet 1 tab PO BID Rx Instructions: Start Date 08/08/23 - End Date 08/14/23 Discontinued Eliquis 5 mg Tablet 5 mg PO BID Discharge Orders: Discharge Order (Routine); Ordered 08/16/23 Ordered By: Shahnaz Ahn Admission Data Admit Date/Time: 08/11/23 13:43 Attending Provider: Shahnaz Ahn Admit Provider: Adi Philippe Primary Care Provider: Chuy Mcdonald Other Providers: Adi Philippe; Ortiz Heredia; [place]; Ender,Ender Other Interventions: Discharge Summary Assessment (RN) Last Done: 08/16/23 12:00 Coding Level of Care Code 15007 INP/OBS DISCH >30 MIN Diagnoses Urinary tract infection N39.0; R31.9 Hematuria presence: with hematuria Urinary tract infection type: site unspecified Dementia F03.90 Dementia behavioral or psychological symptom: unspecified whether behavioral, psychotic, or mood disturbance or anxiety Dementia severity: unspecified severity Dementia type: unspecified type MALINA (acute kidney injury) N17.9 Kidney stone on left side N20.0 Anxiety F41.9 Atrial fibrillation I48.91 GERD (gastroesophageal reflux disease) K21.9
== END 2023-08-16 12:27 | DRG 872 ==
LOC: ED 09:04 → 2W 09:04 → SUATTDRO 13:12 → 2W 16:26 → SUATTDRO 08-11 13:43 → 3N 08-11 21:16

== ENCOUNTER 2023-10-21 10:28 | Inpatient (IN) ==
--- NOTE | 2023-10-21 11:38 | Emergency Department Note ---
Impression & Plan Pyelonephritis, Dementia, Weakness ED Provider Note Provider: Shaheed Gordon MD DATE OF SERVICE: 10/21/2023 CHIEF COMPLAINT: Weakness, abnormal urine HISTORY OF PRESENT ILLNESS: Patient is a 83-year-old female history of dementia, kidney stones, compression fractures, hypertension presenting via ambulance from [facility] where she resides. Evidently last 4 days has been increasingly weak. Urine sample sent for testing yesterday. According facility urine has become somewhat milky in nature. Fever yesterday. No falls reported. Patient denies significant complaints but family at bedside states she is not a reliable historian. They states several months ago she did have a kidney stone and stenting but did have significant pain then. Patient answering questions and keenly awake however. Not sure exactly who family are but again denies any pain or follows commands here. PAST MEDICAL HISTORY: As noted above MEDICATIONS: Reviewed medication list from the facility SOCIAL HISTORY: Resides at [facility] PHYSICAL EXAM: GENERAL: alert and oriented to person and birthday in no acute distress on stretcher but not a good historian to recent events. Head: normocephalic and atraumatic EYES: No injection, discharge or icterus. EOMI. NECK: Trachea midline. Supple. ENT: Mucous membranes pink and moist. LUNGS: Airway patent. No retractions. Breath sounds clear with good air entry bilaterally. HEART: Regular rate and rhythm. No chest wall tenderness ABDOMEN: Soft and non-tender, without guarding or rebound. No masses appreciated SKIN: Acyanotic, warm, dry, without rashes EXTREMITIES: Without swelling, tenderness or deformity NEUROLOGICAL: No focal deficits moving all extremities. No aphasia. No facial droop or slurred speech. EK beats per minute. Normal sinus rhythm. No PVC or PAC. Left axis. Nonspecific T wave changes with a QTc of 433. No ST segment elevation or depression appreciated CONTINUOUS CARDIAC MONITORING: was ordered and showed a heart rate of 50s to 60s bpm in normal sinus rhythm to sinus bradycardia Patient's laboratory studies and imaging reviewed. Differential includes Infection, dehydration, metabolic abnormality, hypo/hyperglycemia, electrolyte disturbance, anemia, hypoxia, cardiac sources, intracerebral event, toxicologic, neurologic, as well as other pathologies. IMPRESSION/MEDICAL DECISION MAKING: Afebrile here. Unfortunately with dementia not a good historian. No obvious tenderness to the abdomen on exam. No focal neurological deficits beyond her baseline dementia which family report and doubt this represents CVA or intracranial hemorrhage. No trauma history. Blood work will be obtained and given some gentle IV fluid hydration given some decreased intake. Will attempt urine collection. Will obtain CT scan of the abdomen pelvis as well as chest x- ray to look for any occult pneumonia as well as any occult kidney stone given her history of similar in the recent past. Review of prior microbiology shows some resistant E. coli in the past. Chest x-ray without acute abnormality noted on review. Blood work here without anemia or leukocytosis. No significant electrolyte abnormality with very slight creatinine elevation 1.3 from baseline around 1. No significant LFT abnormality noted with normal lactate. Urinalysis shows signs of infection and CT scan confirms what looks like UTI to pyelonephritis in the left. Updated family. Based on prior sensitivities given a dose ceftriaxone. Some additional IV fluid given but patient's in good spirits with her baseline mentation and dementia and I doubt septic shock. DIAGNOSIS: Acute TIA, weakness, pyelonephritis DISPOSITION: Hospitalist will evaluate Patient was agreeable with this plan. Past Med/Surg History Medical History Sepsis due to UTI per 07/19/23 urology records (admitted to [facility])- discharged on abx HTN (hypertension) Atrial fibrillation On Eliquis per records On anticoagulant therapy a fib reason for Eliquis per records Poor historian pt's step son (POA) provided hx GERD (gastroesophageal reflux disease) Kidney stones Anxiety Dementia Surgical History S/P ureteral stent placement History of cystoscopy History of appendectomy History of open reduction and internal fixation (ORIF) procedure Social History Smoking Status: Never smoker Second Hand Exposure: No; Do You Dip or Chew Tobacco: No; Hx Alcohol Use: No Hx Substance Use: No Preferred Language: Turkish Communication Ability: Effective Workshop Manager Required: No Beliefs That Will Affect Care: None Current Living Situation: Residential Current Living Situation Comment: [facility] Feels Safe at Home: Yes Assistive Devices: Walker Allergies Allergies Allergy/AdvReac Type Severity Reaction Status Date / Time No Known Allergies Allergy Unverified 08/10/23 12:54 Home Meds Home Medications Medication Instructions Recorded Confirmed cholecalciferol (vitamin D3) 125 125 mcg PO .@8AM 04/05/23 10/21/23 mcg (5,000 unit) tablet (Vitamin D3) donepezil 10 mg tablet 10 mg PO .8PM 04/05/23 10/21/23 escitalopram oxalate 10 mg tablet 10 mg PO .@8AM 04/05/23 10/21/23 melatonin 5 mg tablet 5 mg PO .@8PM 04/05/23 10/21/23 pantoprazole 40 mg tablet,delayed 40 mg PO .@8AM 04/05/23 10/21/23 release lorazepam 0.5 mg tablet 1 mg PO HS PRN Anxiety 06/10/23 10/21/23 potassium chloride 20 mEq oral 20 meq PO .@8AM,5PM 06/10/23 10/21/23 packet acetaminophen 325 mg tablet 650 mg PO Q6H PRN Pain 08/10/23 10/21/23 calcium carbonate 600 mg-vitamin 1 tab PO .@8AM 08/10/23 10/21/23 D3 10 mcg (400 unit) tablet (Calcium 600 + D(3)) apixaban 2.5 mg tablet (Eliquis) 2.5 mg PO .@8AM,8PM 10/21/23 10/21/23 lorazepam 0.5 mg tablet 0.5 mg PO DAILY PRN anxiety 10/21/23 10/21/23 Results & Data (ED) Vital Signs Vital Signs - 24 hr 10/21/23 10:35 10/21/23 11:55 10/21/23 12:00 Temperature 36.9 C Temperature Source Oral Pulse Rate 67 Pulse Rate [Left] 68 71 Pulse Rhythm [Left] Regular Regular Pulse Strength Normal Pulse Strength [Left] Normal Normal Respiratory Rate 18 18 20 Respiratory Effort / Characteristics Non-Labored Non-Labored Non-Labored Respiratory Depth Normal Normal Normal Respiratory Pattern Regular Regular Regular Blood Pressure 139/75 Blood Pressure [Left Arm] 127/66 117/60 Blood Pressure Mean 96 Blood Pressure Mean [Left Arm] 86 79 Blood Pressure Position Sitting Blood Pressure Position [Left Arm] Sitting Sitting Pulse Oximetry 95 98 98 Oxygen Delivery Method Room Air Room Air Room Air Sepsis Recent Fever Within 48 Hours No Sepsis New/Unexplained Change in Mental Status No Sepsis Action Taken by Nursing No Action Required 10/21/23 12:04 10/21/23 12:06 10/21/23 12:30 Temperature Temperature Source Pulse Rate 64 67 59 L Pulse Rate [Left] Pulse Rhythm [Left] Pulse Strength Pulse Strength [Left] Respiratory Rate 21 18 Respiratory Effort / Characteristics Respiratory Depth Respiratory Pattern Blood Pressure 101/43 L Blood Pressure [Left Arm] Blood Pressure Mean 62 Blood Pressure Mean [Left Arm] Blood Pressure Position Blood Pressure Position [Left Arm] Pulse Oximetry 98 98 Oxygen Delivery Method Room Air Room Air Sepsis Recent Fever Within 48 Hours Sepsis New/Unexplained Change in Mental Status Sepsis Action Taken by Nursing 10/21/23 13:01 10/21/23 13:30 10/21/23 14:01 Temperature Temperature Source Pulse Rate 62 61 65 Pulse Rate [Left] Pulse Rhythm [Left] Pulse Strength Pulse Strength [Left] Respiratory Rate 22 21 15 Respiratory Effort / Characteristics Respiratory Depth Respiratory Pattern Blood Pressure 126/56 L 127/61 113/52 L Blood Pressure [Left Arm] Blood Pressure Mean 79 83 72 Blood Pressure Mean [Left Arm] Blood Pressure Position Blood Pressure Position [Left Arm] Pulse Oximetry 96 96 97 Oxygen Delivery Method Room Air Room Air Room Air Sepsis Recent Fever Within 48 Hours Sepsis New/Unexplained Change in Mental Status Sepsis Action Taken by Nursing 10/21/23 14:30 10/21/23 15:00 10/21/23 15:00 Temperature Temperature Source Pulse Rate 62 77 Pulse Rate [Left] Pulse Rhythm [Left] Pulse Strength Pulse Strength [Left] Respiratory Rate 17 16 Respiratory Effort / Characteristics Respiratory Depth Respiratory Pattern Blood Pressure 112/56 L 147/74 H Blood Pressure [Left Arm] Blood Pressure Mean 74 83 Blood Pressure Mean [Left Arm] Blood Pressure Position Blood Pressure Position [Left Arm] Pulse Oximetry 95 Oxygen Delivery Method Room Air Sepsis Recent Fever Within 48 Hours Sepsis New/Unexplained Change in Mental Status Sepsis Action Taken by Nursing 10/21/23 15:10 10/21/23 15:20 10/21/23 15:30 Temperature Temperature Source Pulse Rate 64 62 Pulse Rate [Left] Pulse Rhythm [Left] Pulse Strength Pulse Strength [Left] Respiratory Rate 23 18 Respiratory Effort / Characteristics Respiratory Depth Respiratory Pattern Blood Pressure 102/53 L Blood Pressure [Left Arm] Blood Pressure Mean 82 Blood Pressure Mean [Left Arm] Blood Pressure Position Blood Pressure Position [Left Arm] Pulse Oximetry Oxygen Delivery Method Sepsis Recent Fever Within 48 Hours Sepsis New/Unexplained Change in Mental Status Sepsis Action Taken by Nursing 10/21/23 15:30 10/21/23 15:40 10/21/23 15:50 Temperature Temperature Source Pulse Rate 64 65 65 Pulse Rate [Left] Pulse Rhythm [Left] Pulse Strength Pulse Strength [Left] Respiratory Rate 15 18 Respiratory Effort / Characteristics Respiratory Depth Respiratory Pattern Blood Pressure Blood Pressure [Left Arm] Blood Pressure Mean Blood Pressure Mean [Left Arm] Blood Pressure Position Blood Pressure Position [Left Arm] Pulse Oximetry Oxygen Delivery Method Sepsis Recent Fever Within 48 Hours Sepsis New/Unexplained Change in Mental Status Sepsis Action Taken by Nursing Laboratory Data 10/21/23 11:52 10/21/23 11:52 Lab Results 10/21/23 10/21/23 Range/Units 11:52 Unknown WBC 6.11 (4.8-10.8) K/ul RBC 4.47 (4.20-5.40) M/uL Hgb 13.1 (12.0-16.0) g/dl Hct 40.5 (37.0-47.0) % MCV 90.6 (80.0-100.0) fL MCH 29.3 (25.0-34.0) pg MCHC 32.3 (32.0-36.0) g/dL RDW Std Deviation 46.7 H (36.4-46.3) fL RDW Coeff of Estefani 13.9 (11.5-14.5) % Plt Count 274 (130-400) K/uL MPV 9.9 (9.4-12.4) fL Immature Gran % (Auto) 0.3 % Neut % (Auto) 67.9 % Lymph % (Auto) 16.0 % [place] % (Auto) 12.8 % Eos % (Auto) 2.3 % Baso % (Auto) 0.7 % Neut # (Auto) 4.15 (1.40-6.50) K/uL Lymph # (Auto) 0.98 L (1.20-3.40) K/uL [place] # (Auto) 0.78 H (0.11-0.59) K/uL Eos # (Auto) 0.14 (0.00-0.50) K/uL Baso # (Auto) 0.04 (0.00-0.20) K/uL Immature Gran # (Auto) 0.02 (0.01-0.20) K/uL Sodium 141 (136-145) mmol/L Potassium 4.7 (3.5-5.1) mmol/L Chloride 108 H (98-107) mmol/L Carbon Dioxide 29 (21-32) mmol/L Anion Gap 4 (3-11) BUN 17 (6-23) mg/dl Creatinine 1.30 H (0.6-1.2) mg/dl Est Cr Clr Drug Dosing 25.5 ml/min Est GFR ( Amer) 43.3 ml/min Est GFR (Non-Af Amer) 37.4 ml/min BUN/Creatinine Ratio 13.1 (10-20) Glucose 113 H (70-99(Fasting)) mg/dl Lactate 1.2 (0.4-2.0) mmol/L Calcium 9.2 (8.6-10.3) mg/dl Total Bilirubin 0.5 (0.2-1.0) mg/dl AST 14 (13-39) U/L ALT 7 (7-52) U/L Alkaline Phosphatase 48 (34-104) U/L Troponin I High Sens 4.6 (0-14) pg/ml Total Protein 6.6 (6.0-8.3) gm/dl Albumin 3.4 (3.4-5.0) gm/dl Globulin 3.2 (2.5-4.0) gm/dl Albumin/Globulin Ratio 1.1 (0.9-2) TSH 2.607 (0.300-4.500) uIu/ml Urine Color Yellow Urine Appearance Turbid A (Clear) Urine pH 8.5 H (4.5-7.5) Ur Specific [place] 1.014 (1.000-1.030) Urine Protein Trace H (Negative) Urine Glucose (UA) Negative (Negative) Urine Ketones Negative (Negative) Urine Blood 1+ H (Negative) Urine Nitrite Positive A (Negative) Urine Bilirubin Negative (Negative) Urine Urobilinogen Negative (Negative) Ur Leukocyte Esterase 3+ H (Negative) Urine WBC (Auto) >50 H (0-5) /hpf Urine RBC (Auto) 3-5 H (0-2) /hpf U Hyaline Cast (Auto) 0-2 (0-2) /lpf U Epithel Cells (Auto) 0-2 (0-2) /hpf Urine Bacteria (Auto) 4+ H (None Seen) SARS-CoV-2 (PCR) NEGATIVE (Negative) Influenza Type A (PCR) Negative (Neg) Influenza Type B (PCR) Negative (Neg) RSV (RT-PCR) Negative (Neg) Administered Medications Parenteral Electrolytes (Plasma-Lyte A Ph 7.4) 1,000 mls @ 80 mls/hr IV .[id number] TIERA Stop: 10/22/23 02:44 Last Admin: 10/21/23 14:25 Dose: 80 mls/hr Documented By: FL Discontinued Medications Sodium Chloride (Nss) 500 mls @ 999 mls/hr IV .Q31M ONE Stop: 10/21/23 11:48 Last Infusion: 10/21/23 12:40 Dose: Infused Documented By: Admin: 10/21/23 12:09 Dose: 999 mls/hr Documented By: FL Ceftriaxone Sodium (Rocephin) 2,000 mg in 50 mls @ 100 mls/hr IV NOW STA Stop: 10/21/23 13:40 Last Infusion: 10/21/23 14:05 Dose: Infused Documented By: Admin: 10/21/23 13:24 Dose: 100 mls/hr Documented By: FL Sodium Chloride (Nss) 500 mls @ 999 mls/hr IV .Q31M ONE Stop: 10/21/23 13:58 Last Infusion: 10/21/23 14:05 Dose: Infused Documented By: Admin: 10/21/23 13:37 Dose: 999 mls/hr Documented By: FL Ioversol (Optiray 320 100ml) 92 ml IV ONCE ONE Stop: 10/21/23 12:55 Last Admin: 10/21/23 12:54 Dose: 92 ml Documented By: [facility] Imaging Data Radiologist's Impression: Chest X-Ray 10/21/23 10:57 XR chest 1V portable CLINICAL HISTORY: weakness TECHNIQUE: Single frontal radiograph of the chest was obtained. Comparison: None available at the time of this dictation. FINDINGS: No lines and tubes are seen. Calcified aortic knob is seen. The lungs are clear. No evidence of pleural effusion or pneumothorax. IMPRESSION: No acute chest disease. ACT 112: Negative or not required by law. Electronically signed by: Narayan Garber M.D. 10/21/2023 12:00 PM Abdomen/Pelvis CT 10/21/23 11:[address] WITH IV CONTRAST CT DOSE: 642.25 mGy.cm HISTORY: dysuria, hx stones, dementia, weak TECHNIQUE: Multiaxial CT images of the abdomen and pelvis were performed following the use of intravenous contrast. A dose lowering technique was utilized adhering to the principles of ALARA. FINDINGS: Calcified granuloma again noted at the right lower lobe. No pneumoperitoneum. No pneumatosis. Old, healed fractures again noted within the mid sacrum. Moderate super endplate compression fracture at L1, unchanged. The heart remains mildly enlarged. Multiple calcified granuloma again noted within the liver and spleen. The main portal vein is patent. The pancreas and adrenal glands are unremarkable. Calcified plaque within the normal caliber abdominal aorta. No retroperitoneal or pelvic lymphadenopathy. No pelvic free fluid. Normal right kidney. There are few small stones within the lower pole of the left kidney. This has improved in the interval. Stable 3 cm cyst within the left kidney. Mild heterogeneous enhancement within the left kidney with mild perinephric edema. This likely represents a pyelonephritis. There is also urothelial thickening within the left renal collecting system and left ureter consistent with a pyelitis. No left-sided hydronephrosis or ureteral stones identified. There are few punctate stones layering within the left posterior bladder adjacent to the ureterovesical junction. However, these do not appear to be within the ureterovesical junction. Bladder wall thickening with adjacent fat stranding consistent with a cystitis. Calcified uterine fibroids again noted. There is a small left ovarian cyst, unchanged. Colonic diverticulosis. No evidence for acute diverticulitis. No bowel wall thickening or obstruction. IMPRESSION: 1. Heterogeneous enhancement within the left kidney with urothelial thickening within the left renal pelvis and left ureter. This is consistent with a pyelonephritis/pyelitis. Recommend correlation with urinalysis. 2. Bladder wall thickening with adjacent fat stranding consistent with a cystitis. 3. Left-sided nephrolithiasis as improved. No ureteral stones. No hydronephrosis. 4. There are small bladder calculi noted. 5. No bowel wall thickening or obstruction. 6. Additional findings as described above. ACT 112: Negative or not required by law. Electronically signed by: Derek Braden M.D. 10/21/2023 1:20 PM Discharge Plan Visit Data Chief Complaint: Urinary Symptoms Stated Complaint: CONFUSION, URINARY SX ED Provider: Shaheed Gordon Discharge Problem: Pyelonephritis, Dementia, Weakness Patient Disposition: Being Evaluated by Hospitalist Forms Stand Alone Forms: My [facility] Prescriptions Prescriptions: No Action donepezil 10 mg Tablet 10 mg PO .8PM pantoprazole 40 mg Tablet,Delayed Release (Dr/Ec) 40 mg PO .@8AM escitalopram oxalate 10 mg Tablet 10 mg PO .@8AM melatonin 5 mg Tablet 5 mg PO .@8PM cholecalciferol (vitamin D3) [Vitamin D3] 125 mcg (5,000 unit) Tablet 125 mcg PO .@8AM potassium chloride 20 mEq packet 20 meq PO .@8AM,5PM lorazepam 0.5 mg tablet 1 mg PO HS PRN (Reason: Anxiety) acetaminophen 325 mg Tablet 650 mg PO Q6H MDD 3g/24hr PRN (Reason: Pain) calcium carbonate-vitamin D3 [Calcium 600 + D(3)] 600 mg-10 mcg (400 unit) Tablet 1 tab PO .@8AM lorazepam 0.5 mg tablet 0.5 mg PO DAILY PRN (Reason: anxiety ) Eliquis 2.5 mg tablet 2.5 mg PO .@8AM,8PM Referrals Referrals: Chuy Mcdonald [Primary Care Provider] -
--- NOTE | 2023-10-21 12:02 | XRay Report ---
XR chest 1V portable CLINICAL HISTORY: weakness TECHNIQUE: Single frontal radiograph of the chest was obtained. Comparison: None available at the time of this dictation. FINDINGS: No lines and tubes are seen. Calcified aortic knob is seen. The lungs are clear. No evidence of pleur al effusion or pneumothorax. IMPRESSION: No acute chest disease. ACT 112: Negative or not required by law. Electronically signed by: Narayan Garber M.D. 10/21/2023 12:00 PM
[2023-10-21] MEDS: SODIUM CHLORIDE 0.9% 500 ML IV ONE ×2 (12:09→13:37)
[2023-10-21 12:12] LABS: Basophils # (auto) 0.04 K/uL (0.00-0.20); Basophils % (auto) 0.7 %; Eosinophils # (auto) 0.14 K/uL (0.00-0.50); Eosinophils % (auto) 2.3 %; Hematocrit (blood only) 40.5 % (37.0-47.0); Hemoglobin 13.1 g/dl (12.0-16.0); Immature Granulocytes # (auto) 0.02 K/uL (0.01-0.20); Immature Granulocytes % (auto) 0.3 %; Lymphocytes # (auto) 0.98 K/uL (1.20-3.40); Mean Corpuscular Hemoglobin 29.3 pg (25.0-34.0); Mean Corpuscular Hgb Conc 32.3 g/dL (32.0-36.0); Mean Corpuscular Volume 90.6 fL (80.0-100.0); Mean Platelet Volume 9.9 fL (9.4-12.4); Monocytes # (auto) 0.78 K/uL (0.11-0.59); Monocytes % (auto) 12.8 %; Neutrophils # (auto) 4.15 K/uL (1.40-6.50); Neutrophils % (auto) 67.9 %; Platelet Count 274 K/uL (130-400); RDW Coefficient of Variation 13.9 % (11.5-14.5); RDW Standard Deviation 46.7 fL (36.4-46.3); Red Blood Count 4.47 M/uL (4.20-5.40); White Blood Count 6.11 K/ul (4.8-10.8)
[2023-10-21 12:24] LABS: Albumin Globulin Ratio 1.1 (0.9-2); Albumin Level 3.4 gm/dl (3.4-5.0); BUN Creatinine Ratio 13.1 (10-20); Bilirubin,Total 0.5 mg/dl (0.2-1.0); Calcium 9.2 mg/dl (8.6-10.3); Creatinine Clr Calc Pharmacy 25.5 ml/min; Est GFR (African American) 43.3 ml/min; Est GFR (Non-African American) 37.4 ml/min; Globulin 3.2 gm/dl (2.5-4.0); Potassium 4.7 mmol/L (3.5-5.1); Total Protein 6.6 gm/dl (6.0-8.3)
[2023-10-21 12:30] LABS: Troponin I High Sensitivity 4.6 pg/ml (0-14)
[2023-10-21 12:39] LABS: Thyroid Stimulating Hormone 2.607 uIu/ml (0.300-4.500)
[2023-10-21] MEDS: OPTIRAY 320 100ml IV ONE (12:54)
[2023-10-21 12:56] LABS: Appearance Urine Turbid (Clear); Bacteria Urine Automated 4+ (None Seen); Bilirubin Urine Negative (Negative); Blood Urine 1+ (Negative); Cast Urine Automated 0-2 /lpf (0-2); Color Urine Yellow; Epithelial Cell Urine Auto 0-2 /hpf (0-2); Glucose Urine UA Negative (Negative); Ketones Urine Negative (Negative); Leukocyte Esterase Urine 3+ (Negative); Nitrite Urine Positive (Negative); Protein Urine Trace (Negative); Specific Gravity Urine 1.014 (1.000-1.030); Urobilinogen Urine Negative (Negative); WBC Urine Automated >50 /hpf (0-5); pH Urine 8.5 (4.5-7.5)
[2023-10-21 13:03] LABS: Influenza A virus by PCR Negative (Neg); Influenza B virus by PCR Negative (Neg); RSV by PCR Negative (Neg); SARS CoV2 RNA(COVID-19) Ceph NEGATIVE (Negative)
--- NOTE | 2023-10-21 13:22 | CT Scan Report ---
ABDOMEN AND PELVIS CT WITH IV CONTRAST CT DOSE: 642.25 mGy.cm HISTORY: dysuria, hx stones, dementia, weak TECHNIQUE: Multiaxial CT images of the abdomen and pelvis were performed following the use of intrave nous contrast. A dose lowering technique was utilized adhering to the principles of ALARA. FINDINGS: Calcified granuloma again noted at the right lower lobe. No pneumoperitoneum. No pneumatosi s. Old, healed fractures again noted within the mid sacrum. Moderate super endplate compression fract ure at L1, unchanged. The heart remains mildly enlarged. Multiple calcified granuloma again noted wit hin the liver and spleen. The main portal vein is patent. The pancreas and adrenal glands are unremar kable. Calcified plaque within the normal caliber abdominal aorta. No retroperitoneal or pelvic lymph adenopathy. No pelvic free fluid. Normal right kidney. There are few small stones within the lower po le of the left kidney. This has improved in the interval. Stable 3 cm cyst within the left kidney. Mi ld heterogeneous enhancement within the left kidney with mild perinephric edema. This likely represen ts a pyelonephritis. There is also urothelial thickening within the left renal collecting system and left ureter consistent with a pyelitis. No left-sided hydronephrosis or ureteral stones identified. T here are few punctate stones layering within the left posterior bladder adjacent to the ureterovesica l junction. However, these do not appear to be within the ureterovesical junction. Bladder wall thick ening with adjacent fat stranding consistent with a cystitis. Calcified uterine fibroids again noted. There is a small left ovarian cyst, unchanged. Colonic diverticulosis. No evidence for acute diverti culitis. No bowel wall thickening or obstruction. IMPRESSION: 1. Heterogeneous enhancement within the left kidney with urothelial thickening within the left renal pelvis and left ureter. This is consistent with a pyelonephritis/pyelitis. Recommend correlation with urinalysis. 2. Bladder wall thickening with adjacent fat stranding consistent with a cystitis. 3. Left-sided nephrolithiasis as improved. No ureteral stones. No hydronephrosis. 4. There are small bladder calculi noted. 5. No bowel wall thickening or obstruction. 6. Additional findings as described above. ACT 112: Negative or not required by law. Electronically signed by: Derek Braden M.D. 10/21/2023 1:20 PM
[2023-10-21] MEDS: cefTRIAXone SODIUM 2,000 MG/50 ML BAG IV STA (13:24)
--- NOTE | 2023-10-21 13:28 | History & Physical Report ---
Date of Service October 21, 2023 Assessment & Plan (1) Pyelonephritis: Plan: Urinary symptoms x 1 week with increased confusion No leukocytosis; however, patient is from a personal correction ([facility]) and they reported low-grade intermittent fevers up to 99 F A/P CT revealed findings consistent with pyelonephritis/pyelitis; no obstructive stones UA positive for bacteria on arrival Blood culture ordered, pending Past urine culture on 07/14/2023 revealed sensitivity to Rocephin Rocephin 2000 mg in the ED Will continue Rocephin 1000mg IV q24h Follow current UCx Acetaminophen as needed for pain/fever A.m. CBC, BMP, Mag (2) MALINA (acute kidney injury): Plan: Mild; likely secondary to UTI BUN 17, creatinine 1.30 (baseline ~1.00), and EGFR 37.4 Avoid nephrotoxic agents for possible IVF resuscitation with Plasma-Lyte at 80mL/hr x 1 (3) Dementia: Plan: Patient is a poor historian at baseline Continue donepezil (4) Anxiety: Plan: Continue escitalopram, lorazepam Plan Disposition: Admit to [facility] DNR/DNI Regular Diet VTE: Previously on Eliquis History of Present Illness Chief Complaint: Urinary symptoms Primary Care Provider: Chuy Morris is a 83yo female with PMH of dementia, HTN, A-fib, kidney stones, recurrent UTI, and anxiety. She presented via EMS from her personal correction ([facility]) for urinary symptoms x 1 week, as well as increased confusion per nursing staff. Patient's son (Jc) is at bedside and provides most of the history. She has been having intermittent low-grade fevers around 99 F at the personal-correction; son is unsure if she had a fever this morning. She has not been taking anything additional for the fevers. Clinically, patient denies all urinary symptoms; no burning with urination, flank pain, back pain, or suprapubic tenderness. She denies any recent falls, injuries, or trauma to the head/neck/abdomen/pelvis. She is a poor historian at baseline; not oriented to location/month. She denies smoking, tobacco, alcohol use. Patient's son reports that she took all of her regular morning medications today; no recent change in medications. Vital stable at time of admission. ED course: NSS 500 mL IV Rocephin 2000 mg IV ROS: Patient endorses intermittent fevers. Patient denies chills, night-sweats, body aches, dizziness, lighthteadness, chest pain, SOB, abdominal pain, N/V/D, back pain, flank pain, urinary s/s, burning with urination, blood in the urine/stool, suprapubic tenderness, or pain/numbness/tingling in the arms or legs. Allergies Allergy/AdvReac Type Severity Reaction Status Date / Time No Known Allergies Allergy Unverified 08/10/23 12:54 Home Medications Medication Instructions Recorded Confirmed Type cholecalciferol (vitamin D3) 125 125 mcg PO .@8AM 04/05/23 10/21/23 History mcg (5,000 unit) tablet (Vitamin D3) donepezil 10 mg tablet 10 mg PO .8PM 04/05/23 10/21/23 History escitalopram oxalate 10 mg tablet 10 mg PO .@8AM 04/05/23 10/21/23 History melatonin 5 mg tablet 5 mg PO .@8PM 04/05/23 10/21/23 History pantoprazole 40 mg tablet,delayed 40 mg PO .@8AM 04/05/23 10/21/23 History release lorazepam 0.5 mg tablet 1 mg PO HS PRN Anxiety 06/10/23 10/21/23 History potassium chloride 20 mEq oral 20 meq PO .@8AM,5PM 06/10/23 10/21/23 History packet acetaminophen 325 mg tablet 650 mg PO Q6H PRN Pain 08/10/23 10/21/23 History calcium carbonate 600 mg-vitamin 1 tab PO .@8AM 08/10/23 10/21/23 History D3 10 mcg (400 unit) tablet (Calcium 600 + D(3)) apixaban 2.5 mg tablet (Eliquis) 2.5 mg PO .@8AM,8PM 10/21/23 10/21/23 History lorazepam 0.5 mg tablet 0.5 mg PO DAILY PRN anxiety 10/21/23 10/21/23 History Past Med/Surg History Medical History Sepsis due to UTI per 07/19/23 urology records (admitted to [facility])- discharged on abx HTN (hypertension) Atrial fibrillation On Eliquis per records On anticoagulant therapy a fib reason for Eliquis per records Poor historian pt's step son ([place]ola) provided hx GERD (gastroesophageal reflux disease) Kidney stones Anxiety Dementia Surgical History S/P ureteral stent placement History of cystoscopy History of appendectomy History of open reduction and internal fixation (ORIF) procedure Social History Smoking Status: Never smoker Second Hand Exposure: No; Do You Dip or Chew Tobacco: No; Hx Alcohol Use: No Hx Substance Use: No Preferred Language: Georgian Communication Ability: Effective Funeral Home Director Required: No Beliefs That Will Affect Care: None Current Living Situation: Retirement Current Living Situation Comment: [facility] Feels Safe at Home: Yes Assistive Devices: Walker Review of Systems Review of Systems: See HPI above Physical Exam Physical Exam: General: no acute distress; pleasant affect; non-toxic appearing; well-nourished ; cooperative; SpO2 96% on RA HEENT: normocephalic, atraumatic; no scleral icterus; PERRLA; moist mucus membrane; vision and hearing intact Neck: supple; trachea midline Skin: warm, dry without signs of tenting; no cyanosis; no rashes, bruising, lesions, or erythema noted CV: chest wall NTP; RRR; S1/S2 normal; no murmurs/rubs/gallops; pulses intact and symmetric at radial, DP, and PT Lungs: no acute respiratory distress; symmetrical chest wall expansion; clear breath sounds across all lung luke w/o adventitious sounds; no wheezing ABD: Soft, NTP; BS present; no rebound/guarding; no distention; negative for flank pain; negative CVA tenderness : Negative suprapubic tenderness MSK: no tics or fasciculations; no edema noted in the LEs b/l, nonerythematous Neuro: Oriented to name/, not oriented to location/purpose/month; fluent speech; no focal deficits; sensation grossly intact in the LEs b/l Results & Data Results & Data Vital Signs (Past 12 Hours) Vital Signs Temp Pulse Pulse Resp BP BP Pulse Ox 10/21/23 13:01 62 22 126/56 L 96 10/21/23 12:30 59 L 18 101/43 L 98 10/21/23 12:06 67 10/21/23 12:04 64 21 98 10/21/23 12:00 71 20 117/60 98 10/21/23 11:55 68 18 127/66 98 10/21/23 10:35 36.9 C 67 18 139/75 95 O2 Del Method 10/21/23 13:01 Room Air 10/21/23 12:30 Room Air 10/21/23 12:06 10/21/23 12:04 Room Air 10/21/23 12:00 Room Air 10/21/23 11:55 Room Air 10/21/23 10:35 Room Air Laboratory Results Abnormal lab results 10/21/23 10/21/23 Range/Units 11:52 Unknown RDW Std Deviation 46.7 H (36.4-46.3) fL Lymph # (Auto) 0.98 L (1.20-3.40) K/uL [place] # (Auto) 0.78 H (0.11-0.59) K/uL Chloride 108 H (98-107) mmol/L Creatinine 1.30 H (0.6-1.2) mg/dl Glucose 113 H (70-99(Fasting)) mg/dl Urine Appearance Turbid A (Clear) Urine pH 8.5 H (4.5-7.5) Urine Protein Trace H (Negative) Urine Blood 1+ H (Negative) Urine Nitrite Positive A (Negative) Ur Leukocyte Esterase 3+ H (Negative) Urine WBC (Auto) >50 H (0-5) /hpf Urine RBC (Auto) 3-5 H (0-2) /hpf Urine Bacteria (Auto) 4+ H (None Seen) Diagnostic Findings Chest X-Ray 10/21/23 10:57 XR chest 1V portable CLINICAL HISTORY: weakness TECHNIQUE: Single frontal radiograph of the chest was obtained. Comparison: None available at the time of this dictation. FINDINGS: No lines and tubes are seen. Calcified aortic knob is seen. The lungs are clear. No evidence of pleural effusion or pneumothorax. IMPRESSION: No acute chest disease. ACT 112: Negative or not required by law. Electronically signed by: Narayan Garber M.D. 10/21/2023 12:00 PM Abdomen/Pelvis CT 10/21/23 11:[address] WITH IV CONTRAST CT DOSE: 642.25 mGy.cm HISTORY: dysuria, hx stones, dementia, weak TECHNIQUE: Multiaxial CT images of the abdomen and pelvis were performed following the use of intravenous contrast. A dose lowering technique was utilized adhering to the principles of ALARA. FINDINGS: Calcified granuloma again noted at the right lower lobe. No pneumoperitoneum. No pneumatosis. Old, healed fractures again noted within the mid sacrum. Moderate super endplate compression fracture at L1, unchanged. The heart remains mildly enlarged. Multiple calcified granuloma again noted within the liver and spleen. The main portal vein is patent. The pancreas and adrenal glands are unremarkable. Calcified plaque within the normal caliber abdominal aorta. No retroperitoneal or pelvic lymphadenopathy. No pelvic free fluid. Normal right kidney. There are few small stones within the lower pole of the left kidney. This has improved in the interval. Stable 3 cm cyst within the left kidney. Mild heterogeneous enhancement within the left kidney with mild perinephric edema. This likely represents a pyelonephritis. There is also urothelial thickening within the left renal collecting system and left ureter consistent with a pyelitis. No left-sided hydronephrosis or ureteral stones identified. There are few punctate stones layering within the left posterior bladder adjacent to the ureterovesical junction. However, these do not appear to be within the ureterovesical junction. Bladder wall thickening with adjacent fat stranding consistent with a cystitis. Calcified uterine fibroids again noted. There is a small left ovarian cyst, unchanged. Colonic diverticulosis. No evidence for acute diverticulitis. No bowel wall thickening or obstruction. IMPRESSION: 1. Heterogeneous enhancement within the left kidney with urothelial thickening within the left renal pelvis and left ureter. This is consistent with a pyelonephritis/pyelitis. Recommend correlation with urinalysis. 2. Bladder wall thickening with adjacent fat stranding consistent with a cystitis. 3. Left-sided nephrolithiasis as improved. No ureteral stones. No hydronephrosis. 4. There are small bladder calculi noted. 5. No bowel wall thickening or obstruction. 6. Additional findings as described above. ACT 112: Negative or not required by law. Electronically signed by: Derek Braden M.D. 10/21/2023 1:20 PM ECG Additional Comments: ECG revealed normal sinus rhythm at 63 bpm; QTc 433 Code Status & VTE Plan Code Status DNR/DNI VTE Prophylaxis Plan VTE Prophylaxis will be ordered: Yes Supervising Physician Co-Signing Physician Notes Patient seen and examined, chart reviewed, case discussed with Derek Montes and I agree with the assessment and plan as above except as otherwise noted Labs and images reviewed Alexandra is an 83-year-old female with a history of weakness, dementia, lumbar compression fractures with increased weakness and difficulty transferring who on ER evaluation was found to have suspected UTI. CT is with left renal thickening consistent with pyelonephritis/pyelitis, and bladder wall thickening consistent with cystitis. No obstructive stones are noted, small bladder calculi are seen. UA is infected appearing. COVID/flu/RSV are negative. Past UCx are positive for E. coli with resistance to ampicillin, Unasyn, ciprofloxacin but sensitive to Rocephin. Rocephin in the ER. She does not meet sepsis criteria at time of admission. Has mild prerenal azotemia versus MALINA, baseline creatinine is less than 1 admitting creatinine is 1.3. She has received 500 cc boluses x 2, no history of heart failure. 1 additional liter being given at maintenance and p.o. encouraged. BMP trended. On bedside assessment she has no pain and is nondistressed. Abdomen is soft and nontender. She has no CVA tenderness. Lungs are clear. Heart rate is regular. She is a limited historian. UTI, complicated with left pyelonephritis Nontoxic, not septic. UA infected appearing. No obstructive stones Agree with Rocephin daily; some resistance on E. coli cultures in the past but all of been sensitive to Rocephin. Cefdinir reasonable oral target, follow UCx for speciation/sensitivities CBC/BMP daily MALINA versus prerenal azotemia Received fluids as noted with an additional 1 L at maintenance while p.o. is encouraged Trend BMP daily, renally adjust medications as needed Agree with the management of chronic issues as above PG Care Time/CCT Total # of Minutes Spent Total Time Spent with Patient: Total time spent is greater than 50% in coordination of care (as documented) at patient's floor/unit and/or counseling patient: C[place] [address] INT INP/OBS CARE 2/55MIN Patient Type Established History Comprehensive Exam Comprehensive Medical Decision Making Moderate Complexity Diagnoses Pyelonephritis N12 MALINA (acute kidney injury) N17.9 Dementia F03.90 Dementia behavioral or psychological symptom: unspecified whether behavioral, psychotic, or mood disturbance or anxiety Dementia severity: unspecified severity Dementia type: unspecified type Anxiety F41.9 (3) Dementia Dementia behavioral or psychological symptom: unspecified whether behavioral, psychotic, or mood disturbance or anxiety Dementia severity: unspecified severity Dementia type: unspecified type Qualified Code(s): F03.90 - Unspecified dementia, unspecified severity, without behavioral disturbance, psychotic disturbance, mood disturbance, and anxiety
[2023-10-21] MEDS: PLASMA-LYTE A 1,000 ML IV SCH (14:25)
[2023-10-21] MEDS ORDERED: ONDANSETRON INJ 2 MG/ML 2 ML VIAL IV PRN (16:35)
[2023-10-21] MEDS ORDERED: LORazepam 0.5 MG TAB PO PRN (16:35)
[2023-10-21] MEDS ORDERED: ACETAMINOPHEN 325 MG TAB PO PRN (16:35)
[2023-10-21] MEDS: POTASSIUM CHLORIDE PWD 20 MEQ PACK PO SCH (18:31)
[2023-10-21] MEDS: DONEPEZIL HCL 10 MG TAB PO SCH (21:36)
[2023-10-21] MEDS: APIXABAN 2.5 MG TAB PO SCH (21:36)
[2023-10-21] MEDS: MELATONIN 3 MG TAB PO SCH (21:36)
[2023-10-22 07:31] LABS: Basophils # (auto) 0.05 K/uL (0.00-0.20); Basophils % (auto) 0.6 %; Eosinophils # (auto) 0.04 K/uL (0.00-0.50); Eosinophils % (auto) 0.5 %; Hematocrit (blood only) 36.1 % (37.0-47.0); Hemoglobin 11.7 g/dl (12.0-16.0); Immature Granulocytes # (auto) 0.03 K/uL (0.01-0.20); Immature Granulocytes % (auto) 0.4 %; Lymphocytes # (auto) 0.99 K/uL (1.20-3.40); Lymphocytes % (auto) 12.8 %; Mean Corpuscular Hemoglobin 28.9 pg (25.0-34.0); Mean Corpuscular Hgb Conc 32.4 g/dL (32.0-36.0); Mean Corpuscular Volume 89.1 fL (80.0-100.0); Mean Platelet Volume 10.1 fL (9.4-12.4); Monocytes # (auto) 0.87 K/uL (0.11-0.59); Monocytes % (auto) 11.3 %; Neutrophils # (auto) 5.75 K/uL (1.40-6.50); Neutrophils % (auto) 74.4 %; Platelet Count 234 K/uL (130-400); RDW Coefficient of Variation 14.1 % (11.5-14.5); RDW Standard Deviation 45.8 fL (36.4-46.3); Red Blood Count 4.05 M/uL (4.20-5.40); White Blood Count 7.73 K/ul (4.8-10.8)
[2023-10-22 08:04] LABS: BUN Creatinine Ratio 10.8 (10-20); Calcium 8.5 mg/dl (8.6-10.3); Creatinine Clr Calc Pharmacy 29.9 ml/min; Est GFR (African American) 52.4 ml/min; Est GFR (Non-African American) 45.2 ml/min; Potassium 4.4 mmol/L (3.5-5.1)
[2023-10-22] MEDS: PANTOprazole 40 MG TAB PO SCH (08:07)
[2023-10-22] MEDS: ESCITALOPRAM OXALATE 10 MG TAB PO SCH (08:08)
--- NOTE | 2023-10-22 11:09 | Hospitalist Progress Note ---
Date of Service October 22, 2023 Assessment & Plan (1) Pyelonephritis: Plan: Urinary symptoms x 1 week with increased confusion, reported fevers up to 99 F at [facility] () CT A/P:findings consistent with pyelonephritis/pyelitis; no obstructive stones Blood culture: no growth at 24 hours Urine Culture: Gram negative Bacilli Continue Rocephin, first day 10/20 PT/OT WBC improving (2) MALINA (acute kidney injury): Plan: Mild; likely secondary to UTI on admission BUN 17, creatinine 1.30 (baseline ~1.00), and EGFR 37.4 Received Plasma-Lyte x 1L Improving Cr 1.11 this morning AM BMP (3) Dementia: Plan: Patient is a poor historian at baseline Continue donepezil (4) Anxiety: Plan: Continue escitalopram, prn lorazepam Plan Disposition: continued inpatient stay VTE: Home Rosalia son updated by phone Admission and Anticipated Discharge Date Admission Date: October 21, 2023 Supervising Physician Co-Signing Physician Notes Attending Attestation - Chart reviewed, care plan d/w STUART Wilkins. I agree w/ the fox components of her documentation. Adi García MD Subjective Patient seen lying in bed, pleasantly confused. Alert to self only Denies any acute complaints. Review of Systems Review of Systems: All systems reviewed & are unremarkable except as noted in Subjective Physical Exam Physical Exam: General: NAD, lying in bed VS as above Resp: normal respiratory effort, lungs clear to auscultation CV: RRR, no murmur, Abd: soft, non tender, no hepatosplenomegaly Extremities: Moves all extremities, no edema. Right thigh bruise, non tender to palpation, does not appear. Neuro: A&O to self only , Results & Data Results & Data Vital Signs (Past 12 Hours) Vital Signs Temp Pulse Resp BP Pulse Ox O2 Del Method 10/22/23 08:01 36.9 C 59 L 16 100/62 96 Room Air Laboratory Results CBC, chemistry and mag reviewed PG Care Time/CCT Total # of Minutes Spent Total Time Spent with Patient: Total time spent is greater than 50% in coordination of care (as documented) at patient's floor/unit and/or counseling patient: Coding Level of Care Code 72548 SUB INP/OBS CARE 2/35MIN Diagnoses Pyelonephritis N12 MALINA (acute kidney injury) N17.9 Dementia F03.90 Anxiety F41.9
[2023-10-22] MEDS: cefTRIAXone SODIUM 1,000 MG in DEXTROSE 5 % MINI-B 50 ML IV SCH (13:28)
[2023-10-22] MEDS ORDERED: cefTRIAXone SODIUM 2,000 MG in DEXTROSE 5 % MINI-B 50 ML IV SCH (14:00)
--- NOTE | 2023-10-22 23:59 | Electrocardiogram Report ---
Test Reason : Blood Pressure : / mmHG Vent. Rate : 063 BPM Atrial Rate : 063 BPM P-R Int : 188 ms QRS Dur : 080 ms QT Int : 424 ms P-R-T Axes : 056 -41 013 degrees QTc Int : 433 ms Normal sinus rhythm Left axis deviation T wave abnormality, consider anterior ischemia Abnormal ECG When compared with ECG of 13-AUG-2023 14:46, Nonspecific T wave abnormality no longer evident in Lateral leads Confirmed by Aldair Mackey ([id number]) on 10/22/2023 11:59:14 PM Referred By: Confirmed By:Aldair Mackey
[2023-10-23 06:25] LABS: Basophils # (auto) 0.04 K/uL (0.00-0.20); Basophils % (auto) 0.5 %; Eosinophils # (auto) 0.14 K/uL (0.00-0.50); Eosinophils % (auto) 1.6 %; Hematocrit (blood only) 38.7 % (37.0-47.0); Hemoglobin 12.6 g/dl (12.0-16.0); Immature Granulocytes # (auto) 0.07 K/uL (0.01-0.20); Immature Granulocytes % (auto) 0.8 %; Lymphocytes # (auto) 1.18 K/uL (1.20-3.40); Lymphocytes % (auto) 13.6 %; Mean Corpuscular Hemoglobin 29.3 pg (25.0-34.0); Mean Corpuscular Hgb Conc 32.6 g/dL (32.0-36.0); Mean Platelet Volume 9.8 fL (9.4-12.4); Monocytes # (auto) 0.76 K/uL (0.11-0.59); Monocytes % (auto) 8.7 %; Neutrophils % (auto) 74.8 %; Platelet Count 266 K/uL (130-400); RDW Coefficient of Variation 13.8 % (11.5-14.5); RDW Standard Deviation 45.3 fL (36.4-46.3); White Blood Count 8.69 K/ul (4.8-10.8)
[2023-10-23 06:44] LABS: BUN Creatinine Ratio 11.2 (10-20); Calcium 8.8 mg/dl (8.6-10.3); Est GFR (African American) 54.8 ml/min; Est GFR (Non-African American) 47.3 ml/min; Potassium 4.7 mmol/L (3.5-5.1)
--- NOTE | 2023-10-23 08:41 | Hospitalist Progress Note ---
Date of Service October 23, 2023 Assessment & Plan (1) Pyelonephritis: Plan: Urinary symptoms x 1 week with increased confusion, reported fevers up to 99 F at [facility] () CT A/P:findings consistent with pyelonephritis/pyelitis; no obstructive stones Blood culture: no growth at 24 hours Urine Culture: Gram negative Bacilli Rocephin 10/20 and 10/21. Will convert to Ciprofloxacin PO for a total of 10 days of treatment Continue PT/OT at [facility] (2) MALINA (acute kidney injury): Plan: Mild; likely secondary to UTI on admission BUN 17, creatinine 1.30 (baseline ~1.00), and EGFR 37.4 Received Plasma-Lyte x 1L Improving Cr 1.07 this morning (3) Dementia: Plan: Very pleasant Patient is a poor historian at baseline Continue donepezil (4) Anxiety: Plan: Continue escitalopram, prn lorazepam Plan Disposition: Discharge back to [facility] personal long-term today VTE: Home [place] CM contacted son who will provide transportation Admission and Anticipated Discharge Date Admission Date: October 22, 2023 Subjective Attending: Dr. García 83-year-old female admitted 10/21/2023 with UTI. Today is day #3 of ceftriaxone. Blood cultures negative x 2. Urine culture is pansensitive to Citrobacter freundii. No drug allergies listed. Can convert to oral antibiotics today. Renal dose of Cipro since GFR 29.7. QtC [address] A/P Heterogeneous enhancement within the left kidney with urothelial thickening within the left renal pelvis and left ureter. This is consistent with a pyelonephritis/pyelitis. Afebrile. Cumulative I&Os negative 2100mL Patient with no abdominal pain. No n/v/d. Denies fever. No acute complaints. Resident of a [facility]. pt is a resident of [facility]. at baseline pt is independent with her walker, She is not incontinent. Patient with baseline orientation is just to self. Pt does require assist with bathing and dressing. PT/OT evals appreciated, pt did go to SNF during last visit for same dx. CM spoke with Faye at [facility], shes states pt must be able to ambulate to return to [facility]. Per OT pt is able to ambulate with contact guard. pt is able to return over the weekend, just let [place] know she is returning ahead of time ([phone]). CM will need to contact pt's son Jc to provide transport at discharge. Results & Data Results & Data Vital Signs (Past 12 Hours) Vital Signs Temp Pulse Resp BP Pulse Ox O2 Del Method 10/23/23 07:21 37.4 C 55 L 16 135/63 93 Room Air Laboratory Results 10/23/23 05:45 10/22/23 06:45 Microbiology 10/21/23 Unknown Urine Culture - Preliminary Urine,Clean Catch Citrobacter freundii 10/21/23 11:15 Aerobic Blood Culture - Preliminary Blood No growth in Aerobic bottle after 24 hours. Anaerobic Blood Culture - Final 10/21/23 11:20 Aerobic Blood Culture - Preliminary Blood No growth in Aerobic bottle after 24 hours. Anaerobic Blood Culture - Preliminary No growth in Anaerobic bottle after 24 hours. PG Care Time/CCT Total # of Minutes Spent Total Time Spent with Patient: Total time spent is greater than 50% in coordination of care (as documented) at patient's floor/unit and/or counseling patient: 35 minutes Coding Level of Care Code None Diagnoses Pyelonephritis N12 MALINA (acute kidney injury) N17.9 Dementia F03.90 Anxiety F41.9 Comment See discharge summary
[2023-10-23] MEDS: CIPROFLOXACIN 500 MG TAB PO SCH (11:54)
--- NOTE | 2023-10-23 12:13 | Discharge Summary ---
Date of Service October 23, 2023 Admission HPI Per Admitting Provider Alexandra is a 83yo female with PMH of dementia, HTN, A-fib, kidney stones, recurrent UTI, and anxiety. She presented via EMS from her personal snf () for urinary symptoms x 1 week, as well as increased confusion per nursing staff. Patient's son (Jc) is at bedside and provides most of the history. She has been having intermittent low-grade fevers around 99 F at the personal-snf; son is unsure if she had a fever this morning. She has not been taking anything additional for the fevers. Clinically, patient denies all urinary symptoms; no burning with urination, flank pain, back pain, or suprapubic tenderness. She denies any recent falls, injuries, or trauma to the head/neck/abdomen/pelvis. She is a poor historian at baseline; not oriented to location/month. She denies smoking, tobacco, alcohol use. Patient's son reports that she took all of her regular morning medications today; no recent change in medications. Vital stable at time of admission. ED course: NSS 500 mL IV Rocephin 2000 mg IV ROS: Patient endorses intermittent fevers. Patient denies chills, night-sweats, body aches, dizziness, lighthteadness, chest pain, SOB, abdominal pain, N/V/D, back pain, flank pain, urinary s/s, burning with urination, blood in the urine/stool, suprapubic tenderness, or pain/numbness/tingling in the arms or legs. Admission Exam Per Admitting Provider Physical Exam: General: no acute distress; pleasant affect; non-toxic appearing; well- nourished; cooperative; SpO2 96% on RA HEENT: normocephalic, atraumatic; no scleral icterus; PERRLA; moist mucus membrane; vision and hearing intact Neck: supple; trachea midline Skin: warm, dry without signs of tenting; no cyanosis; no rashes, bruising, lesions, or erythema noted CV: chest wall NTP; RRR; S1/S2 normal; no murmurs/rubs/gallops; pulses intact and symmetric at radial, DP, and PT Lungs: no acute respiratory distress; symmetrical chest wall expansion; clear breath sounds across all lung luke w/o adventitious sounds; no wheezing ABD: Soft, NTP; BS present; no rebound/guarding; no distention; negative for flank pain; negative CVA tenderness : Negative suprapubic tenderness MSK: no tics or fasciculations; no edema noted in the LEs b/l, nonerythematous Neuro: Oriented to name/, not oriented to location/purpose/month; fluent speech; no focal deficits; sensation grossly intact in the LEs b/l Principal Diagnosis 1. Pyelonephritis N12 2. MALINA (acute kidney injury) N17.9 3. Dementia F03.90 4. Anxiety F41.9 Discharge Exam Constitutional: Vital signs as above were reviewed. Eyes: Pupils equal, round, and reactive to light. Extraocular muscles are intact. No proptosis. No photophobia. ENT: Mucous membranes are moist. Oropharynx is clear. No sinus tenderness. Cardiovascular: Heart with a regular rate and rhythm. Pulses are palpable and symmetric in all 4 extremities. No pedal edema appreciated. Respiratory: Lungs clear to auscultation bilaterally. No wheezes, rales, or rhonchi appreciated. No accessory muscle use. No retractions. No increased work of breathing. GI: Abdomen soft, nontender, nondistended. Normal active bowel sounds. No abdominal hernias appreciated. No rebound. No guarding. : No CVA tenderness appreciated. Musculoskeletal: No gross deformities. No bony tenderness. No calf swelling or tenderness. Integumentary: Warm, dry, no rashes appreciated. Neurological: Patient awake, alert. Oriented to person only - no change from admission per notes. Very pleasant with dementia. Follows simple commands. Discharge Data Allergies Allergy/AdvReac Type Severity Reaction Status Date / Time No Known Allergies Allergy Unverified 08/10/23 12:54 Consultations 10/21/23 13:26 ED Decision to Admit Stat Ordered Studies 10/21/23 11:19 CT abd pelvis IV con only Stat Laboratory Results 10/23/23 05:45 10/23/23 05:45 L Microbiology 10/21/23 Unknown Urine Culture - Preliminary Urine,Clean Catch Citrobacter freundii 10/21/23 11:15 Aerobic Blood Culture - Preliminary Blood No growth in Aerobic bottle after 24 hours. Anaerobic Blood Culture - Final 10/21/23 11:20 Aerobic Blood Culture - Preliminary Blood No growth in Aerobic bottle after 24 hours. Anaerobic Blood Culture - Preliminary No growth in Anaerobic bottle after 24 hours. L Hospital Course (1) Pyelonephritis: Urinary symptoms x 1 week with increased confusion, reported fevers up to 99 F at [facility] () CT A/P:findings consistent with pyelonephritis/pyelitis; no obstructive stones Blood culture: no growth at 24 hours Urine Culture: Gram negative Bacilli Rocephin 10/20 and 10/21. Will convert to Ciprofloxacin PO for a total of 10 days of treatment Continue PT/OT at [facility] (2) MALINA (acute kidney injury): Mild; likely secondary to UTI on admission BUN 17, creatinine 1.30 (baseline ~1.00), and EGFR 37.4 Received Plasma-Lyte x 1L Improving Cr 1.07 this morning (3) Dementia: Very pleasant Patient is a poor historian at baseline Continue donepezil (4) Anxiety: Continue escitalopram, prn lorazepam Plan Disposition: Discharge back to [facility] personal snf today VTE: Home [place] CM contacted son who will provide transportation Total Time Total Time Spent Total Time Spent (In Minutes): 35 Discharge Plan Discharge Items Patient Disposition: Personal [facility]dc Reason For Visit: URINARY SYMPTOMS AND CONFUSION Discharge Diagnosis: Pyelonyphritis Activity: Resume your previous activity Lifting: Gradually increase as tolerated Bathing: No limitations Exercise/Sports: Gradually increase as tolerated Weightbearing: Full weightbearing Non-emergency contact: Primary Care Provider Call non-emergency contact if: you have any medication questions and your temperature is above 101 Follow-up/Referrals: Chuy Mcdonald [Primary Care Provider] - Diet: Heart Healthy Addtl Attending Provider Instructions: Patient admitted and found to have pyelonephritis. She received ceftriaxone X 3 days. Urine culture returned with pansensitive Citrobacter sensitive to Ciprofloxacin. Rocephin discontinued 10/23/2023 and patient started on Ciprofoxacin 500mg by mouth daily. She should complete a total of 10 days of antibiotics. Blood cultures X 2 were negative. Pending Studies at Discharge: No Stand-Alone Forms: [employer] 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) Discharge Prognosis: Stable Lines: None Urinary Catheter: No Medications and DC Order Prescriptions: New ciprofloxacin HCl 500 mg Tablet 500 mg PO DAILY Qty: 8 0RF Continued donepezil 10 mg Tablet 10 mg PO .8PM pantoprazole 40 mg Tablet,Delayed Release (Dr/Ec) 40 mg PO .@8AM escitalopram oxalate 10 mg Tablet 10 mg PO .@8AM melatonin 5 mg Tablet 5 mg PO .@8PM cholecalciferol (vitamin D3) [Vitamin D3] 125 mcg (5,000 unit) Tablet 125 mcg PO .@8AM potassium chloride 20 mEq packet 20 meq PO .@8AM,5PM lorazepam 0.5 mg tablet 1 mg PO HS PRN (Reason: Anxiety) acetaminophen 325 mg Tablet 650 mg PO Q6H MDD 3g/24hr PRN (Reason: Pain) lorazepam 0.5 mg tablet 0.5 mg PO DAILY PRN (Reason: anxiety ) Eliquis 2.5 mg tablet 2.5 mg PO .@8AM,8PM No Action calcium carbonate-vitamin D3 [Calcium 600 + D(3)] 600 mg-10 mcg (400 unit) Tablet 1 tab PO .@8AM Discharge Orders: Discharge Order (Routine); Ordered 10/23/23 Ordered By: Shashi Thompson Admission Data Admit Date/Time: 10/22/23 15:59 Attending Provider: Adi García Admit Provider: Adi García Primary Care Provider: Chuy Mcdonald Other Providers: Venu Mendoza Coding Level of Care Code 07728 INP/OBS DISCH >30 MIN Diagnoses Pyelonephritis N12 MALINA (acute kidney injury) N17.9 Dementia F03.90 Anxiety F41.9 Time Spent (min) 35
== END 2023-10-23 15:24 | disposition home or self-care (01) | DRG 690 ==
LOC: EDINP 10:28 → ED 10:28 → SUATTDRO 13:51 → 3N 16:35
DX: I48.91 Unspecified atrial fibrillation; Z87.442 Personal history of urinary calculi; N12 Tubulo-interstitial nephritis, not specified as acute or chronic; F41.9 Anxiety disorder, unspecified; Z66 Do not resuscitate; N19 Unspecified kidney failure; I10 Essential (primary) hypertension; Z79.01 Long term (current) use of anticoagulants; F03.90 Unspecified dementia, unspecified severity, without behavioral disturbance, psychotic disturbance, mood disturbance, and anxiety

== ENCOUNTER 2024-04-06 10:01 | Observation (INO) ==
--- NOTE | 2024-04-06 11:09 | XRay Report ---
XR chest 1V not portable CLINICAL HISTORY: confusion TECHNIQUE: Single frontal radiograph of the chest was obtained. Comparison: Comparison is made to chest radiographs 05/14/2024 FINDINGS: No lines and tubes are seen. Calcified aortic knob is seen. The lungs are clear. No evidence of pleur al effusion or pneumothorax. IMPRESSION: No acute chest disease. ACT 112: Negative or not required by law. Electronically signed by: Narayan Garber M.D. 04/06/2024 11:07 AM
[2024-04-06 11:15] LABS: Basophils # (auto) 0.04 K/uL (0.00-0.20); Basophils % (auto) 0.7 %; Eosinophils # (auto) 0.21 K/uL (0.00-0.50); Eosinophils % (auto) 3.7 %; Hematocrit (blood only) 46.8 % (37.0-47.0); Hemoglobin 14.8 g/dl (12.0-16.0); Immature Granulocytes # (auto) 0.03 K/uL (0.01-0.20); Immature Granulocytes % (auto) 0.5 %; Lymphocytes # (auto) 1.21 K/uL (1.20-3.40); Lymphocytes % (auto) 21.5 %; Mean Corpuscular Hemoglobin 28.5 pg (25.0-34.0); Mean Corpuscular Hgb Conc 31.6 g/dL (32.0-36.0); Mean Platelet Volume 10.2 fL (9.4-12.4); Monocytes # (auto) 0.44 K/uL (0.11-0.59); Monocytes % (auto) 7.8 %; Neutrophils # (auto) 3.69 K/uL (1.40-6.50); Neutrophils % (auto) 65.8 %; Platelet Count 224 K/uL (130-400); RDW Coefficient of Variation 13.2 % (11.5-14.5); RDW Standard Deviation 43.9 fL (36.4-46.3); White Blood Count 5.62 K/ul (4.8-10.8)
--- NOTE | 2024-04-06 11:19 | Emergency Department Note ---
Impression & Plan UTI (urinary tract infection), Dementia, Weakness, Ambulatory dysfunction ED Provider Note NAME: MAX BEASLEY AGE: 83 SEX: F : 1940 ARRIVES VIA: Ambulance INFORMANT: Patient ED PROVIDER(S): Daniel Godwin DO CHIEF COMPLAINT: Weakness/cannot walk HPI: Patient is an 83-year-old female with past medical history of dementia, anxiety, UTIs, pyelonephritis who presents to the ER for the inability to walk. Son provides additional history and notes that she is at a personal fpc and she has been unable to get out of bed. They checked her for a UTI on Wednesday. This resulted today and the son notes that they just started are on antibiotics and he is not sure what she is taking. He notes that she has been unable to get up and move around today. Denies any headache or change in vision. No chest pain or shortness of breath. No belly pain but is pleasantly demented. ADDITIONAL HISTORY OBTAINED: Per HPI Chronic Medical/Social Conditions Affecting Care: Per HPI PAST MEDICAL HISTORY:See Below PAST SURGICAL HISTORY:See Below FAMILY HISTORY:See Below SOCIAL HISTORY:See Below HOME MEDICATIONS:See Below ALLERGIES:See Below VITALS:See Below PHYSICAL EXAMINATION: GENERAL: Sitting up in bed, alert, well appearing, well nourished, no distress, non-toxic EYE EXAM: normal conjunctiva. OROPHARYNX: mucous membranes are moist LUNGS: Clear to auscultation. Normal chest wall mechanics HEART: no murmurs, S1 normal and S2 normal ABDOMEN: abdomen soft, non-tender, normo-active bowel sounds, no masses, no rebound or guarding. UPPER EXTREMITIES: upper extremities are grossly normal. LOWER EXTREMITIES: No pitting edema. NEURO EXAM: Awake alert pleasantly demented oriented to person but not place or year moving all extremities nonfocal. MEDICAL DECISION MAKING: Patient is an 83-year-old female who presents to the ER for the above-stated complaint. IV was established medicos obtained. Labs show no significant leukocytosis or anemia. BMP along with LFTs bilirubin was unremarkable. UA is suggestive of a UTI. External records and previous cultures were reviewed patient was given IV cefepime as well as IV fluids. Updated bedside. Chest x- ray was clean. Patient was updated at bedside and discussed with hospitalist for further evaluation management and treatment. Consults/Care Managements Discussions: Per [facility] Triage Nursing notes reviewed. Limited review of prior medical records performed Vital Signs: reviewed and remarkable for HTN Differential diagnosis: Infection, dehydration, metabolic abnormality, hypo/hyperglycemia, electrolyte disturbance, anemia, hypoxia, cardiac sources, intracerebral event, toxicologic, neurologic, as well as other pathologies. ER treatment provided: See below Diagnostics interpreted by me include EKG and cardiac monitoring as listed below: -Cardiac Monitoring: An order was placed for continuous cardiac monitoring. The monitor shows a rate of 60 with sinus rhythm. -ECG: Sinus rhythm rate of 51 Left axis No PVCs T wave inversion in septal leads QTc 403 -Laboratory studies:Interpreted by me as stated above in MDM and shown below. Imaging studies: Xrays: As interpreted by me: Portable AP upright 1 view of the chest shows no focal infiltrate CTs show: none Procedures:none Critical Care: None Past Med/Surg History Problem List (Updated 04/06/24 @ 17:25 by Daniel Godwin DO) Ambulatory dysfunction (Acute) Weakness (Acute) UTI (urinary tract infection) (Acute) Ambulatory dysfunction Weakness (Acute) Pyelonephritis (Acute) Leukocytosis (Acute) Fever (Acute) SIRS (systemic inflammatory response syndrome) (Acute) Encounter for pre-operative examination Compression fx, lumbar spine (Acute) Kidney stone on left side (Acute) Acute hypotension (Acute) Urinary tract infection (Acute) Osteoarthritis Anxiety Dementia (Acute) Medical History Sepsis due to UTI per 07/19/23 urology records (admitted to [facility])- discharged on abx HTN (hypertension) Atrial fibrillation On Eliquis per records On anticoagulant therapy a fib reason for Eliquis per records Poor historian pt's step son (POA) provided hx GERD (gastroesophageal reflux disease) Kidney stones Anxiety Dementia Surgical History S/P ureteral stent placement History of cystoscopy History of appendectomy History of open reduction and internal fixation (ORIF) procedure Social History Smoking Status: Never smoker Second Hand Exposure: No; Do You Dip or Chew Tobacco: No; Hx Alcohol Use: No Hx Substance Use: No Preferred Language: Swazi Communication Ability: Effective 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: No Beliefs That Will Affect Care: None Current Living Situation: Personal Care Facility Current Living Situation Comment: [facility] Feels Safe at Home: Yes Assistive Devices: Glasses and Walker Allergies Allergies Allergy/AdvReac Type Severity Reaction Status Date / Time No Known Allergies Allergy Unverified 08/10/23 12:54 Home Meds Home Medications Medication Instructions Recorded Confirmed cholecalciferol (vitamin D3) 125 125 mcg PO .@8AM 04/05/23 04/06/24 mcg (5,000 unit) tablet (Vitamin D3) donepezil 10 mg tablet 10 mg PO .8PM 04/05/23 04/06/24 escitalopram oxalate 10 mg tablet 10 mg PO .@8AM 04/05/23 04/06/24 melatonin 5 mg tablet 5 mg PO .@8PM 04/05/23 04/06/24 pantoprazole 40 mg tablet,delayed 40 mg PO .@8AM 04/05/23 04/06/24 release lorazepam 0.5 mg tablet 1 mg PO HS Anxiety 06/10/23 04/06/24 potassium chloride 20 mEq oral 20 meq PO .@8AM,5PM 06/10/23 04/06/24 packet acetaminophen 325 mg tablet 650 mg PO Q6H PRN Pain 08/10/23 04/06/24 calcium carbonate 600 mg-vitamin 1 tab PO .@8AM 08/10/23 04/06/24 D3 10 mcg (400 unit) tablet (Calcium 600 + D(3)) apixaban 2.5 mg tablet (Eliquis) 2.5 mg PO .@8AM,8PM 10/21/23 04/06/24 cranberry 500 mg capsule 500 mg PO DAILY 04/06/24 04/06/24 methenamine hippurate 1 gram tablet 1 g PO DAILY 04/06/24 04/06/24 Results & Data (ED) Vital Signs Vital Signs - 24 hr 04/06/24 10:19 04/06/24 10:32 04/06/24 10:32 Temperature 37.2 C Temperature Source Oral Pulse Rate 55 L 58 L Pulse Rate [Apical] Respiratory Rate 22 Respiratory Effort / Characteristics Non-Labored Non-Labored Respiratory Depth Normal Normal Blood Pressure 143/63 H Blood Pressure [Left Arm] Blood Pressure Mean 89 Blood Pressure Mean [Left Arm] Pulse Oximetry 95 Oxygen Delivery Method Room Air Sepsis Recent Fever Within 48 Hours No Sepsis New/Unexplained Change in Mental Status No Sepsis Action Taken by Nursing No Action Required 04/06/24 12:00 Temperature Temperature Source Pulse Rate Pulse Rate [Apical] 53 L Respiratory Rate 15 Respiratory Effort / Characteristics Non-Labored Spontaneous Respiratory Depth Normal Blood Pressure Blood Pressure [Left Arm] 111/88 Blood Pressure Mean Blood Pressure Mean [Left Arm] 95 Pulse Oximetry 95 Oxygen Delivery Method Room Air Sepsis Recent Fever Within 48 Hours Sepsis New/Unexplained Change in Mental Status Sepsis Action Taken by Nursing Laboratory Data 04/06/24 10:37 04/06/24 10:37 Lab Results 04/06/24 04/06/24 Range/Units 10:37 12:40 WBC 5.62 (4.8-10.8) K/ul RBC 5.20 (4.20-5.40) M/uL Hgb 14.8 (12.0-16.0) g/dl Hct 46.8 (37.0-47.0) % MCV 90.0 (80.0-100.0) fL MCH 28.5 (25.0-34.0) pg MCHC 31.6 L (32.0-36.0) g/dL RDW Std Deviation 43.9 (36.4-46.3) fL RDW Coeff of Estefani 13.2 (11.5-14.5) % Plt Count 224 (130-400) K/uL MPV 10.2 (9.4-12.4) fL Immature Gran % (Auto) 0.5 % Neut % (Auto) 65.8 % Lymph % (Auto) 21.5 % Desha % (Auto) 7.8 % Eos % (Auto) 3.7 % Baso % (Auto) 0.7 % Neut # (Auto) 3.69 (1.40-6.50) K/uL Lymph # (Auto) 1.21 (1.20-3.40) K/uL Desha # (Auto) 0.44 (0.11-0.59) K/uL Eos # (Auto) 0.21 (0.00-0.50) K/uL Baso # (Auto) 0.04 (0.00-0.20) K/uL Immature Gran # (Auto) 0.03 (0.01-0.20) K/uL Sodium 140 (136-145) mmol/L Potassium 4.4 (3.5-5.1) mmol/L Chloride 105 (98-107) mmol/L Carbon Dioxide 31 (21-32) mmol/L Anion Gap 4 (3-11) BUN 17 (6-23) mg/dl Creatinine 1.03 (0.6-1.2) mg/dl Est Cr Clr Drug Dosing 34.5 ml/min Est GFR ( Amer) 57.4 ml/min Est GFR (Non-Af Amer) 49.5 ml/min BUN/Creatinine Ratio 16.5 (10-20) Glucose 93 (70-99(Fasting)) mg/dl Calcium 9.6 (8.6-10.3) mg/dl Total Bilirubin 0.7 (0.2-1.0) mg/dl AST 11 L (13-39) U/L ALT 4 L (7-52) U/L Alkaline Phosphatase 45 (34-104) U/L Total Protein 6.8 (6.0-8.3) gm/dl Albumin 4.0 (3.4-5.0) gm/dl Globulin 2.8 (2.5-4.0) gm/dl Albumin/Globulin Ratio 1.4 (0.9-2) Urine Color Yellow Urine Appearance Clear (Clear) Urine pH 6.0 (4.5-7.5) Ur Specific [place] 1.017 (1.000-1.030) Urine Protein Negative (Negative) Urine Glucose (UA) Negative (Negative) Urine Ketones Negative (Negative) Urine Blood Trace H (Negative) Urine Nitrite Negative (Negative) Urine Bilirubin Negative (Negative) Urine Urobilinogen Negative (Negative) Ur Leukocyte Esterase 2+ H (Negative) Urine WBC (Auto) >50 H (0-5) /hpf Urine RBC (Auto) 6-10 H (0-2) /hpf U Hyaline Cast (Auto) 0-2 (0-2) /lpf U Epithel Cells (Auto) 0-2 (0-2) /hpf Urine Bacteria (Auto) None Seen (None Seen) Urine Yeast Present A (None Prsent) Administered Medications Discontinued Medications Sodium Chloride (Nss) 500 mls @ 999 mls/hr IV .Q31M ONE Stop: 04/06/24 11:47 Last Infusion: 04/06/24 11:59 Dose: Infused Documented By: Admin: 04/06/24 11:27 Dose: 999 mls/hr Documented By: SHERYL Cefepime HCl (Maxipime) 2,000 mg in 20 mls @ 5 mls/min IV NOW STA; Protocol Stop: 04/06/24 11:23 Last Admin: 04/06/24 11:27 Dose: 5 mls/min Documented By: SHERYL Imaging Data Radiologist's Impression: Chest X-Ray 04/06/24 10:46 XR chest 1V not portable CLINICAL HISTORY: confusion TECHNIQUE: Single frontal radiograph of the chest was obtained. Comparison: Comparison is made to chest radiographs 05/14/2024 FINDINGS: No lines and tubes are seen. Calcified aortic knob is seen. The lungs are clear. No evidence of pleural effusion or pneumothorax. IMPRESSION: No acute chest disease. ACT 112: Negative or not required by law. Electronically signed by: Narayan Garber M.D. 04/06/2024 11:07 AM Discharge Plan Visit Data Chief Complaint: Illness Stated Complaint: UNABLE TO AMBULATE ED Provider: Daniel Godwin Discharge Problem: UTI (urinary tract infection), Dementia, Weakness, Ambulatory dysfunction Patient Disposition: Admitted As Inpatient Discharge Instructions Interventions: ED Discharge Assessment Last Done: 04/06/24 16:26 Discharge Problem: UTI (urinary tract infection) Qualifiers: Urinary tract infection type: site unspecified Hematuria presence: without hematuria Qualified Code(s): N39.0 - Urinary tract infection, site not specified Dementia Qualifiers: Dementia type: unspecified type Dementia severity: unspecified severity
[2024-04-06] MEDS: CEFEPIME 2,000 MG/20 ML VIAL IV STA (11:27)
[2024-04-06] MEDS: SODIUM CHLORIDE 0.9% 500 ML IV ONE (11:27)
[2024-04-06 11:28] LABS: Albumin Globulin Ratio 1.4 (0.9-2); BUN Creatinine Ratio 16.5 (10-20); Bilirubin,Total 0.7 mg/dl (0.2-1.0); Calcium 9.6 mg/dl (8.6-10.3); Creatinine Clr Calc Pharmacy 34.5 ml/min; Est GFR (African American) 57.4 ml/min; Est GFR (Non-African American) 49.5 ml/min; Globulin 2.8 gm/dl (2.5-4.0); Potassium 4.4 mmol/L (3.5-5.1); Total Protein 6.8 gm/dl (6.0-8.3)
[2024-04-06 13:07] LABS: Appearance Urine Clear (Clear); Bacteria Urine Automated None Seen (None Seen); Bilirubin Urine Negative (Negative); Blood Urine Trace (Negative); Cast Urine Automated 0-2 /lpf (0-2); Color Urine Yellow; Epithelial Cell Urine Auto 0-2 /hpf (0-2); Glucose Urine UA Negative (Negative); Ketones Urine Negative (Negative); Leukocyte Esterase Urine 2+ (Negative); Nitrite Urine Negative (Negative); Protein Urine Negative (Negative); Specific Gravity Urine 1.017 (1.000-1.030); Urobilinogen Urine Negative (Negative); WBC Urine Automated >50 /hpf (0-5)
--- NOTE | 2024-04-06 13:33 | History & Physical Report ---
Date of Service April 06, 2024 Assessment & Plan (1) Urinary tract infection: Plan: Patient came in for worsening UTI on 04/06 despite being placed on ciprofloxacin on 03/30 Failure of outpatient antibiotics Hx of UCx with E. coli resistance to ciprofloxacin Cefepime 2000 mg IV x 1 given in ED Will switch to Rocephin 2000 mg IV q24h Supportive care IVF with Plasma-Lyte at 80mL/hr x 1 L Follow current UCx A.m. CBC, BMP, mag (2) Ambulatory dysfunction: Plan: PT/OT evaluations appreciated Fall precautions Case management consulted for rehab placement upon discharge (3) Dementia: Plan: Patient is a poor historian at baseline Continue donepezil Plan [facility] Regular diet (easy to chew) VTE PPx: On Eliquis History of Present Illness Chief Complaint: UTI, ambulatory dysfunction Primary Care Provider: Chuy Morris is an 83-year-old female with PMH of dementia, anxiety, osteoarthritis, pyelonephritis, and recurrent UTIs. She arrived via EMS from [facility] on 04/06 for ambulatory dysfunction and UTI. She was recently diagnosed with UTI and started on ciprofloxacin. Despite this her symptoms have been worsening. Patient is a poor historian at baseline, and is unable to explain why she is in the hospital at time of admission. No family at bedside. Patient denies any recent falls or injuries to the abdomen/pelvis. She reports she does not walk with a cane or walker at baseline. Patient is mildly bradycardic at 53 bpm at time admission; vitals otherwise stable. ED course: Cefepime 2000 mg IV NSS 500 mL IV While ROS is difficult to obtain due to patient's underlying dementia: Patient endorses ambulatory dysfunction. Patient denies fever, headache, dizziness/lightheadedness, chest pain, SOB, cough, abdominal pain, burning with urination, or dysuria. Attempted to call patient's son (Jc) but was unable to reach. Allergies Allergy/AdvReac Type Severity Reaction Status Date / Time No Known Allergies Allergy Unverified 08/10/23 12:54 Home Medications Medication Instructions Recorded Confirmed Type cholecalciferol (vitamin D3) 125 125 mcg PO .@8AM 04/05/23 04/06/24 History mcg (5,000 unit) tablet (Vitamin D3) donepezil 10 mg tablet 10 mg PO .8PM 04/05/23 04/06/24 History escitalopram oxalate 10 mg tablet 10 mg PO .@8AM 04/05/23 04/06/24 History melatonin 5 mg tablet 5 mg PO .@8PM 04/05/23 04/06/24 History pantoprazole 40 mg tablet,delayed 40 mg PO .@8AM 04/05/23 04/06/24 History release lorazepam 0.5 mg tablet 1 mg PO HS Anxiety 06/10/23 04/06/24 History potassium chloride 20 mEq oral 20 meq PO .@8AM,5PM 06/10/23 04/06/24 History packet acetaminophen 325 mg tablet 650 mg PO Q6H PRN Pain 08/10/23 04/06/24 History calcium carbonate 600 mg-vitamin 1 tab PO .@8AM 08/10/23 04/06/24 History D3 10 mcg (400 unit) tablet (Calcium 600 + D(3)) apixaban 2.5 mg tablet (Eliquis) 2.5 mg PO .@8AM,8PM 10/21/23 04/06/24 History cranberry 500 mg capsule 500 mg PO DAILY 04/06/24 04/06/24 History methenamine hippurate 1 gram tablet 1 g PO DAILY 04/06/24 04/06/24 History Past Med/Surg History Problem List (Updated 04/06/24 @ 17:25 by Daniel Godwin DO) Ambulatory dysfunction (Acute) Weakness (Acute) UTI (urinary tract infection) (Acute) Ambulatory dysfunction Weakness (Acute) Pyelonephritis (Acute) Leukocytosis (Acute) Fever (Acute) SIRS (systemic inflammatory response syndrome) (Acute) Encounter for pre-operative examination Compression fx, lumbar spine (Acute) Kidney stone on left side (Acute) Acute hypotension (Acute) Urinary tract infection (Acute) Osteoarthritis Anxiety Dementia (Acute) Medical History Sepsis due to UTI per 07/19/23 urology records (admitted to [facility])- discharged on abx HTN (hypertension) Atrial fibrillation On Eliquis per records On anticoagulant therapy a fib reason for Eliquis per records Poor historian pt's step son (POA) provided hx GERD (gastroesophageal reflux disease) Kidney stones Anxiety Dementia Surgical History S/P ureteral stent placement History of cystoscopy History of appendectomy History of open reduction and internal fixation (ORIF) procedure Social History Smoking Status: Never smoker Second Hand Exposure: No; Do You Dip or Chew Tobacco: No; Hx Alcohol Use: No Hx Substance Use: No Preferred Language: Azeri Communication Ability: Effective Saw Operator Required: No Beliefs That Will Affect Care: None Current [facility]uation[facility] Current Living Situation Comment: [facility] Feels Safe at Home: Yes Safety Concerns: Feels Safe At This Time Assistive Devices: Denture - Upper, Denture - Lower and Glasses Review of Systems Review of Systems: See HPI above Physical Exam Physical Exam: General: no acute distress; non-toxic appearing; frail appearing; SpO2 95% on RA HEENT: normocephalic, atraumatic; no scleral icterus; PERRLA; vision and hearing intact Neck: supple; no lymphadenopathy; trachea midline Skin: warm, dry without signs of tenting; no cyanosis; no rashes, bruising, lesions, or erythema noted CV: chest wall NTP; RR around 60 bpm; S1/S2 normal; no murmurs/rubs/gallops; pulses intact and symmetric at radial, DP, and PT Lungs: no acute respiratory distress; symmetrical chest wall expansion; clear breath sounds across all lung luke w/o adventitious sounds; no wheezing ABD: Soft, NTP; BS present; no rebound/guarding; no distention MSK: no tics or fasciculations; no edema noted in the LEs b/l, nonerythematous; patient demonstrates ability to wiggle toes/plantarflex/dorsiflex bilaterally against resistance Neuro: A&Ox3; fluent speech; no focal deficits; patient reports that sensation is intact and symmetric in the lower EXTR bilaterally Results & Data Results & Data Vital Signs (Past 12 Hours) Vital Signs Temp Pulse Pulse Resp BP BP Pulse Ox 04/06/24 12:00 53 L 15 111/88 95 04/06/24 10:32 37.2 C 58 L 22 143/63 H 95 04/06/24 10:19 55 L O2 Del Method 04/06/24 12:00 Room Air 04/06/24 10:32 Room Air 04/06/24 10:19 Laboratory Results Abnormal lab results 04/06/24 04/06/24 Range/Units 10:37 12:40 MCHC 31.6 L (32.0-36.0) g/dL AST 11 L (13-39) U/L ALT 4 L (7-52) U/L Urine Blood Trace H (Negative) Ur Leukocyte Esterase 2+ H (Negative) Urine WBC (Auto) >50 H (0-5) /hpf Urine RBC (Auto) 6-10 H (0-2) /hpf Urine Yeast Present A (None Prsent) Diagnostic Findings Chest X-Ray 04/06/24 10:46 XR chest 1V not portable CLINICAL HISTORY: confusion TECHNIQUE: Single frontal radiograph of the chest was obtained. Comparison: Comparison is made to chest radiographs 05/14/2024 FINDINGS: No lines and tubes are seen. Calcified aortic knob is seen. The lungs are clear. No evidence of pleural effusion or pneumothorax. IMPRESSION: No acute chest disease. ACT 112: Negative or not required by law. Electronically signed by: Narayan Garber M.D. 04/06/2024 11:07 AM ECG Additional Comments: ECG revealed sinus bradycardia at 51 bpm; QTc 403 Code Status & VTE Plan Code Status DNR/DNI (attempted to reach patient's son/POA, but was unable to reach; patient does not exhibit medical capacity at this time; will base DNR/DNI on prior discussions with patient's son/POA - see past notes) VTE Prophylaxis Plan VTE Prophylaxis will be ordered: Yes Supervising Physician Co-Signing Physician Notes Patient seen and examined, chart reviewed, case discussed with Derek Montes PA-C and I agree with the assessment and plan as above except as otherwise noted Labs and images reviewed History of 83-year-old female with a history of dementia, UTIs with no resistant organisms who presents with progressive weakness. Has been on treatment as outpatient for UTI but has been progressively weak. [facility] however requires independent ambulation to remain at that level of care and currently exceeds this level of care due to her weakness. Is recommended for treatment of suspected UTI, PT/OT, and additional placement evaluation if indicated. UA is complicated by recent antibiotics but is with yeast, leukocyte esterase and no nitrites. COVID test has been added. Agree with above. PG Care Time/CCT Total # of Minutes Spent Total Time Spent with Patient: Total time spent is greater than 50% in coordination of care (as documented) at patient's floor/unit and/or counseling patient: [place] [address] INT INP/OBS CARE 2/55MIN Patient Type Established History Comprehensive Exam Comprehensive Medical Decision Making Moderate Complexity Diagnoses Urinary tract infection N39.0; R31.9 Hematuria presence: with hematuria Urinary tract infection type: site unspecified Ambulatory dysfunction R26.2 Dementia F03.90 Dementia severity: unspecified severity Dementia type: unspecified type (1) Urinary tract infection Hematuria presence: with hematuria Urinary tract infection type: site unspecified Qualified Code(s): N39.0 - Urinary tract infection, site not specified; R31.9 - Hematuria, unspecified (3) Dementia Dementia severity: unspecified severity Dementia type: unspecified type
[2024-04-06] MEDS ORDERED: ONDANSETRON INJ 2 MG/ML 2 ML VIAL IV PRN (17:22)
[2024-04-06] MEDS ORDERED: ACETAMINOPHEN 325 MG TAB PO PRN (17:22)
[2024-04-06] MEDS: POTASSIUM CHLORIDE PWD 20 MEQ PACK PO SCH (18:15)
[2024-04-06] MEDS: LORazepam 1 MG TAB PO SCH (20:39)
[2024-04-06] MEDS: MELATONIN 3 MG TAB PO SCH (20:39)
[2024-04-06] MEDS: APIXABAN 2.5 MG TAB PO SCH (20:39)
[2024-04-06] MEDS: DONEPEZIL HCL 10 MG TAB PO SCH (20:39)
[2024-04-06] MEDS: cefTRIAXone SODIUM 2,000 MG/50 ML BAG IV SCH (20:44)
[2024-04-06] MEDS: PLASMA-LYTE A 1,000 ML IV SCH (22:09)
--- NOTE | 2024-04-06 22:51 | Electrocardiogram Report ---
Test Reason : Blood Pressure : */* mmHG Vent. Rate : 51 BPM Atrial Rate : 51 BPM P-R Int : 194 ms QRS Dur : 80 ms QT Int : 438 ms P-R-T Axes : 46 -41 35 degrees QTcB Int : 403 ms Sinus bradycardia Left axis deviation Abnormal ECG When compared with ECG of 12-Jan-2024 10:13, No significant change was found Confirmed by Aldair Mackey ([id number]) on 04/06/2024 10:50:37 PM Referred By: REFERRED SELF Confirmed By: Aldair Mackey
[2024-04-07] MEDS: PANTOprazole 40 MG TAB PO SCH (08:10)
[2024-04-07] MEDS: ESCITALOPRAM OXALATE 10 MG TAB PO SCH (08:10)
[2024-04-07] MEDS ORDERED: cefTRIAXone SODIUM 2,000 MG/50 ML BAG IV SCH (09:00)
[2024-04-07] MEDS ORDERED: NON-FORMULARY MEDICATION (Cranberry 500 mg Capsule) PO SCH (09:00)
[2024-04-07 09:39] LABS: Hematocrit (blood only) 40.9 % (37.0-47.0); Hemoglobin 13.4 g/dl (12.0-16.0); Mean Corpuscular Hemoglobin 28.7 pg (25.0-34.0); Mean Corpuscular Hgb Conc 32.8 g/dL (32.0-36.0); Mean Corpuscular Volume 87.6 fL (80.0-100.0); Mean Platelet Volume 9.7 fL (9.4-12.4); Platelet Count 197 K/uL (130-400); RDW Coefficient of Variation 13.1 % (11.5-14.5); RDW Standard Deviation 41.8 fL (36.4-46.3); Red Blood Count 4.67 M/uL (4.20-5.40); White Blood Count 6.94 K/ul (4.8-10.8)
[2024-04-07 09:53] LABS: BUN Creatinine Ratio 14.3 (10-20); Calcium 8.9 mg/dl (8.6-10.3); Est GFR (African American) 66.7 ml/min; Est GFR (Non-African American) 57.5 ml/min; Magnesium 1.8 mg/dl (1.7-2.4)
--- NOTE | 2024-04-07 12:08 | Hospitalist Progress Note ---
Date of Service April 07, 2024 Assessment & Plan (1) Urinary tract infection: Plan: Patient came in for worsening UTI on 04/06 despite being placed on ciprofloxacin on 03/30 - Hx of UCx with E. coli resistance to ciprofloxacin Continue Rocephin 2000 mg IV q24h Received Plasma-Lyte at 80mL/hr x 1 L UC: pending - will plan to keep patient until sensitives given her hx of resistance and behavioral changes with acitve infection PT/OT pending (2) Dementia: Plan: Patient is a poor historian at baseline Continue donepezil Plan Chronic stable medical conditions: * mental health - continue lexapro, prn ativan * afib - continue Eliquis Disposition: Continue inpatient stay VTE PPx: On Eliquis Admission and Anticipated Discharge Date Admission Date: April 06, 2024 Supervising Physician Co-Signing Physician Notes chart reviewed and case d/w Carter Wilkins PAC - agree with above Subjective patient seen lying in bed, pleasant, and. She tells me that she is in 2022. When I told her she is in the hospital she cannot believe it. She does not know why she is here. Review of Systems Review of Systems: All systems reviewed & are unremarkable except as noted in Subjective Physical Exam Physical Exam: General: NAD, VS as above Resp: normal respiratory effort, lungs clear to auscultation CV: RRR, no murmur, Abd: soft, non tender Extremities: Moves all extremities, no edema Neuro: A&O x1 (this is baseline), Skin: intact, no lesions noted Results & Data Results & Data Vital Signs (Past 12 Hours) Vital Signs Pulse Resp BP Pulse Ox O2 Del Method 04/07/24 08:42 89 18 134/63 92 Room Air Laboratory Results CBc and chemistry reviewed mag reviewed PG Care Time/CCT Total # of Minutes Spent Total Time Spent with Patient: Total time spent is greater than 50% in coordination of care (as documented) at patient's floor/unit and/or counseling patient: Coding Level of Care Code 80224 SUB INP/OBS CARE 2/35MIN Diagnoses Urinary tract infection N39.0; R31.9 Hematuria presence: with hematuria Urinary tract infection type: site unspecified Dementia F03.90 Dementia severity: unspecified severity Dementia type: unspecified type (1) Urinary tract infection Hematuria presence: with hematuria Urinary tract infection type: site unspecified Qualified Code(s): N39.0 - Urinary tract infection, site not specified; R31.9 - Hematuria, unspecified (2) Dementia Dementia severity: unspecified severity Dementia type: unspecified type
[2024-04-08 06:41] LABS: Hemoglobin 14.5 g/dl (12.0-16.0); Mean Corpuscular Hemoglobin 28.6 pg (25.0-34.0); Mean Corpuscular Hgb Conc 32.2 g/dL (32.0-36.0); Mean Corpuscular Volume 88.8 fL (80.0-100.0); Platelet Count 204 K/uL (130-400); RDW Coefficient of Variation 13.1 % (11.5-14.5); RDW Standard Deviation 42.5 fL (36.4-46.3); Red Blood Count 5.07 M/uL (4.20-5.40); White Blood Count 6.44 K/ul (4.8-10.8)
[2024-04-08 07:06] LABS: BUN Creatinine Ratio 15.7 (10-20); Calcium 9.3 mg/dl (8.6-10.3); Creatinine Clr Calc Pharmacy 39.9 ml/min; Est GFR (African American) 68.5 ml/min; Est GFR (Non-African American) 59.1 ml/min
--- NOTE | 2024-04-08 13:36 | Hospitalist Progress Note ---
Date of Service April 08, 2024 Assessment & Plan (1) Urinary tract infection: Plan: Patient came in for worsening UTI on 04/06 despite being placed on ciprofloxacin on 03/30 - Hx of UCx with E. coli resistance to ciprofloxacin Received Plasma-Lyte at 80mL/hr x 1 L UC: + for Yeast not Donita albicans--> no indwelling stents or Beltran, likely contaminant from vaginal justo Patient treated with Cefepime x 1 dose in ED and Rocephin x 2 doses Stop Rocephin 04/08 Patient stable for discharge from medical standpoint - will discuss w/ Case management on 04/09 regarding placement. CBC/BMP reviewed 04/08: stable (2) Dementia: Plan: Patient is a poor historian at baseline Continue donepezil Plan Chronic stable medical conditions: * mental health - continue Lexapro, prn Ativan -consider weaning off ativan as this alone could cause delirium or ambulatory dysfunction in the elderly * afib - continue Eliquis Disposition: Continue inpatient stay, pending placement VTE PPx: On Eliquis Admission and Anticipated Discharge Date Admission Date: April 06, 2024 Supervising Physician Co-Signing Physician Notes PA Supervision Note: I did not personally see or examine the patient today, but I verified all fox points of STUART Rivera's assessment and plan with the following exceptions/additions: None Subjective Patient seen and examined this morning with nursing at bedside. Patient only oriented to self. Patient denied any complaints. Physical Exam 2 Constitutional: WD/WN, vitals as above Eyes: PERRL, conjunctivae normal, anicteric sclerae Respiratory: normal respiratory effort, lungs clear to auscultation Cardiovascular: RRR, no murmur, no edema Gastrointestinal (Abdomen): normal bowel sounds, soft, nontender, no hepatosplenomegaly Psychiatric: AxOx1 Results & Data Results & Data Vital Signs (Past 12 Hours) Vital Signs Temp Pulse Resp BP Pulse Ox O2 Del Method 04/08/24 11:07 36.7 C 81 14 135/65 94 Room Air Laboratory Results 04/08/24 05:55 04/08/24 05:55 PG Care Time/CCT Total # of Minutes Spent Total Time Spent with Patient: Total time spent is greater than 50% in coordination of care (as documented) at patient's floor/unit and/or counseling patient: Coding Level of Care Code 88943 SUB INP/OBS CARE MIN Diagnoses Urinary tract infection N39.0; R31.9 Hematuria presence: with hematuria Urinary tract infection type: site unspecified Dementia F03.90 Dementia severity: unspecified severity Dementia type: unspecified type (1) Urinary tract infection Hematuria presence: with hematuria Urinary tract infection type: site unspecified Qualified Code(s): N39.0 - Urinary tract infection, site not specified; R31.9 - Hematuria, unspecified (2) Dementia Dementia severity: unspecified severity Dementia type: unspecified type
[2024-04-09 07:22] VITALS: BP 132/63; PULSE 55; RESP 16; TEMP 97.9; O2SAT 95
--- NOTE | 2024-04-09 11:04 | Discharge Summary ---
Discharge Summary Date of Service April 09, 2024 Principal Dx & Hospital Course #1 = Principal Diagnosis (1) Urinary tract infection: Patient came in for worsening UTI on 04/06 despite being placed on ciprofloxacin on 03/30 - Hx of UCx with E. coli resistance to ciprofloxacin Received Plasma-Lyte at 80mL/hr x 1 L UC: + for Yeast not Donita albicans--> no indwelling stents or Beltran, likely contaminant from vaginal justo Patient treated with Cefepime x 1 dose in ED and Rocephin x 2 doses Stopped Rocephin 04/08-no need for further antibiotic therapy Patient stable for discharge from medical standpoint CBC/BMP reviewed 04/08: stable (2) Dementia: Patient is a poor historian at baseline Continue donepezil Plan Patient re-evaluated by PT on 04/09 and was able to walk 180 ft. Patient was safe to discharge back to personal care facility. Chronic stable medical conditions: * mental health - continue Lexapro, prn Ativan -consider weaning off ativan as this alone could cause delirium or ambulatory dysfunction in the elderly * afib - continue Eliquis Notes For Next Care Provider Medication Changes From Visit None Admission HPI Per Admitting Provider Alexandra is an 83-year-old female with PMH of dementia, anxiety, osteoarthritis, pyelonephritis, and recurrent UTIs. She arrived via EMS from [facility] on 04/06 for ambulatory dysfunction and UTI. She was recently diagnosed with UTI and started on ciprofloxacin. Despite this her symptoms have been worsening. Patient is a poor historian at baseline, and is unable to explain why she is in the hospital at time of admission. No family at bedside. Patient denies any recent falls or injuries to the abdomen/pelvis. She reports she does not walk with a cane or walker at baseline. Patient is mildly bradycardic at 53 bpm at time admission; vitals otherwise stable. ED course: Cefepime 2000 mg IV NSS 500 mL IV While ROS is difficult to obtain due to patient's underlying dementia: Patient endorses ambulatory dysfunction. Patient denies fever, headache, dizziness/lightheadedness, chest pain, SOB, cough, abdominal pain, burning with urination, or dysuria. Attempted to call patient's son (Jc) but was unable to reach. Discharge Exam Constitutional WD/WN, vitals as above Eyes PERRL, conjunctivae normal, anicteric sclerae Respiratory normal respiratory effort, lungs clear to auscultation Cardiovascular RRR, no murmur, no edema Psychiatric AxOx1 Discharge Plan Discharge Items Patient Disposition: Personal Shelter Reason For Visit: AMBULATORY DYSFUNCTION, UTI Discharge Diagnosis: ambulatory dysfunction Activity: Resume your previous activity Non-emergency contact: Primary Care Provider Call non-emergency contact if: you have any medication questions and your symptoms worsen Follow-up/Referrals: Chuy Mcdonald [Primary Care Provider] - (Please follow up with PCP within 1-2 weeks of discharge) Diet: Regular Diet Texture: Easy to Chew Addtl Attending Provider Instructions: Ms. Albert, You were recently hospitalized for issues with walking. Please see recommendations below regarding discharge. 1. Your urine cultures are negative thus far for bacteria in your urine. You do not require any antibiotics upon discharge. If finalized culture results do reveal bacteria, someone will be in contact with you. 2. Please consider weaning off Ativan as needed as this can worsening delirium o r issues with balance. 3. Please resume remainder of outpatient medications. 4. Please follow up with PCP within 1-2 weeks of discharge If you develop any worsening symptoms including weakness, urinary frequency/urgency, increased confusion please report to the ER for further care. Sincerely, Emilia Rivera PA-C Pending Studies at Discharge: Yes Studies:: final Urine culture result Stand-Alone Forms: My [employer], Smoking Cessation Skilled Items Patient informed of condition?: Yes DNR: Yes Discharge Level of Care: Other Communicable Disease: No Discharge Prognosis: Improving Lines: None Urinary Catheter: No Medications and DC Order Prescriptions: Continued donepezil 10 mg Tablet 10 mg PO .8PM pantoprazole 40 mg Tablet,Delayed Release (Dr/Ec) 40 mg PO .@8AM escitalopram oxalate 10 mg Tablet 10 mg PO .@8AM melatonin 5 mg Tablet 5 mg PO .@8PM cholecalciferol (vitamin D3) [Vitamin D3] 125 mcg (5,000 unit) Tablet 125 mcg PO .@8AM potassium chloride 20 mEq packet 20 meq PO .@8AM,5PM lorazepam 0.5 mg tablet 1 mg PO HS acetaminophen 325 mg Tablet 650 mg PO Q6H MDD 3g/24hr PRN (Reason: Pain) calcium carbonate-vitamin D3 [Calcium 600 + D(3)] 600 mg-10 mcg (400 unit) Tablet 1 tab PO .@8AM Eliquis 2.5 mg tablet 2.5 mg PO .@8AM,8PM methenamine hippurate 1 gram tablet 1 g PO DAILY cranberry 500 mg Capsule 500 mg PO DAILY Rx Instructions: administer with meals Discharge Orders: Discharge Order (Routine); Ordered 04/09/24 Ordered By: Claire Scales/Other Patient Handouts: UTIs Admission Data Admit Date/Time: 04/06/24 13:51 Attending Provider: Claire Zepeda Admit Provider: Venu Mendoza Primary Care Provider: Chuy Mcdonald Other Providers: Venu Mendoza Other Interventions: Discharge Summary Assessment (RN) Last Done: 04/09/24 10:45 Hospital Stay Data Consultations 04/06/24 13:44 ED Decision to Admit Stat Pending Results Patient Have Any Pending Studies at Discharge: Yes Discharge Instructions Given to Patient (Per Discharging Provider) Ms. Albert, Delroy were recently hospitalized for issues with walking. Please see recommendations below regarding discharge. 1. Your urine cultures are negative thus far for bacteria in your urine. You do not require any antibiotics upon discharge. If finalized culture results do reveal bacteria, someone will be in contact with you. 2. Please consider weaning off Ativan as needed as this can worsening delirium or issues with balance. 3. Please resume remainder of outpatient medications. 4. Please follow up with PCP within 1-2 weeks of discharge If you develop any worsening symptoms including weakness, urinary frequenc y/urgency, increased confusion please report to the ER for further care. Sincerely, Emilia Rivera PA-C Supervising Physician Co-Signing Physician Notes PA Supervision Note: I personally saw and examined the patient. I verified all fox points and agree with STUART Rivera with the following exceptions and/or additions: S-patient denies any problems or pain, pleasantly confused O- Vitals reviewed Gen: AAOx1, NAD HEENT: Anicteric sclerae CV: RRR no mgr nl S1S2 Pulm: CTAB no wcr Abd: +BS soft NT ND no masses or hernias Ext: No edema Skin: No rashes, warm/dry Urine culture reviewed A/E-72-avnk-old female with significant dementia, here with generalized weakness and acute metabolic encephalopathy-now resolved back to baseline Treated for UTI but urine culture with yeast, likely contaminant No further treatment needed Stable for discharge to personal-shelter Total Time Total Time Spent Total Time Spent (In Minutes): 35 Total Time Includes: Examination of the Patient, Discharge Planning and Medication Reconciliation Coding Level of Care Code 42394 INP/OBS DISCH >30 MIN Diagnoses Urinary tract infection N39.0; R31.9 Hematuria presence: with hematuria Urinary tract infection type: site unspecified Dementia F03.90 Dementia severity: unspecified severity Dementia type: unspecified type
== END 2024-04-09 15:17 | disposition home or self-care (01) | DRG 690 ==
LOC: ED 10:01 → 3W 13:51 → SUATTDRO 13:51 → INTOOBSV 13:51 → 3W 16:26